=== PATIENT | male | born 1940 | race African-American/Black ===

== ENCOUNTER 2016-07-26 14:04 | Inpatient (IN) | payer MEDICARE, OTHER ==
[2016-07-26] MEDS ORDERED: SODIUM CHLORIDE 0.9% 1,000 ML IV STA ×3 (15:28→17:41)
--- NOTE | 2016-07-26 15:45 | ED ---
General Adult HPI - General Chief complaint: Extremity Problem,Nontraumatic Stated complaint: DIFFICULTY WALKING Time Seen by Provider: 07/26/16 15:06 Source: patient Mode of arrival: EMS Limitations: no limitations - History of Present Illness Initial comments: Patient is a 75-year-old male who presents to the ED with a chief complaint of difficulty with ambulation. Patient states that he was at home earlier today and noted that he was having a difficult time getting from a seated position to a standing position. Patient states that his legs were very painful when he finally got onto his feet. Patient states that he feels pain in the right flank and sciatic region that radiates down the right posterior leg. Patient notes that he has also felt weakness of both lower extremities. She states that this is a relatively new problem. Patient notes that he drank somewhere between a half pint and a full pint of hard liquor today. He states that he drinks on a regular basis. Patient denies any visual changes or weakness of his upper extremities. Patient denies any recent trauma to his back. Patient denies any fevers or chills. He denies any difficulty with urination or urinary incontinence. Patient denies any difficulty with bowel movements or fecal incontinence. 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 He states that his most recent CVA was in February 2016. His hospitalized at [facility] when this occurred. 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 Patient states that he might have also had a syncopal episode today. He is very vague regarding details of this incident. - Related Data Home Medications Medication Instructions Recorded Confirmed Albuterol Sulfate [Proair Hfa] 2 puff INHALATION RT-Q6H PRN 02/13/16 07/26/16 Aspirin EC [Ecotrin Low Dose] 81 mg PO DAILY 02/13/16 07/26/16 Gabapentin [Neurontin] 300 mg PO HS 02/13/16 07/26/16 Ibuprofen [Motrin] 800 mg PO TID PRN 07/26/16 07/26/16 Naproxen 500 mg PO Q12HR 07/26/16 07/26/16 Pravastatin Sodium [Pravachol] 20 mg PO HS 07/26/16 07/26/16 Ranitidine HCl 300 mg PO HS 07/26/16 07/26/16 Allergies Allergy/AdvReac Type Severity Reaction Status Date / Time iodine Allergy Unknown Verified 07/26/16 14:23 Review of Systems ROS Statement: Those systems with pertinent positive or pertinent negative responses have been documented in the HPI. ROS Other: All systems not noted in ROS Statement are negative. Constitutional: Reports: weakness. Denies: fever, chills, night sweats Eyes: Denies: eye pain, vision change ENT: Denies: ear pain, throat pain, dental pain, hearing loss, epistaxis Respiratory: Denies: cough, dyspnea, wheezes Cardiovascular: Denies: chest pain, palpitations, dyspnea on exertion Endocrine: Reports: fatigue Gastrointestinal: Denies: abdominal pain, nausea, vomiting, diarrhea, constipation Genitourinary: Denies: urgency, dysuria, frequency, hematuria Musculoskeletal: Reports: myalgia. Denies: back pain, joint swelling Skin: Denies: rash, lesions, change in color Neurological: Reports: weakness (weakness of the bilateral lower legs secondary to pain). Denies: headache, numbness, paresthesias Psychiatric: Denies: anxiety, depression Past Medical History Past Medical History: Atrial Fibrillation, CVA/TIA, Hypertension, Myocardial Infarction ([place]) Additional Past Medical History / Comment(s): Glaucoma; CVAx2; History of Any Multi-Drug Resistant Organisms: None Reported Past Surgical History: Unable to Obtain Past Psychological History: No Psychological Hx Reported Smoking Status: Never smoker Past Alcohol Use History: Occasional Past Drug Use History: None Reported General Exam Limitations: no limitations General appearance: alert, in no apparent distress Head exam: Present: atraumatic, normocephalic, normal inspection Eye exam: Present: normal appearance, PERRL, EOMI, other (pupils are 3mm, equal reactive to light). Absent: scleral icterus Pupils: Present: normal accommodation ENT exam: Present: normal exam, mucous membranes dry Neck exam: Present: normal inspection Respiratory exam: Present: normal lung sounds bilaterally. Absent: respiratory distress, wheezes, rales, rhonchi, stridor Cardiovascular Exam: Present: regular rate, irregular rhythm GI/Abdominal exam: Present: soft. Absent: distended, tenderness, guarding, rebound Extremities exam: Present: normal inspection, full ROM, tenderness (tenderness to palpation in the region of the right SI joint), other (5/5 strength of the bilateral upper and lower extremities) Back exam: Present: tenderness (tenderness in the region of the right SI joint) Neurological exam: Present: alert, oriented X3 Psychiatric exam: Present: normal affect, normal mood. Absent: depressed, agitated, anxious Skin exam: Present: warm, dry, intact Course Vital Signs 07/26/16 07/26/16 07/26/16 14:20 17:39 17:48 Temperature 96.7 F L 97.7 F Pulse Rate 87 85 85 Respiratory 18 18 18 Rate Blood Pressure 105/55 78/53 77/50 O2 Sat by Pulse 97 97 96 Oximetry 07/26/16 07/26/16 07/26/16 17:50 17:53 17:59 Temperature Pulse Rate 88 86 Respiratory 18 18 Rate Blood Pressure 81/53 84/52 98/56 O2 Sat by Pulse 97 98 Oximetry 07/26/16 07/26/16 18:20 19:47 Temperature Pulse Rate 87 91 Respiratory 18 16 Rate Blood Pressure 97/62 100/70 O2 Sat by Pulse 100 100 Oximetry EKG Findings - EKG Comments: EKG Findings:: EKG demonstrates atrial fibrillation with a rate of 86. There are no concerning ST or T-wave changes. There is a right bundle branch block present. Medical Decision Making - Medical Decision Making Patient is a 75-year-old male who presents to the ED with a chief complaint of pain with ambulation. Patient states that these symptoms have been present over the course the day today. Patient remarks that he may have also had a syncopal episode earlier today. States that he was sitting in his house when a friend woke him up, stating that he was drooling out of the side of his mouth unresponsive for a period of time. Patient does not remember this episode frequently. She does pain in the right SI region. There is no bony tenderness to palpation on examination. Patient does have atrial fibrillation but is not actively anticoagulated this point in time. Patient does have history of CVA 3. Most recent CVA in February 2016. Patient states that he has no deficits from prior CVAs. Patient denies any chest pain, shortness of breath. Denies any dysuria or hematuria. Check CT head given syncopal episode and complaints of lower extremity weakness. Check CPK given the patient is complaining of pain in the bilateral anterior thighs. Possible patient is suffering from sciatica given right lower extremity pain that is located particularly in the region of the right SI joint. Check x-ray lumbar spine as well given the patient is complaining of pain overall in this region. Check CBC, BMP,. Check PT/INR. EKG. Troponin and BNP as well. 5:27 PM Patient noted to have evidence of a chaotic. Baseline creatinine 1.30. Creatinine today noted to be 3.60. In addition, patient's CK noted at 5500. We 'll check urine electrolytes and ultrasound of kidneys and bladder. Suspect that TYRESE is prerenal in nature. Will continue with maintenance fluids at 150 mL /h. 5:48 PM Updated that patient's BP is 78/48. Suspect patient is quite dehydrated. Will bolus with IVF. 6:05 PM BP improved to 96/58. Will ensure that BP continues to improve before sending patient for Ultrasound Renal. 7:20 PM Patient awakens easily. States that he is feeling improved and that the pain in his legs is better. BP is 103/56. Will order additional 500cc IVF. 8:04 PM Patient's BP stable at 100-110 systolic. Spoke with Arina Maya, who accepts admission of patient. She has requested that Nephrology be placed on consult. - Lab Data Result diagrams: 07/26/16 13:26 07/26/16 13:26 Lab Results 07/26/16 07/26/16 07/26/16 Range/Units 13:26 13:26 13:26 WBC 5.3 (3.8-10.6) k/uL RBC 3.82 L (4.30-5.90) m/uL Hgb 12.7 L (13.0-17.5) gm/dL Hct 37.8 L (39.0-53.0) % MCV 98.8 (80.0-100.0) fL MCH 33.1 (25.0-35.0) pg MCHC 33.5 (31.0-37.0) g/dL RDW 12.8 (11.5-15.5) % Plt Count 102 L (150-450) k/uL Neutrophils % (Manual) 47.0 % Lymphocytes % (Manual) 33.0 % Monocytes % (Manual) 17.0 % Eosinophils % (Manual) 3.0 % Neutrophils # (Manual) 2.5 (1.3-7.7) k/uL Lymphocytes # (Manual) 1.7 (1.0-4.8) k/uL Monocytes # (Manual) 0.9 (0-1.0) k/uL Eosinophils # (Manual) 0.2 (0-0.7) k/uL Nucleated RBCs 0 (0-0) /100 WBC Manual Slide Review Performed Large Platelets Present Polychromasia Present PT (9.0-12.0) sec INR (<1.1) Sodium 139 (137-145) mmol/L Potassium 4.2 (3.5-5.1) mmol/L Chloride 105 (98-107) mmol/L Carbon Dioxide 18 L (22-30) mmol/L Anion Gap 16 mmol/L BUN 21 H (9-20) mg/dL Creatinine 3.60 H (0.66-1.25) mg/dL Est GFR (MDRD) Af Amer 20 (>60 ml/min/1.73 sqM) Est GFR (MDRD) Non-Af 17 (>60 ml/min/1.73 sqM) Glucose 94 (74-99) mg/dL Osmolality (280-301) mosm/kg Calcium 9.3 (8.4-10.2) mg/dL Magnesium 1.5 L (1.6-2.3) mg/dL Total Bilirubin 1.0 (0.2-1.3) mg/dL AST 114 H (17-59) U/L ALT 46 (21-72) U/L Alkaline Phosphatase 70 (38-126) U/L Creatine Kinase 5503 H (55-170) U/L Troponin I (0.000-0.034) ng/mL NT-Pro-B Natriuret Pep 532 pg/mL Total Protein 6.9 (6.3-8.2) g/dL Albumin 3.8 (3.5-5.0) g/dL Serum Alcohol 20 mg/dL 07/26/16 07/26/16 07/26/16 Range/Units 13:26 13:26 13:26 WBC (3.8-10.6) k/uL RBC (4.30-5.90) m/uL Hgb (13.0-17.5) gm/dL Hct (39.0-53.0) % MCV (80.0-100.0) fL MCH (25.0-35.0) pg MCHC (31.0-37.0) g/dL RDW (11.5-15.5) % Plt Count (150-450) k/uL Neutrophils % (Manual) % Lymphocytes % (Manual) % Monocytes % (Manual) % Eosinophils % (Manual) % Neutrophils # (Manual) (1.3-7.7) k/uL Lymphocytes # (Manual) (1.0-4.8) k/uL Monocytes # (Manual) (0-1.0) k/uL Eosinophils # (Manual) (0-0.7) k/uL Nucleated RBCs (0-0) /100 WBC Manual Slide Review Large Platelets Polychromasia PT 10.8 (9.0-12.0) sec INR 1.1 (<1.1) Sodium (137-145) mmol/L Potassium (3.5-5.1) mmol/L Chloride (98-107) mmol/L Carbon Dioxide (22-30) mmol/L Anion Gap mmol/L BUN (9-20) mg/dL Creatinine (0.66-1.25) mg/dL Est GFR (MDRD) Af Amer (>60 ml/min/1.73 sqM) Est GFR (MDRD) Non-Af (>60 ml/min/1.73 sqM) Glucose (74-99) mg/dL Osmolality 297 (280-301) mosm/kg Calcium (8.4-10.2) mg/dL Magnesium (1.6-2.3) mg/dL Total Bilirubin (0.2-1.3) mg/dL AST (17-59) U/L ALT (21-72) U/L Alkaline Phosphatase (38-126) U/L Creatine Kinase (55-170) U/L Troponin I 0.018 (0.000-0.034) ng/mL NT-Pro-B Natriuret Pep pg/mL Total Protein (6.3-8.2) g/dL Albumin (3.5-5.0) g/dL Serum Alcohol mg/dL Disposition Clinical Impression: TYRESE (acute kidney injury), Rhabdomyolysis Disposition: ADMITTED IP TO THIS [facility] Condition: Good Time of Disposition: 20:05 Decision to Admit Reason: Admit from EC Decision Date: 07/26/16 Decision Time: 20:05
[2016-07-26 16:39] LABS: INR 1.1 (<1.1); Prothrombin Time 10.8 sec (9.0-12.0)
[2016-07-26 16:45] LABS: Calcium 9.3 mg/dL (8.4-10.2); Magnesium 1.5 mg/dL (1.6-2.3); Potassium 4.2 mmol/L (3.5-5.1); Total Protein 6.9 g/dL (6.3-8.2)
[2016-07-26 16:51] LABS: Aty Lym Flag Slight; CH 33.2; CHCM 33.7; HCT 37.8 % (39.0-53.0); HDW 2.32; HGB 12.7 gm/dL (13.0-17.5); MCH 33.1 pg (25.0-35.0); MCHC 33.5 g/dL (31.0-37.0); MCV 98.8 fL (80.0-100.0); Mean Platelet Volume 7.8; RBC 3.82 m/uL (4.30-5.90); RDW 12.8 % (11.5-15.5); WBC 5.3 k/uL (3.8-10.6); WBC (Perox) 5.23
--- NOTE | 2016-07-26 16:59 | CT ---
EXAMINATION TYPE: CT brain wo con DATE OF EXAM: 07/26/2016 4:52 PM COMPARISON: 02/13/2016 HISTORY: 75-year-old male with neurologic deficits, lower extremity weakness. History of multiple CVA s. TECHNIQUE: Examination was done in axial plane without intravenous contrast. Coronal and sagittal r econstructions performed. CT DLP: 1121.00 mGycm Automated exposure control for dose reduction was used. FINDINGS: There is no evidence of acute intracranial hemorrhage, acute ischemic changes, mass, mass-effect, or extra-axial fluid collection. There is no effacement of cerebral sulci or basal subarachnoid cister ns. There is no hydrocephalus. There is no midline shift. Herrera-white matter distinction is preserv ed. Similar mild generalized supratentorial volume loss. Stable small remote cortical infarct right front al lobe. Paranasal sinuses are well pneumatized. Minimal partial opacification inferior most left mastoid air cells. Orbits and globes are intact. IMPRESSION: No acute intracranial abnormality seen. Stable findings with mild atrophy and remote small right fron katrina lobe cortical infarct.
[2016-07-26 17:12] LABS: Add Differential Manual Differential
--- NOTE | 2016-07-26 17:13 | XR ---
EXAMINATION TYPE: XR lumbar spine 2 or 3V DATE OF EXAM: 07/26/2016 5:04 PM COMPARISON: NONE HISTORY: Low back pain TECHNIQUE: 3 views FINDINGS: The lumbar vertebra have normal alignment. There is narrowing of the disc spaces in the low er lumbar spine from L3 to S1. Endplates are indistinct at L5-S1 level. There is inferior vena cava f ilter noted. Sacroiliac joints are normal. There is no compression fracture. IMPRESSION: Spondylotic changes. Indistinct L5-S1 disc could relate to discitis. Clinical correlation is recommended. MR scan would be helpful for further evaluation if clinically indicated. No compress ion fracture seen.
[2016-07-26 17:16] LABS: Nucleated Red Blood Cells 0 /100 WBC (0-0); Total Cells Counted 100
[2016-07-26 17:17] LABS: Large Platelets Present; Manual Review Performed
[2016-07-26 17:18] LABS: Polychromasia Present
[2016-07-26] MEDS: MAGNESIUM SULFATE-D5W PMX 1 GM in DEXTROSE/WATER 1 100ML.BAG IVPB SCH ×2 (17:55→19:07)
--- NOTE | 2016-07-26 19:12 | US ---
EXAMINATION TYPE: US renals and bladder DATE OF EXAM: 07/26/2016 6:53 PM COMPARISON: NONE CLINICAL HISTORY: TYRESE. Patient is a poor historian EXAM MEASUREMENTS: Right Kidney: 10.1 x 5.7 x 4.2 cm Left Kidney: 9.6 x 5.6 x 5.0 cm Right Kidney: No hydronephrosis or masses seen Left Kidney: No hydronephrosis or masses seen Bladder: wnl Bilateral Jets seen: Yes There is no evidence for hydronephrosis at this point in time. No masses are identified. The urinar y bladder is anechoic. Bilateral ureteral jets are seen. IMPRESSION: Normal retroperitoneal sonogram exam. No evidence of renal mass or obstruction.
[2016-07-26] MEDS ORDERED: SODIUM CHLORIDE 0.9% 500 ML IV ONE (19:15)
[2016-07-26] MEDS ORDERED: NALOXONE 0.4 MG/ML 1 ML VIAL IV PRN (20:05)
[2016-07-26 20:21] LABS: Appearance,Urine Clear (Clear); Bacteria,Urine Rare /hpf; Bilirubin,Urine Negative (Negative); Glucose,Urine (UA) Negative (Negative); Ketones,Urine Negative (Negative); Leukocyte Esterase,Urine Negative (Negative); Mucus,Urine Rare /hpf; Nitrite,Urine Negative (Negative); PH, Urine 5.5 (5.0-8.0); Particle Count 2338; Protein,Urine Trace (Negative); RBC,Urine 1 /hpf (0-5); Specific Gravity,Urine 1.016 (1.001-1.035); Squamous Epithelial Cell,Urine 1 /hpf (0-4); UA Billing (MACRO vs. MICRO) MICRO; WBC,Urine 1 /hpf (0-5)
[2016-07-26 20:42] LABS: Creatinine,Urine Random 296.4 mg/dL
[2016-07-26 22:29] VITALS: BMI 26.1
[2016-07-27 08:39] LABS: Basophils % (A) 0 %; CH 32.8; CHCM 32.7; Eosinophils # (A) 0.1 k/uL (0-0.7); Eosinophils % (A) 3 %; HCT 36.9 % (39.0-53.0); HDW 2.32; HGB 12.2 gm/dL (13.0-17.5); Luc # (Auto) 0.18; Luc % (Auto) 4; Lymphocytes # (A) 1.1 k/uL (1.0-4.8); Lymphocytes % (A) 26 %; MCH 33.2 pg (25.0-35.0); MCHC 32.9 g/dL (31.0-37.0); MCV 100.7 fL (80.0-100.0); Mean Platelet Volume 7.5; Monocytes # (A) 0.4 k/uL (0-1.0); Monocytes % (A) 9 %; Neutrophils # (A) 2.4 k/uL (1.3-7.7); Neutrophils % (A) 57 %; RBC 3.67 m/uL (4.30-5.90); RDW 12.8 % (11.5-15.5); WBC 4.1 k/uL (3.8-10.6); WBC (Perox) 4.31
[2016-07-27 09:10] LABS: Calcium 8.5 mg/dL (8.4-10.2); Magnesium 1.8 mg/dL (1.6-2.3)
--- NOTE | 2016-07-27 09:40 | P.NPCON ---
History of Present Illness - Reason for Consult acute renal failure - History of Present Illness Reason for consultation: Acute kidney injury History of present illness: Patient is a 75-year-old male seen in renal consultation for acute kidney injury. His creatinine in February 2016 was 1.3 and was elevated at 3.6 this admission. It is down to 1.72 this morning. Patient presented to the hospital with weakness in his lower extremities. States he was unable to stand and had difficulty maintaining his balance. CT of the brain revealed no acute changes. He was also hypotensive on admission with systolic blood pressure in the 70s. He did receive a 2-1/2 L bolus of 0.9 saline. Blood pressures now is 109/71. He also admits to taking Motrin and naproxen about 2-3 times daily for the last 1 month. He also has a history of heavy alcohol abuse and has been drinking about half a pint to a pint daily of liquor. His CK level was elevated at 5503 on admission and is improved to 2631 today. Denies any chest pain or shortness of breath. Admits to good urine output. No hematuria or dysuria. No vomiting or diarrhea. Vital signs are stable. General: The patient appeared well nourished and normally developed. HEENT: Head exam is unremarkable. Neck is without jugular venous distension. LUNGS: Lungs are clear to auscultation and percussion. Breath sounds decreased. HEART: Rate and Rhythm are regular. First and second heart sounds normal. No murmurs, rubs or gallops. ABDOMEN: Abdominal exam reveals normal bowel sounds. Non-tender and non- distended. No evidence of peritonitis. EXTREMITITES: No clubbing, cyanosis, or edema. Past Medical History Past Medical History: Atrial Fibrillation, Asthma, Chest Pain / Angina, CVA/TIA , GERD/Reflux, Hypertension, Osteoarthritis ([place]), Pneumonia, Prostate Disorder, Renal Disease Additional Past Medical History / Comment(s): Glaucoma; CVAx2;Chronic back pain History of Any Multi-Drug Resistant Organisms: None Reported Past Surgical History: Back Surgery, Joint Replacement Additional Past Surgical History / Comment(s): Left knee surgery, lower lumbar surgery Past Psychological History: No Psychological Hx Reported Smoking Status: Never smoker Past Alcohol Use History: Occasional Additional Past Alcohol Use History / Comment(s): Pt states he drinks 2-3 shots 3 days a week. Denies smoking or any other drugs. Past Drug Use History: None Reported Medications and Allergies Home Medications Medication Instructions Recorded Confirmed Type Albuterol Sulfate [Proair Hfa] 2 puff INHALATION RT-Q6H PRN 02/13/16 07/26/16 History Aspirin EC [Ecotrin Low Dose] 81 mg PO DAILY 02/13/16 07/26/16 History Gabapentin [Neurontin] 300 mg PO HS 02/13/16 07/26/16 History Ibuprofen [Motrin] 800 mg PO TID PRN 07/26/16 07/26/16 History Naproxen 500 mg PO Q12HR 07/26/16 07/26/16 History Pravastatin Sodium [Pravachol] 20 mg PO HS 07/26/16 07/26/16 History Ranitidine HCl 300 mg PO HS 07/26/16 07/26/16 History Brimonidine Tartrate [Alphagan P 1 drop OPHTHALMIC BID 07/27/16 07/27/16 History 0.2% Ophth Soln] Carvedilol [Coreg] 3.125 tab PO BID 07/27/16 07/27/16 History Dorzolamide HCl [Trusopt 2%] 1 drop OPHTHALMIC BID 07/27/16 07/27/16 History Tamsulosin HCl [Flomax] 0.4 cap PO DAILY 07/27/16 07/27/16 History Timolol [Betimol 0.5% Ophth Soln] 1 drop OPHTHALMIC BID 07/27/16 07/27/16 History Allergies Allergy/AdvReac Type Severity Reaction Status Date / Time iodine Allergy Unknown Verified 07/26/16 14:23 Physical Exam Vitals: Vital Signs Temp Pulse Pulse Resp BP BP Pulse Ox 07/27/16 07:00 97.0 F L 68 20 109/71 99 07/26/16 21:43 96.8 F L 82 18 115/69 100 07/26/16 20:56 83 16 119/71 100 Intake and Output 07/26/16 07/27/16 07/27/16 22:59 06:59 14:59 Output Total 500 Balance -500 Output: Urine 500 Other: # Voids 0 1 # Bowel Movements 0 Weight 85 kg 85 kg Results - Lab Results Most recent lab results Calcium 8.5 mg/dL (8.4-10.2) 07/27/16 08:29 Phosphorus 4.0 mg/dL (2.5-4.5) 07/27/16 08:29 Magnesium 1.8 mg/dL (1.6-2.3) 07/27/16 08:29 07/27/16 08:29 07/27/16 08:29 Assessment and Plan Plan: Assessment: #1. Nonoliguric acute kidney injury mostly prerenal in nature secondary to NSAIDs and mild component of rhabdomyolysis. Improving. Creatinine was 3.6 on admission and is down to 1.72 today. Urinalysis is noted to be quite benign. No hydronephrosis present on renal ultrasound. #2. Rhabdomyolysis. Improving. #3. Alcohol abuse. #4. Metabolic acidosis secondary to acute kidney injury. Improved. Plan: Start normal saline to be run at 250 mL an hour for the next 24 hours. May decrease rate tomorrow as oral intake improves and rhabdomyolysis resolves. Avoid nephrotoxic agents and hypotensive episodes. Repeat CK level in the morning. Repeat electrolytes in the morning. Thank you for the consultation. I will continue to follow the patient with you during his hospital stay.
[2016-07-27] MEDS: SODIUM CHLORIDE 0.9% 1,000 ML IV SCH ×2 (10:48→17:20)
[2016-07-27] MEDS ORDERED: ALBUTEROL NEBULIZED 2.5 MG/3 ML INHALATION PRN (23:02)
[2016-07-28] MEDS: HEPARIN SODIUM,PORCINE 5,000 UNIT/ML 1 ML VIAL SQ SCH ×3 (00:24→16:08)
[2016-07-28] MEDS: SODIUM CHLORIDE 0.9% 1,000 ML IV SCH ×3 (00:24→12:44)
[2016-07-28 08:54] LABS: Anion Gap 10 mmol/L; Blood Urea Nitrogen 10 mg/dL (9-20); Calcium 8.6 mg/dL (8.4-10.2); Carbon Dioxide 21 mmol/L (22-30); Chloride 111 mmol/L (98-107); Glucose 93 mg/dL (74-99); Non-African American GFR(MDRD) >60 (>60 ml/min/1.73 sqM); Potassium 3.6 mmol/L (3.5-5.1); Sodium 142 mmol/L (137-145)
[2016-07-28] MEDS ORDERED: TAMSULOSIN 0.4 MG CAP.ER.24H PO SCH (09:00)
[2016-07-28] MEDS ORDERED: ASPIRIN 81 MG CHEW PO SCH (09:00)
--- NOTE | 2016-07-28 11:45 | P.PN ---
Subjective This is a 75-year-old male seen in consultation because of acute kidney injury from nonsteroidals and hypotension and history of alcohol intake. He has significantly improved subjectively and has no complaints now. He is on IV fluids. He has good urine output. Denies any dizziness chest pain shortness of breath fever chills abdominal pain. No nausea vomiting diarrhea. Good appetite. His creatinine is improved back to normal Objective - Vital Signs Vital signs: Vital Signs Temp 97.6 F 07/28/16 07:00 Pulse 67 07/28/16 07:00 Resp 14 07/28/16 07:00 BP 135/87 07/28/16 07:00 Pulse Ox 99 07/28/16 07:00 Intake & Output 07/27/16 07/28/16 07/28/16 18:59 06:59 18:59 Intake Total 480 450 Output Total 950 1900 1025 Balance -470 -1450 -1025 Intake: IV 150 Sodium Chloride 0.9% 1, 150 000 ml @ 150 mls/hr IV . Q6H40M [facility] Rx#:[id number] Oral 480 300 Output: Urine 950 1900 1025 Other: Voiding Method Toilet # Bowel Movements 1 On examination is awake alert oriented HEENT exam no JVP neck is supple no facial asymmetry. Lungs clear to auscultate and percussion good air entry bilaterally Heart sounds are unremarkable for any murmur rub gallop Abdomen soft nontender no organomegaly ascites masses Extremity exam was no edema Neurologically awake alert oriented no asterixis. No focal motor deficit. - Labs CBC & Chem 7: 07/27/16 08:29 07/28/16 07:53 Labs: Abnormal Lab Results - Last 24 Hours (Table) 07/28/16 07/28/16 Range/Units 07:53 07:53 Chloride 111 H (98-107) mmol/L Carbon Dioxide 21 L (22-30) mmol/L CK-MB (CK-2) 9.1 H* (0.0-2.4) ng/mL Assessment and Plan Plan: Impression. 1. Acute kidney injury secondary to low blood pressure, perhaps reduced intake and improved with IV fluids. Creatinine is down to 1.02 from a high of 3.6. 2. Mild rhabdomyolysis without any myoglobinuria anuric acute kidney injury as creatinine has rapidly improved. His CK went down from 5503 to 2631. None is available today. Recommendation. Maintain IV fluids for another 24 hours he could be discharged tomorrow. Watch for withdrawal symptoms
--- NOTE | 2016-07-28 11:48 | HP ---
DATE OF ADMISSION: 07/26/2016 CHIEF COMPLAINT: Generalized weakness. HISTORY OF PRESENT ILLNESS: Mr. Lyons is a 75-year-old male with a known history of chest pain/angina, CVA, history of transient ischemic attack x2, GERD, and atrial fibrillation. He presented to the hospital after sustaining a fall due to lower extremity weakness and fell on the couch. The patient states that his legs gave way. The patient was found to have elevated creatinine of about 3.6 and elevated BUN level and acute kidney injury. The patient has been continued on IV fluids and renal function improved with creatinine level to 1.7 today. The patient otherwise denied any fevers or chills. No recent illness. The patient was found to have elevated CPK level, which is also trending down. Nephrology has seen the patient. In the EDC the patient had a CT of the head done, showed no acute changes. Patient was hypotensive on admission with blood pressure around 70 mmHg. Currently blood pressure has improved. The patient does have a history of alcohol abuse and has been drinking about a pint a day of liquor. Denied any chest pain or shortness of breath. No nausea, vomiting, abdominal pain. No recent illnesses. No sick contacts at home. No recent travel. Denies any hematuria or dysuria. No complaints of abdominal pain. REVIEW OF SYSTEMS: CONSTITUTIONAL: No fever. No chills. RESPIRATORY: No cough or sputum production. CARDIOVASCULAR: No chest pain or shortness of breath. ABDOMEN: No nausea, vomiting, abdominal pain. GENITOURINARY: Negative. ENDOCRINE: Negative. PSYCHIATRY: Negative. SKIN: Negative. All other 14-point review of systems negative except as above. PAST MEDICAL HISTORY: Atrial fibrillation, asthma, chest pain/angina, CVA/TIA, GERD, hypertension, osteoarthritis, pneumonia, prostate disorder, glaucoma, CVA x2, chronic back pain. PAST SURGICAL HISTORY: Back surgery, joint replacement, left knee surgery, lower lumbar surgery. No psychosocial history. SOCIAL HISTORY: Never a smoker. Drinks 2 to 3 shots a day, 3 days a week. Home medications: 1. Albuterol HFA. 2. Aspirin. 3. Gabapentin. 4. Ibuprofen. 5. Naprosyn. 6. Lovastatin. 7. Ranitidine. 8. Brimonidine. 9. Coreg. 10. Dolamide eyedrops. 11. Flomax, 12. Timolol eyedrops. ALLERGIES: IODINE. FAMILY HISTORY: Denied history of hypertension, diabetes mellitus, ( ) or premature heart disease in the family. PHYSICAL EXAMINATION: A 75-year-old male, lying in bed, awake, alert, oriented, x3. Appears to be in no apparent distress. Awake, alert, oriented x2 to 3. VITALS: Blood pressure is 127/78, pulse is 74, respirations 20, afebrile, pulse ox 98% on 2 L nasal cannula. HEENT: Atraumatic, normocephalic. NECK: Supple. No JVD. CVS: S1, S2 heard. No murmurs, no gallop. LUNGS: Bilateral air entry is present. No wheezing. Nonlabored breathing. ABDOMEN: Soft, nontender. LABOR UNION BUSINESS REPRESENTATIVE: Awake, alert, oriented x2 to 3. Able to move all extremities. EXTREMITIES: No edema. Pulses palpable bilaterally. No clubbing or cyanosis. PSYCHIATRIC: Cooperative, seems disoriented. LABORATORY DATA: WBC is 5.3, hemoglobin 12.7, platelet 102. INR 1.1. Sodium 139, potassium 4.2, chloride 105, bicarb 18, BUN 21, creatinine 3.6, magnesium 1.5. CPK 5503. Anti-ProBNP 532. X-ray of the lumbar spine, spondylitic changes, indistinct L to S1 disk, could be related to diskitis. CT head no acute abnormalities seen. EKG, sinus rhythm with occasional premature ventricular contractions. Renal ultrasound, normal retroperitoneal sonogram, no evidence of renal mass or obstruction. IMPRESSION AND PLAN: 1. Acute metabolic encephalopathy secondary to acute kidney injury and volume depletion and dehydration. 2. ( ) acute kidney injury, most likely prerenal. 3. Acute on chronic kidney disease stage III secondary to hypertensive nephrosclerosis. 4. Hypertension. 5. Alcohol abuse. 6. Metabolic encephalopathy secondary to acute kidney injury, improved now. PLAN: Heparin subcu. Hold NSAID medication. Will follow up on CPK level. Nephrology is on board. Further recommendations based on the clinical course.
[2016-07-28] MEDS ORDERED: THIAMINE 100 MG TAB PO SCH (12:00)
[2016-07-28] MEDS ORDERED: MULTIVITAMINS, THERA 1 EACH TAB PO SCH (12:00)
[2016-07-28 15:45] VITALS: BP 157/89; PULSE 72; RESP 16; TEMP 98.1
[2016-07-28] MEDS ORDERED: FAMOTIDINE 20 MG TAB PO SCH (21:00)
[2016-07-28] MEDS ORDERED: PRAVASTATIN SODIUM 20 MG TAB PO SCH (21:00)
--- NOTE | 2016-07-31 07:19 | DS ---
DATE OF ADMISSION: 07/26/2016 DATE OF DISCHARGE: 07/28/2016 DISCHARGE DIAGNOSES: 1. Acute metabolic encephalopathy secondary to acute kidney injury and volume depletion and dehydration, improved now. 2. Acute kidney injury, most likely prerenal. 3. Acute on chronic kidney disease, stage III secondary to hypertensive nephrosclerosis. 4. Rhabdomyolysis, elevated CPK level. 5. Hypertension 6. Alcohol abuse on a daily basis. HOSPITAL COURSE: Mr. Lyons is a 76-year-old male with known history of alcohol abuse and hypertension and admitted to the hospital without altered mental status and found to have dehydration with elevated creatinine level to 3.6 and BUN level. Patient was hydrated while in the hospital with 150 mL per hour normal saline. Creatinine level improved to baseline now. Otherwise, patient was also having rhabdomyolysis, elevated CPK level in ( ). Patient CPK level came around 1200 now. Patient did improve symptomatically. Otherwise, patient was advised to stay in the hospital one more day to continue the IV fluids and recheck the lab values, but patient wants to go home today and wants to be discharged. Currently, hemodynamically stable and will be discharged home and advised to follow with the primary care physician in the next 1 to 3 days. Patient was counseled extensively for alcohol abuse and cessation. DISCHARGE PHYSICAL EXAMINATION: A 76-year-old male lying in bed, comfortably. Awake, alert, oriented, x3. Appears to be in no apparent distress. VITALS: Blood pressure 157/89, pulse is 72, respirations 16, temperature afebrile, pulse ox 99% on room air. LABORATORY DATA: Reviewed. Creatinine came down to 1.02, CPK level 1246. UA negative. Other labs showed within normal limits. Platelet count has been stable, but low due to alcohol abuse. Discharge medications include: 1. Albuterol sulfate 2 puffs q.6 hourly p.r.n. for short of breath. 2. Aspirin 81 mg p.o. daily. 3. Gabapentin 300 mg p.o. at bedtime. 4. Naprosyn 500 mg p.o. q.12 hours p.r.n. for pain. 5. Pravastatin 20 mg p.o. at bedtime. 6. Ranitidine 300 mg p.o. at bedtime. 7. Alphagan ophthalmic drops one drop ophthalmic b.i.d. 8. Coreg 3.125 mg p.o. b.i.d. 9. Dorzolamide eyedrops one drop b.i.d. 10. Flomax 0.4 mg capsule p.o. daily. 11. Timolol eye drops one drop b.i.d. 12. Multivitamins one capsule p.o. daily. 13. Thiamine 100 mg p.o. daily. The patient is being discharged home in stable condition. Activity as tolerated. Heart healthy diet. Follow with Dr. King in the clinic. Home with self-care. Regular diet. Counseling for alcohol cessation.
== END 2016-07-28 17:45 | disposition home or self-care (01) | DRG 682 ==
LOC: EC 14:04 → 4MS4W 20:11
PROVIDERS: ADMIT Internal Medicine; ATTEND Internal Medicine
DX: N17.9 Acute kidney failure, unspecified (principal); G93.41 Metabolic encephalopathy; E87.2 Acidosis; M62.82 Rhabdomyolysis; I48.91 Unspecified atrial fibrillation; E86.0 Dehydration; F10.10 Alcohol abuse, uncomplicated; I12.9 Hypertensive chronic kidney disease with stage 1 through stage 4 chronic kidney disease, or unspecified chronic kidney disease; H40.9 Unspecified glaucoma; I25.2 Old myocardial infarction; J45.909 Unspecified asthma, uncomplicated; K21.9 Gastro-esophageal reflux disease without esophagitis; M54.30 Sciatica, unspecified side; N18.3 Chronic kidney disease, stage 3 (moderate); T39.395A Adverse effect of other nonsteroidal anti-inflammatory drugs [NSAID], initial encounter; Z79.899 Other long term (current) drug therapy; Z86.73 Personal history of transient ischemic attack (TIA), and cerebral infarction without residual deficits; Z79.82 Long term (current) use of aspirin; Z88.3 Allergy status to other anti-infective agents
CPT/HCPCS: 36415; 70450; 72100; 76770; 80048; 80053; 80320; 81001; 82550; 82553; 82570; 83735; 83880; 83930; 83935; 84100; 84133; 84300; 84484; 85025; 85610; 87086; 93005; 96361; 96365; 96366; 99285

== ENCOUNTER 2016-10-10 16:08 | Emergency (ER) | payer MEDICARE, OTHER ==
--- NOTE | 2016-10-10 16:32 | ED ---
General Adult HPI - General Stated complaint: general Time Seen by Provider: 10/10/16 16:14 Source: patient, EMS, RN notes reviewed, old records reviewed - History of Present Illness Initial comments: Chief complaint and history of present illness a 76-year-old male here for complaint of a significant other giving him 2 pills. Patient states that approximately 2 hours prior to coming emergency room. Made him feel funny. He had a friend called the ambulance. Patient reports feeling better now than he did half hour earlier. The patient eventually told us that his significant other gave him 2 pills to make him hard so they can have sex. The patient's also been drinking ROM. - Related Data Home Medications Medication Instructions Recorded Confirmed Albuterol Sulfate [Proair Hfa] 2 puff INHALATION RT-Q6H PRN 02/13/16 07/26/16 Aspirin EC [Ecotrin Low Dose] 81 mg PO DAILY 02/13/16 07/26/16 Gabapentin [Neurontin] 300 mg PO HS 02/13/16 07/26/16 Naproxen 500 mg PO Q12HR 07/26/16 07/26/16 Pravastatin Sodium [Pravachol] 20 mg PO HS 07/26/16 07/26/16 Ranitidine HCl 300 mg PO HS 07/26/16 07/26/16 Brimonidine Tartrate [Alphagan P 1 drop OPHTHALMIC BID 07/27/16 07/27/16 0.2% Ophth Soln] Carvedilol [Coreg] 3.125 tab PO BID 07/27/16 07/27/16 Dorzolamide HCl [Trusopt 2%] 1 drop OPHTHALMIC BID 07/27/16 07/27/16 Tamsulosin HCl [Flomax] 0.4 cap PO DAILY 07/27/16 07/27/16 Timolol [Betimol 0.5% Ophth Soln] 1 drop OPHTHALMIC BID 07/27/16 07/27/16 Previous Rx's Medication Instructions Recorded Multivitamins, Thera [Multivitamin 1 each PO DAILY@1200 #30 tab 07/28/16 (formulary)] Thiamine [Vitamin B-1] 100 mg PO DAILY@1200 #14 tab 07/28/16 Allergies Allergy/AdvReac Type Severity Reaction Status Date / Time iodine Allergy Unknown Verified 07/26/16 14:23 Review of Systems ROS Statement: Those systems with pertinent positive or pertinent negative responses have been documented in the HPI. review of systems patient denies any headache or visual acuity changes no chest pain shortness breath GI/ problems. States he was feeling dizzy earlier, less so now. all systems are reviewed. Past medical problems significant for Marcia alston on aspirin. Asthma, angina, 2 strokes which she reports she recovered from fully. GERD, hypertension, osteoarthritis, pneumonia, prostate disorder, renal disease caused by taking too much ibuprofen. and glaucoma. Patient reports surgeries include laser surgery on his eyes for glaucoma. Back surgery. Total left knee, and cataracts. Patient has ALLERGIES iodine. Drinks alcohol. Denies smoking ROS Other: All systems not noted in ROS Statement are negative. Past Medical History Past Medical History: Atrial Fibrillation, Asthma, Chest Pain / Angina, CVA/TIA , GERD/Reflux, Hypertension, Osteoarthritis (OA), Pneumonia, Prostate Disorder, Renal Disease Additional Past Medical History / Comment(s): Glaucoma; CVAx2;Chronic back pain History of Any Multi-Drug Resistant Organisms: None Reported Past Surgical History: Back Surgery, Joint Replacement Additional Past Surgical History / Comment(s): Left knee surgery, lower lumbar surgery Past Psychological History: No Psychological Hx Reported Smoking Status: Never smoker Past Alcohol Use History: Occasional Additional Past Alcohol Use History / Comment(s): Pt states he drinks 2-3 shots 3 days a week. Denies smoking or any other drugs. Past Drug Use History: None Reported General Exam - General Exam Comments Initial Comments: General: The patient is awake , states friend given 2 pills admitted to feel dizzy. He states there were pills that was supposed to make an have an erection. Eye: Pupils are equal, round and reactive to light, extra-ocular movements are intact ; there is normal conjunctiva bilaterally. No signs of icterus. evidence of cataract surgery. Ears, nose, mouth and throat: There are moist mucous membranes and no oral lesions. Neck: The neck is supple, there is no tenderness . Cardiovascular: a regular rate and rhythm. No murmur, rub or gallop is appreciated. Respiratory: Lungs are clear to auscultation, respirations are non-labored, breath sounds are equal. No wheezes, stridor, rales, or rhonchi. Gastrointestinal: Soft, non-distended, non-tender abdomen without masses or organomegaly noted. There is no rebound or guarding present. No CVA tenderness. Bowel sounds are unremarkable. Back: There is no tenderness to palpation in the midline. There is no obvious deformity. No rashes noted. Musculoskeletal: Normal ROM, no tenderness, There is no pedal edema. There is no calf tenderness or swelling. Sensation intact. Pulses equal bilaterally 2+. Neurological: patient states she was drinking rum earlier. Rickreall more confused and dizzy earlier. States she is feeling much better now. Alert and oriented 3. No focal or lateralizing findings. Skin: Skin is warm and dry and no rashes or lesions are noted. Psychiatric: denies being depressed. Course Vital Signs 10/10/16 16:28 Temperature 98.0 F Pulse Rate 77 Respiratory 15 Rate Blood Pressure 146/98 O2 Sat by Pulse 98 Oximetry Medical Decision Making - Medical Decision Making The patient's drug triage was negative. He states his significant other gave him 2 pills to help medical direction. Does not know the name.The patient is alert and requests appropriately is able to ambulate wants to go home. - Lab Data Lab Results 10/10/16 Range/Units 15:30 Urine Opiates Screen Not Detected (NotDetected) Ur Oxycodone Screen Not Detected (NotDetected) Urine Methadone Screen Not Detected (NotDetected) Ur Propoxyphene Screen Not Detected (NotDetected) Ur Barbiturates Screen Not Detected (NotDetected) U Tricyclic Antidepress Not Detected (NotDetected) Ur Phencyclidine Scrn Not Detected (NotDetected) Ur Amphetamines Screen Not Detected (NotDetected) U Methamphetamines Scrn Not Detected (NotDetected) U Benzodiazepines Scrn Not Detected (NotDetected) Urine Cocaine Screen Not Detected (NotDetected) U Marijuana (THC) Screen Not Detected (NotDetected) Disposition Clinical Impression: Medication reaction Disposition: HOME SELF-CARE Condition: Fair Additional Instructions: Do not take medications other people give you. Decrease alcohol consumption. Follow-up with family physician Referrals: Bebe King MD [Primary Care Provider] - 1-2 days Time of Disposition: 17:44
[2016-10-10 16:37] VITALS: PULSE 77
[2016-10-10 18:31] VITALS: BP 132/82; RESP 18; TEMP 98.2
== END 2016-10-10 18:30 | disposition home or self-care (01) ==
LOC: EC 16:08
DX: R42 Dizziness and giddiness (principal); T50.905A Adverse effect of unspecified drugs, medicaments and biological substances, initial encounter; I48.91 Unspecified atrial fibrillation; K21.9 Gastro-esophageal reflux disease without esophagitis; I10 Essential (primary) hypertension; M19.90 Unspecified osteoarthritis, unspecified site; N42.9 Disorder of prostate, unspecified; Z79.1 Long term (current) use of non-steroidal anti-inflammatories (NSAID); Z79.899 Other long term (current) drug therapy; Z79.82 Long term (current) use of aspirin; Z88.8 Allergy status to other drugs, medicaments and biological substances
CPT/HCPCS: 80306; 99284

== ENCOUNTER 2016-10-11 17:04 | Inpatient (IN) | payer MEDICARE, OTHER ==
[2016-10-11] MEDS ORDERED: SODIUM CHLORIDE 0.9% 1,000 ML IV STA (17:27)
--- NOTE | 2016-10-11 17:34 | ED ---
General Adult HPI - General Chief complaint: Fall Stated complaint: Fall Time Seen by Provider: 10/11/16 17:08 Source: EMS, RN notes reviewed, old records reviewed Mode of arrival: EMS Limitations: no limitations - History of Present Illness Initial comments: Patient is 76-year-old male who presents emergency room today with a chief complaint of possible syncopal episode. He does admit that he was in the bathroom having a bowel movement. He states he cannot be members flushing the toilet and He knows he was down on the ground. He states he does not believe he lost consciousness but is unsure. Does not believe he hit his head. He has some pain in his lower back. He states he had to lay down ground for a few minutes before he was able to get up. He called EMS and EMS brought him here to the emergency room. Patient does admit he's had some diarrhea over the last 2 days. He denies any signs of blood. He does admit that he was in a rehab for severely time due to cellulitis was on antibiotics about a month ago. patient does admit to feeling dizzy lightheaded. This feels unsteady on his feet even laying here in the stretcher states still feeling dizzy. Denies any other complaints or symptoms at this time. Patient denies any recent fever, chills, shortness of breath, chest pain, abdominal pain, nausea or vomiting, numbness or tingling, dysuria or hematuria, constipation, headaches or visual changes, or any other complaints. - Related Data Home Medications Medication Instructions Recorded Confirmed Aspirin EC [Ecotrin Low Dose] 81 mg PO DAILY 02/13/16 10/11/16 Gabapentin [Neurontin] 300 mg PO HS 02/13/16 10/11/16 Pravastatin Sodium [Pravachol] 20 mg PO HS 07/26/16 10/11/16 Ranitidine HCl 300 mg PO HS 07/26/16 10/11/16 Brimonidine Tartrate [Alphagan P 1 drop OPHTHALMIC BID 07/27/16 10/11/16 0.2% Ophth Soln] Carvedilol [Coreg] 3.125 tab PO BID 07/27/16 10/11/16 Dorzolamide HCl [Trusopt 2%] 1 drop OPHTHALMIC BID 07/27/16 10/11/16 Tamsulosin HCl [Flomax] 0.4 cap PO DAILY 07/27/16 10/11/16 Timolol [Betimol 0.5% Ophth Soln] 1 drop OPHTHALMIC BID 07/27/16 10/11/16 Albuterol Inhaler [Ventolin Hfa 2 puff INHALATION RT-Q6H PRN 10/11/16 10/11/16 Inhaler] Fluticasone Nasal [place] [Flonase 2 spr EA NOSTRIL DAILY 10/11/16 10/11/16 Nasal [place]] Lisinopril [Zestril] 10 mg PO DAILY 10/11/16 10/11/16 Multivitamins, Thera [Multivitamin 1 tab PO DAILY@1200 10/11/16 10/11/16 (formulary)] Allergies Allergy/AdvReac Type Severity Reaction Status Date / Time iodine Allergy Unknown Verified 10/11/16 18:54 Review of Systems ROS Statement: Those systems with pertinent positive or pertinent negative responses have been documented in the HPI. ROS Other: All systems not noted in ROS Statement are negative. Past Medical History Past Medical History: Atrial Fibrillation, Asthma, Chest Pain / Angina, CVA/TIA , GERD/Reflux, Hypertension, Osteoarthritis (OA), Pneumonia, Prostate Disorder, Renal Disease Additional Past Medical History / Comment(s): Glaucoma; CVAx2;Chronic back pain History of Any Multi-Drug Resistant Organisms: None Reported Past Surgical History: Back Surgery, Joint Replacement Additional Past Surgical History / Comment(s): Left knee surgery, lower lumbar surgery Past Psychological History: No Psychological Hx Reported Smoking Status: Never smoker Past Alcohol Use History: Occasional Additional Past Alcohol Use History / Comment(s): Pt states he drinks 2-3 shots 3 days a week. Denies smoking or any other drugs. Past Drug Use History: None Reported General Exam - General Exam Comments Initial Comments: General: The patient is awake and alert, in no distress, and does not appear acutely ill. Eye: Pupils are equal, round and reactive to light, extra-ocular movements are intact. No nystagmus. There is normal conjunctiva bilaterally. No signs of icterus. Ears, nose, mouth and throat: There are moist mucous membranes and no oral lesions. Neck: The neck is supple, there is no tenderness or JVD. Cardiovascular: There is a regular rate and rhythm. No murmur, rub or gallop is appreciated. Respiratory: Lungs are clear to auscultation, respirations are non-labored, breath sounds are equal. No wheezes, stridor, rales, or rhonchi. Gastrointestinal: Soft, non-distended, non-tender abdomen without masses or organomegaly noted. There is no rebound or guarding present. No CVA tenderness. Bowel sounds are unremarkable. Musculoskeletal: Normal ROM. normal appearance of the cervical, thoracic, lumbar spine. No step-offs forms appreciated. patient does have some old surgical incision in the lower lumbar. No bony tenderness over the midline of the thoracic or lumbar spine. Mild tenderness paravertebrally to the right side. No tenderness of cervical spine shows full range of motion. Strength 5/ 5. Sensation intact. Pulses equal bilaterally 2+. Neurological: A&O x 3. CN II-XII intact, There are no obvious motor or sensory deficits. Coordination appears grossly intact. Speech is normal. Skin: Skin is warm and dry and no rashes or lesions are noted. Psychiatric: Cooperative, appropriate mood & affect, normal judgment. Limitations: no limitations Course Vital Signs 10/11/16 10/11/16 10/11/16 17:10 17:54 19:00 Temperature 98.1 F Pulse Rate 100 82 Pulse Rate [ 88 Sitting Fabrication Engineer] Pulse Rate [ 75 Standing Fabrication Engineer ] Pulse Rate [ 87 Supine Fabrication Engineer] Respiratory 16 20 Rate Blood Pressure 90/54 107/63 Blood Pressure 82/55 [Sitting] Blood Pressure 82/55 [Standing] Blood Pressure 94/61 [Supine] O2 Sat by Pulse 100 96 Oximetry EKG Findings - EKG Comments: EKG Findings:: EKG performed at 1710: Shows a sinus rhythm with occasional PVC at 88 bpm. MD interval 176. QRS 126. QT/QTc 400/484. Shows evidence for right bundle branch block. Compared to previous EKG on 07/26/2016 and shows no acute changes. Medical Decision Making - Medical Decision Making Patient reexamined at this time shows no signs of distress resting comfortably. Blood pressure has improved after liter bolus here in the emergency room. Blood pressure currently 113/73. Patient's labs been reviewed does show mildly elevated BUN/creatinine. Does show elevated blood glucose. Patient is no history of diabetes. Patient does admit to symptoms of diarrhea the past 2 days. Unable to obtain stool sample here in the emergency room but he does admit that he was on antibiotics recently for sinusitis infection. Case discussed with attending physician Dr. Santos and we will admit the patient for further hydration. - Lab Data Result diagrams: 10/11/16 17:35 10/11/16 17:35 Lab Results 10/11/16 10/11/16 10/11/16 Range/Units 17:35 17:35 17:35 WBC 4.0 (3.8-10.6) k/uL RBC 4.02 L (4.30-5.90) m/uL Hgb 13.1 (13.0-17.5) gm/dL Hct 40.9 (39.0-53.0) % MCV 101.6 H (80.0-100.0) fL MCH 32.5 (25.0-35.0) pg MCHC 32.0 (31.0-37.0) g/dL RDW 13.7 (11.5-15.5) % Plt Count 164 (150-450) k/uL Neutrophils % 68 % Lymphocytes % 21 % Monocytes % 6 % Eosinophils % 1 % Basophils % 1 % Neutrophils # 2.7 (1.3-7.7) k/uL Lymphocytes # 0.8 L (1.0-4.8) k/uL Monocytes # 0.3 (0-1.0) k/uL Eosinophils # 0.1 (0-0.7) k/uL Basophils # 0.0 (0-0.2) k/uL Macrocytosis Slight PT (9.0-12.0) sec INR (<1.1) APTT (22.0-30.0) sec Sodium 142 (137-145) mmol/L Potassium 3.9 (3.5-5.1) mmol/L Chloride 107 (98-107) mmol/L Carbon Dioxide 15 L (22-30) mmol/L Anion Gap 20 mmol/L BUN 24 H (9-20) mg/dL Creatinine 2.02 H (0.66-1.25) mg/dL Est GFR (MDRD) Af Amer 39 (>60 ml/min/1.73 sqM) Est GFR (MDRD) Non-Af 32 (>60 ml/min/1.73 sqM) Glucose 212 H (74-99) mg/dL Calcium 9.1 (8.4-10.2) mg/dL Total Bilirubin 2.7 H (0.2-1.3) mg/dL AST 64 H (17-59) U/L ALT 39 (21-72) U/L Alkaline Phosphatase 84 (38-126) U/L Total Creatine Kinase 234 H (55-170) U/L CK-MB (CK-2) 3.3 H* (0.0-2.4) ng/mL CK-MB (CK-2) Rel Index 1.4 Troponin I 0.025 (0.000-0.034) ng/mL Total Protein 7.3 (6.3-8.2) g/dL Albumin 4.0 (3.5-5.0) g/dL 10/11/16 Range/Units 17:35 WBC (3.8-10.6) k/uL RBC (4.30-5.90) m/uL Hgb (13.0-17.5) gm/dL Hct (39.0-53.0) % MCV (80.0-100.0) fL MCH (25.0-35.0) pg MCHC (31.0-37.0) g/dL RDW (11.5-15.5) % Plt Count (150-450) k/uL Neutrophils % % Lymphocytes % % Monocytes % % Eosinophils % % Basophils % % Neutrophils # (1.3-7.7) k/uL Lymphocytes # (1.0-4.8) k/uL Monocytes # (0-1.0) k/uL Eosinophils # (0-0.7) k/uL Basophils # (0-0.2) k/uL Macrocytosis PT 11.8 (9.0-12.0) sec INR 1.2 (<1.1) APTT 30.4 H (22.0-30.0) sec Sodium (137-145) mmol/L Potassium (3.5-5.1) mmol/L Chloride (98-107) mmol/L Carbon Dioxide (22-30) mmol/L Anion Gap mmol/L BUN (9-20) mg/dL Creatinine (0.66-1.25) mg/dL Est GFR (MDRD) Af Amer (>60 ml/min/1.73 sqM) Est GFR (MDRD) Non-Af (>60 ml/min/1.73 sqM) Glucose (74-99) mg/dL Calcium (8.4-10.2) mg/dL Total Bilirubin (0.2-1.3) mg/dL AST (17-59) U/L ALT (21-72) U/L Alkaline Phosphatase (38-126) U/L Total Creatine Kinase (55-170) U/L CK-MB (CK-2) (0.0-2.4) ng/mL CK-MB (CK-2) Rel Index Troponin I (0.000-0.034) ng/mL Total Protein (6.3-8.2) g/dL Albumin (3.5-5.0) g/dL Disposition Clinical Impression: Syncope, Dehydration, Acute diarrhea, Acute renal injury Disposition: ADMITTED IP TO THIS HOSP Condition: Stable Referrals: Bebe King MD [Primary Care Provider] - 1-2 days Time of Disposition: 19:51
[2016-10-11 17:46] LABS: Basophils % (A) 1 %; CH 33.3; CHCM 32.9; Eosinophils # (A) 0.1 k/uL (0-0.7); Eosinophils % (A) 1 %; HCT 40.9 % (39.0-53.0); HDW 2.11; HGB 13.1 gm/dL (13.0-17.5); Luc # (Auto) 0.11; Luc % (Auto) 3; Lymphocytes # (A) 0.8 k/uL (1.0-4.8); Lymphocytes % (A) 21 %; MCH 32.5 pg (25.0-35.0); MCV 101.6 fL (80.0-100.0); Macrocytosis Slight; Mean Platelet Volume 7.1; Monocytes # (A) 0.3 k/uL (0-1.0); Monocytes % (A) 6 %; Neutrophils # (A) 2.7 k/uL (1.3-7.7); Neutrophils % (A) 68 %; RBC 4.02 m/uL (4.30-5.90); RDW 13.7 % (11.5-15.5); WBC (Perox) 4.05
[2016-10-11 17:56] LABS: INR 1.2 (<1.1); Partial Thromboplastin Time 30.4 sec (22.0-30.0); Prothrombin Time 11.8 sec (9.0-12.0)
[2016-10-11 17:58] LABS: Calcium 9.1 mg/dL (8.4-10.2); Potassium 3.9 mmol/L (3.5-5.1); Total Bilirubin 2.7 mg/dL (0.2-1.3); Total Protein 7.3 g/dL (6.3-8.2)
--- NOTE | 2016-10-11 18:25 | CT ---
EXAMINATION TYPE: CT brain kalen valdez DATE OF EXAM: 10/11/2016 COMPARISON: Head CT scan 07/26/2016 HISTORY: Fall injury today. CT DLP: 1329.1 mGycm Automated exposure control for dose reduction was used. TECHNIQUE: CT scan of the head and cervical spine are performed without contrast. FINDINGS: There is mild cerebral cortical atrophy. There is no mass effect nor midline shift. There is no sign of intracranial hemorrhage. The calvarium is intact. There is cervical kyphotic curvature with almost 5 mm anterior subluxation of C4 in relation to C5. T here is hypertrophic multilevel facet arthropathy. There is moderate degenerative disc space narrowin g from C4 to T1 with spurring. I see no compression fracture. The skull base is intact. IMPRESSION: Cerebral atrophy. No acute intracranial abnormality. No change compared to old exam. Moderate multilevel spondylosis with kyphotic curvature. 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 No fracture.
[2016-10-11 18:26] LABS: Troponin I 0.025 ng/mL (0.000-0.034)
--- NOTE | 2016-10-11 18:26 | XR ---
EXAMINATION TYPE: XR chest 2V DATE OF EXAM: 10/11/2016 COMPARISON: 02/13/2016 HISTORY: Fall. Chest pain TECHNIQUE: Frontal and lateral views of the chest are obtained. FINDINGS: Heart size is normal. Lungs are clear. There is no pleural effusion. Thoracic aorta is ath eromatous. Bony thorax is intact. There are chest leads. IMPRESSION: No active cardiopulmonary disease. No change. Normal heart.
--- NOTE | 2016-10-11 18:28 | XR ---
EXAMINATION TYPE: XR lumbar spine 2 or 3V DATE OF EXAM: 10/11/2016 COMPARISON: 07/26/2016 HISTORY: Back pain TECHNIQUE: 3 views FINDINGS: Inferior vena cava filter is noted. Vertebra have normal alignment. There is narrowing at L 3-4 disc with vacuum disc and sclerotic change on both sides of the disc space. There is narrowing at L5-S1 disc space. I see no compression fracture. Sacroiliac joints are intact. There is L5 laminect mariela. IMPRESSION: Spondylotic changes as above. No acute bony abnormality. No change.
[2016-10-11 18:32] LABS: Creatine Kinase MB 3.3 ng/mL (0.0-2.4)
[2016-10-11] MEDS ORDERED: SODIUM CHLORIDE 0.9% 1,000 ML IV ONE (19:53)
[2016-10-11] MEDS ORDERED: NALOXONE 0.4 MG/ML 1 ML VIAL IV PRN (19:53)
[2016-10-11] MEDS ORDERED: ACETAMINOPHEN TAB 325 MG TAB PO PRN (19:53)
[2016-10-11] MEDS ORDERED: ONDANSETRON 4 MG/2 ML VIAL IVP PRN (19:53)
[2016-10-11 22:38] VITALS: BMI 25.1
[2016-10-11] MEDS ORDERED: ALBUTEROL NEBULIZED 2.5 MG/3 ML INHALATION PRN (22:39)
[2016-10-11] MEDS ORDERED: TEMAZEPAM 15 MG CAP PO PRN (22:39)
[2016-10-11] MEDS ORDERED: GABAPENTIN 300 MG CAP PO STA (23:04)
[2016-10-11] MEDS: SODIUM CHLORIDE 0.9% 1,000 ML IV SCH (23:43)
[2016-10-12] MEDS ORDERED: LORazepam 2 MG/ML SYRINGE IV STA (03:11)
[2016-10-12] MEDS ORDERED: LORazepam 2 MG/ML SYRINGE IV PRN ×2 (03:13)
[2016-10-12 06:02] LABS: Appearance,Urine Clear (Clear); Bilirubin,Urine Negative (Negative); Glucose,Urine (UA) Negative (Negative); Ketones,Urine Trace (Negative); Leukocyte Esterase,Urine Negative (Negative); Nitrite,Urine Negative (Negative); PH, Urine 5.5 (5.0-8.0); Protein,Urine Trace (Negative); Specific Gravity,Urine 1.017 (1.001-1.035); UA Billing (MACRO vs. MICRO) CHEM
[2016-10-12] MEDS: ALPRAZolam 0.25 MG TAB PO PRN ×2 (06:15→17:00)
[2016-10-12 08:11] LABS: Basophils % (A) 1 %; CH 33.4; CHCM 32.9; Eosinophils # (A) 0.1 k/uL (0-0.7); Eosinophils % (A) 1 %; HCT 37.3 % (39.0-53.0); HDW 2.06; HGB 11.8 gm/dL (13.0-17.5); Luc % (Auto) 2; Lymphocytes # (A) 0.9 k/uL (1.0-4.8); Lymphocytes % (A) 18 %; MCH 32.2 pg (25.0-35.0); MCHC 31.7 g/dL (31.0-37.0); MCV 101.8 fL (80.0-100.0); Macrocytosis Slight; Mean Platelet Volume 7.2; Monocytes # (A) 0.4 k/uL (0-1.0); Monocytes % (A) 7 %; Neutrophils # (A) 3.5 k/uL (1.3-7.7); Neutrophils % (A) 71 %; RBC 3.66 m/uL (4.30-5.90); RDW 13.9 % (11.5-15.5); WBC (Perox) 4.91
[2016-10-12 08:31] LABS: ALT 40 U/L (21-72); AST 56 U/L (17-59); Alkaline Phosphatase 83 U/L (38-126); Anion Gap 11 mmol/L; Blood Urea Nitrogen 22 mg/dL (9-20); Calcium 8.7 mg/dL (8.4-10.2); Carbon Dioxide 22 mmol/L (22-30); Chloride 110 mmol/L (98-107); Glucose 92 mg/dL (74-99); Non-African American GFR(MDRD) 59 (>60 ml/min/1.73 sqM); Potassium 4.1 mmol/L (3.5-5.1); Sodium 143 mmol/L (137-145); Total Bilirubin 3.4 mg/dL (0.2-1.3); Total Protein 6.5 g/dL (6.3-8.2)
[2016-10-12] MEDS: CARVEDILOL 3.125 MG TAB PO SCH ×2 (09:45→20:34)
[2016-10-12] MEDS: MULTIVITAMINS, THERA 1 EACH TAB PO SCH (09:45)
[2016-10-12] MEDS: ASPIRIN 81 MG CHEW PO SCH (09:45)
[2016-10-12] MEDS: TIMOLOL 0.5% OPHTH DROPS 5 ML BTL BOTH EYES SCH ×2 (09:46→20:35)
[2016-10-12] MEDS: PANTOPRAZOLE 40 MG TABLET PO SCH (09:46)
[2016-10-12] MEDS: FLUTICASONE 50MCG/SPRAY NASAL 16GM EA NOSTRIL SCH (09:46)
[2016-10-12] MEDS: TAMSULOSIN 0.4 MG CAP.ER.24H PO SCH (09:46)
--- NOTE | 2016-10-12 10:56 | ECHOF ---
Referral Reason:Stroke MEASUREMENTS -------- HEIGHT: 157.5 cm WEIGHT: 81.6 kg BP: 124/84 RVIDd: 2.6 cm (< 3.3) IVSd: 1.3 cm (0.6 - 1.1) LVIDd: 4.7 cm (3.9 - 5.3) LVPWd: 1.2 cm (0.6 - 1.1) IVSs: 1.7 cm LVIDs: 2.9 cm LVPWs: 1.5 cm LA Diam: 2.9 cm (2.7 - 3.8) Ao Diam: 3.4 cm (2.0 - 3.7) AV Cusp: 2.1 cm (1.5 - 2.6) LA Diam: 4.2 cm (2.7 - 3.8) MV EXCURSION: 16.659 mm (> 18.000) MV EF SLOPE: 56 mm/s (70 - 150) EPSS: 1.0 cm MV E [place]: 0.45 m/s MV DecT: 189 ms MV A [place]: 0.54 m/s MV E/A Ratio: 0.84 RAP: 5.00 mmHg RVSP: 22.60 mmHg FINDINGS -------- Sinus rhythm. This was a technically adequate study. There is mild concentric left ventricular hypertrophy. Overall left ventricular systolic function is low-normal with, an EF between 50 - 55 %. The right ventricle is normal in size. The left atrial size is normal. The right atrial size is normal. There is mild aortic valve sclerosis. There is no evidence of aortic regurgitation. Mild mitral annular calcification present. Mild mitral regurgitation is present. Mild tricuspid regurgitation present. There is no evidence of pulmonary hypertension. The right ventricular systolic pressure, as measured by Doppler, is 22.60mmHg. There is no pulmonic regurgitation present. The aortic root size is normal. There is no pericardial effusion. CONCLUSIONS -------- 1. There is mild concentric left ventricular hypertrophy. 2. The aortic root size is normal. 3. There is no pericardial effusion. 4. Overall left ventricular systolic function is low-normal with, an EF between 50 - 55 %. 5. There is mild aortic valve sclerosis. 6. Mild mitral annular calcification present. 7. Mild mitral regurgitation is present. 8. Mild tricuspid regurgitation present. 9. There is no evidence of pulmonary hypertension. 10. The right ventricular systolic pressure, as measured by Doppler, is 22.60mmHg. 11. There is no pulmonic regurgitation present. JIG BORER: Lynda Samuels RDCS
--- NOTE | 2016-10-12 11:06 | US ---
EXAMINATION TYPE: US carotid duplex BILAT DATE OF EXAM: 10/12/2016 COMPARISON: NONE CLINICAL HISTORY: stroke. EXAM MEASUREMENTS: RIGHT: Peak Systolic Velocity (PSV) cm/sec ----- Right CCA: 65.3 ----- Right ICA: 77.6 ----- Right ECA: 91.8 ICA/CCA ratio: 1.2 RIGHT: End Diastole cm/sec ----- Right CCA: 13.9 ----- Right ICA: 20.0 ----- Right ECA: 10.2 LEFT: Peak Systolic Velocity (PSV) cm/sec ----- Left CCA: 71.3 ----- Left ICA: 44.1 ----- Left ECA: 52.6 ICA/CCA ratio: 0.6 LEFT: End Diastole cm/sec ----- Left CCA: 13.1 ----- Left ICA: 14.9 ----- Left ECA: 5.6 VERTEBRALS (direction of flow): Right Vertebral: Antegrade Left Vertebral: Antegrade No significant stenosis seen IMPRESSION: I DO NOT SEE EVIDENCE OF A HEMODYNAMICALLY SIGNIFICANT STENOSIS IN EITHER CAROTID SYSTEM. Criteria for Assigning % of Stenosis / Diameter reduction (Estimation based on the indirect measurements of the internal carotid artery velocities (ICA PSV). 1. Normal (no stenosis)=ICA PSV < 125 cm/s: ratio < 2.0: ICA EDV<40 cm/s. 2. Less than 50% stenosis=ICA PSV < 125 cm/s: ratio < 2.0: ICA EDV<40 cm/s. 3. 50 to 69% stenosis=ICA PSV of 125 to 230 cm/s: ration 2.0 ? 4.0: ICA EDV 40-100 cm/s. 4. Greater than 70% stenosis to near occlusion= ICA PSV > 230 cm/s: ratio > 4.0: ICA EDV > 100 cm/s. 5. Near occlusion= ICA PSV velocities may be low or undetectable: variable ratio and ICA EDV. 6. Total occlusion=unable to detect flow.
[2016-10-12] MEDS: SODIUM CHLORIDE 0.9% 1,000 ML IV SCH ×2 (13:56→17:01)
--- NOTE | 2016-10-12 14:21 | HP ---
DATE OF ADMISSION: The chief complaints are fall and renal failure and diarrhea. HISTORY OF PRESENT ILLNESS: This is a 76-year-old gentleman with a past medical history of multiple medical problems, including history of atrial ablation, asthma, CVA, TIA, GERD, hypertension, DJD, history of pneumonia, history of glaucoma, history of back surgery, being followed by Dr. King in the outpatient setting was having some diarrhea. The patient was taking some antibiotics for cellulitis of the left hand recently. The diarrhea was multiple occasions and patient was in the bathroom today on the toilet and the patient apparently had a syncopal episode and the patient came to [facility] and admitted for further evaluation. Patient is complaining of some back pain at this time. There is no history of any fever, rigors or chills. No history of hematochezia or melena. No history of chest pain or palpation at this time. The patient also had renal failure with a creatinine of 2.02. The previous creatinine values are 1.3 which went up to 3.63 previously and subsequently normalized. PAST MEDICAL HISTORY: History of atrial fibrillation, asthma, history of CVA x2, TIA, GERD, hypertension, DJD,, history of pneumonia, prostate disorder, history of glaucoma, back surgery, hyperlipidemia. Medications prior to admission, home medications are: 1. Ranitidine 300 mg q.h.s. 2. Pravachol 20 mg q.h.s. 3. Neurontin 300 mg q.h.s. 4. Multivitamin 1 p.o. daily. 5. Zestril 10 mg daily. 6. Flonase 2 sprays daily. 7. Ventolin HFA 2 puffs q.6 p.r.n. 8. Betimol 0.5% ophthalmic solution 1 drop b.i.d. 9. Flomax 0.4 daily. 10. Trusopt 2% 1 drop b.i.d. 11. Coreg 3.125 mg p.o. b.i.d. 12. Alphagan 0.2% 1 drop b.i.d. 13. Ecotrin 81 mg daily. Allergies are IODINE. FAMILY HISTORY: No history of heart disease or strokes in the family. SOCIAL HISTORY: No history of smoking. Occasional alcohol intake. No history of substance abuse. REVIEW OF SYSTEMS: ENT: Diminishing hearing. Diminished vision. CARDIOVASCULAR SYSTEM: No angina or palpitations. RESPIRATORY: No cough. GI: As mentioned earlier. : As mentioned earlier. ALLERGY/IMMUNOLOGY: As measured earlier. HEMATOLOGY/ONCOLOGY: No history of anemia. ENDOCRINE: No history of diabetes, hypothyroidism. CONSTITUTIONAL: As mentioned earlier. DERMATOLOGY: Negative. RHEUMATOLOGY: Negative. PSYCHIATRY: As mentioned earlier. PHYSICAL EXAM: The patient is alert and oriented x3. Pulse 80, blood pressure 130/76, respirations 20, temperature 98.1, pulse 96% on 2 L. HEENT: Conjunctivae normal, oral mucosa dry. NECK: No jugular venous distension, no carotid bruit. CARDIOVASCULAR SYSTEM: S1, S1, muffled, no S3, no S4. RESPIRATORY: Breath sounds diminished at the bases. A few rhonchi, no crackles. ABDOMEN: Soft, nontender, minimal distention. No mass palpable. No guarding. No rigidity. Bowel sounds present. No ascites. No hepatosplenomegaly. LEGS: No edema. No swelling. NERVOUS SYSTEM: Higher function as mentioned earlier, moves all 4 limbs, no focal motor deficits. SKIN: No ulcer, rash or bleeding. LABS: WBC is 4, hemoglobin 13, MCV 101.6, APTT 30.4, creatinine is 2.02, glucose 212, total bilirubin is 2.7. AST 64 and creatinine kinase 234. ASSESSMENT: 1. Acute renal failure, possibly prerenal, acute tubular necrosis secondary to dehydration. 2. Syncope, possibly vasovagal syncope secondary to dehydration. 3. Diarrhea, rule out acute Clostridium difficile colitis. 4. History of recent cellulitis, on antibiotic. 5. Increased MCV. 6. Decreased CO2. 7. Increased random blood sugar, possible diabetes mellitus type 2. 8. Increased bilirubin and increased AST; possible hepatitis of undetermined etiology. 9. Increased creatinine kinase. 10. History of atrial fibrillation, chronic, intermittent. 11. History of asthma, chronic, intermittent. 12. History of chest pain and angina. 13. History of cerebrovascular accident, transient ischemic. 14. History of gastroesophageal reflux disease. 15. History of hypertension. 16. History of degenerative joint disease. 17. History of pneumonia. 18. History of glaucoma. 19. History of cerebrovascular accident x2. 20. History of chronic back pain, degenerative joint disease. 21. FULL CODE. RECOMMENDATION: In this 76-year-old gentleman who presented with the multiple complex medical issues, will monitor the patient closely, continue with the medications and symptomatic treatment. Recommend IV fluids and I would also recommend orthostatic vitals, otherwise, guarded prognosis because of the complex medical issues. Further recommendations to follow. A copy of this will be forwarded to Dr. King who is the primary physician.
[2016-10-12] MEDS: HYDROcodone/APAP 5-325MG 1 EACH TAB PO PRN (18:30)
[2016-10-12] MEDS: PRAVASTATIN SODIUM 20 MG TAB PO SCH (20:34)
[2016-10-12] MEDS: GABAPENTIN 300 MG CAP PO SCH (20:34)
[2016-10-12] MEDS: HYDROmorphone 1 MG/ML 1 ML SYRINGE IVP PRN (20:35)
--- NOTE | 2016-10-12 21:38 | PN ---
DATE OF SERVICE: 10/12/2016 This 76-year-old gentleman who was admitted with acute renal failure is being closely monitored at this time. The patient has syncope and diarrhea and). No fever. No cough. On exam, alert and oriented times three. Pulse is 78, blood pressure 130/84, respiratory rate 16, temperature 98.4. Pulse ox 97% on room air. HEENT: Conjunctivae normal. NECK: No jugular venous distention. CARDIOVASCULAR: S1, S2 muffled. RESPIRATORY: Breath sounds diminished at the bases. No rhonchi, no crackles. ABDOMEN: Soft. Nontender. LEGS: No edema. No swelling. CENTRAL NERVOUS SYSTEM: No focal deficits. LABS: WBCntd, hemoglobin 11.8. MCV . Creatinine is 1.20. ASSESSMENT: 1. Acute renal failure, possible prerenal, acute tubular necrosis secondary to dehydration. 2. Syncope, possible vasovagal syncope secondary to dehydration. 3. Diarrhea rule out acute Clostridium difficile colitis. 4. History of recent cellulitis and antibiotic. 5. Increased MCV. 6. Decreased CO2. 7. Increased random blood sugar, possibly diabetes mellitus type 2. 8. Increased bilirubin. 9. Increased AST. 10. Possibly hepatitis of undetermined etiology. 11. Increased creatinine kinase. 12. Atrial fibrillation, chronic, intermittent. 13. History of asthma, chronic intermittent. 14. History of chest pain, angina. 15. History of cerebrovascular accident, transient ischemic attack. 16. History of gastroesophageal reflux disease. 17. History of hypertension. 18. History of degenerative joint disease. 19. History of pneumonia. 20. History of glaucoma. 21. History of cerebrovascular accident x2. 22. History of chronic back pain and degenerative joint disease. 23. FULL CODE. RECOMMENDATIONS AND DISCUSSION: Recommend to continue current medications. Continue with monitoring, symptomatic treatment. Otherwise, at this time, I recommend to continue with the current medications, monitor creatinine closely. Increase ambulation. Otherwise, continue to monitor. Further recommendations to follow. MTDD
[2016-10-13] MEDS: HYDROcodone/APAP 5-325MG 1 EACH TAB PO PRN ×3 (01:00→11:50)
[2016-10-13] MEDS: HYDROmorphone 1 MG/ML 1 ML SYRINGE IVP PRN (04:15)
[2016-10-13] MEDS: LORazepam 2 MG/ML SYRINGE IV PRN ×2 (05:28→09:11)
[2016-10-13] MEDS: PANTOPRAZOLE 40 MG TABLET PO SCH (07:18)
[2016-10-13 07:23] LABS: Basophils % (A) 0 %; CH 32.8; CHCM 31.9; Eosinophils # (A) 0.1 k/uL (0-0.7); Eosinophils % (A) 2 %; HCT 39.4 % (39.0-53.0); HDW 2.05; HGB 12.7 gm/dL (13.0-17.5); Luc % (Auto) 2; Lymphocytes # (A) 0.8 k/uL (1.0-4.8); Lymphocytes % (A) 13 %; MCH 33.3 pg (25.0-35.0); MCHC 32.2 g/dL (31.0-37.0); MCV 103.2 fL (80.0-100.0); Macrocytosis Slight; Mean Platelet Volume 6.7; Monocytes # (A) 0.4 k/uL (0-1.0); Monocytes % (A) 6 %; Neutrophils # (A) 4.8 k/uL (1.3-7.7); Neutrophils % (A) 76 %; RBC 3.82 m/uL (4.30-5.90); RDW 13.6 % (11.5-15.5); WBC 6.3 k/uL (3.8-10.6); WBC (Perox) 6.27
[2016-10-13 07:40] LABS: ALT 33 U/L (21-72); AST 46 U/L (17-59); Alkaline Phosphatase 89 U/L (38-126); Anion Gap 11 mmol/L; Blood Urea Nitrogen 12 mg/dL (9-20); Calcium 8.9 mg/dL (8.4-10.2); Carbon Dioxide 22 mmol/L (22-30); Chloride 105 mmol/L (98-107); Glucose 133 mg/dL (74-99); Non-African American GFR(MDRD) >60 (>60 ml/min/1.73 sqM); Potassium 3.4 mmol/L (3.5-5.1); Sodium 138 mmol/L (137-145); Total Bilirubin 3.2 mg/dL (0.2-1.3); Total Protein 7.1 g/dL (6.3-8.2)
[2016-10-13] MEDS: TAMSULOSIN 0.4 MG CAP.ER.24H PO SCH (08:29)
[2016-10-13] MEDS: TIMOLOL 0.5% OPHTH DROPS 5 ML BTL BOTH EYES SCH ×2 (08:29→20:50)
[2016-10-13] MEDS: FLUTICASONE 50MCG/SPRAY NASAL 16GM EA NOSTRIL SCH (08:29)
[2016-10-13] MEDS: CARVEDILOL 3.125 MG TAB PO SCH ×2 (08:29→20:50)
[2016-10-13] MEDS: ASPIRIN 81 MG CHEW PO SCH (08:29)
[2016-10-13] MEDS: MULTIVITAMINS, THERA 1 EACH TAB PO SCH (11:51)
[2016-10-13] MEDS: GABAPENTIN 300 MG CAP PO SCH (20:50)
[2016-10-13] MEDS: PRAVASTATIN SODIUM 20 MG TAB PO SCH (20:50)
[2016-10-14] MEDS: SODIUM CHLORIDE 0.9% 1,000 ML IV SCH ×2 (03:09→05:53)
[2016-10-14 07:24] LABS: Basophils % (A) 0 %; CH 33.5; CHCM 33.7; Eosinophils # (A) 0.1 k/uL (0-0.7); Eosinophils % (A) 1 %; HCT 39.9 % (39.0-53.0); HGB 13.3 gm/dL (13.0-17.5); Luc # (Auto) 0.14; Luc % (Auto) 2; Lymphocytes # (A) 1.1 k/uL (1.0-4.8); Lymphocytes % (A) 14 %; MCH 33.1 pg (25.0-35.0); MCHC 33.2 g/dL (31.0-37.0); MCV 99.7 fL (80.0-100.0); Mean Platelet Volume 7.4; Monocytes # (A) 0.6 k/uL (0-1.0); Monocytes % (A) 8 %; Neutrophils # (A) 5.7 k/uL (1.3-7.7); Neutrophils % (A) 74 %; RDW 13.7 % (11.5-15.5); WBC 7.7 k/uL (3.8-10.6); WBC (Perox) 7.56
[2016-10-14 07:36] LABS: ALT 43 U/L (21-72); AST 33 U/L (17-59); Alkaline Phosphatase 85 U/L (38-126); Anion Gap 10 mmol/L; Blood Urea Nitrogen 7 mg/dL (9-20); Calcium 9.2 mg/dL (8.4-10.2); Carbon Dioxide 26 mmol/L (22-30); Chloride 104 mmol/L (98-107); Glucose 109 mg/dL (74-99); Non-African American GFR(MDRD) >60 (>60 ml/min/1.73 sqM); Sodium 140 mmol/L (137-145); Total Bilirubin 2.4 mg/dL (0.2-1.3)
--- NOTE | 2016-10-14 08:46 | PN ---
DATE OF SERVICE: 10/13/2016 This 76-year-old gentleman admitted with acute renal failure also had some confusion. The patient had syncope. The patient also had diarrhea, which is improving at this time. The patient had a CT scan of the brain earlier, which showed cerebral atrophy, multiple was also noted. The patient also had gait dysfunction also. PAST MEDICAL HISTORY: Reviewed. Review of systems could not be taken. The patient is confused. CURRENT MEDICATIONS: 1. Tylenol 650 q.6 p.r.n. 2. Russell 5 mg. 3. Xanax 0.25 t.i.d. 4. Aspirin. 5. Coreg 3.125 mg. 7. Neurontin. 8. Dilaudid. 9. Ativan. 10. Multivitamin. 11. Narcan. 12. Zofran. 13. Protonix. 14. Flomax. 15. Zestril. 16. Timoptic. PHYSICAL EXAMINATION: Patient is alert and oriented x1. Pulse 74, blood pressure 150/91, respirations 18, temperature 98.2, pulse ox 94% on room air. HEENT: Conjunctivae normal. NECK: No jugular venous distention. CARDIOVASCULAR: S1 and S2, muffled. RESPIRATORY: Breath sounds diminished at the bases. A few scattered rhonchi. No crackles. ABDOMEN: Soft, nontender. Minimal diffuse distention. No guarding, no rigidity. No mass palpable. LEGS: No edema, no swelling. NERVOUS SYSTEM: Higher function as mentioned. Moves all four limbs. No focal motor deficits. LYMPHATIC: No lymphadenopathy in the neck, axillae or groin. SKIN: No ulcer, rash or bleeding. Labs at this time show WBC 6.3, hemoglobin 12.7, sodium 130, potassium 3.4. ASSESSMENT: 1. Acute renal failure, possible prerenal from acute tubular necrosis secondary to dehydration, present on admission. 2. Change in mental status, metabolic encephalopathy, multifactorial. 3. Syncope, possibly vasovagal secondary to dehydration, present on admission. 4. Diarrhea, possibly nonspecific gastroenteritis. Clostridium difficile negative. 5. History of recent cellulitis and on antibiotics. 6. Increased MCV. 7. Decreased CO2. 8. Increased random blood sugar, possibly diabetes type 2. 9. Increased bilirubin. 10. Increased AST. 11. Possibly hepatitis of undetermined etiology. 12. Increased creatine kinase. 13. History of atrial fibrillation, chronic, intermittent. 14. History of asthma, chronic, intermittent. 15. History chest pain, angina. 16. History of cerebrovascular accident, transient ischemic attack. 17. History of gastroesophageal reflux disease. 18. History of hypertension, essential. 19. History of degenerative joint disease. 20. History of pneumonia. 21. History of glaucoma. 22. History of cerebrovascular accident x2. 23. Gait dysfunction. 24. History of chronic back pain, degenerative joint disease. 25. FULL CODE. RECOMMENDATIONS AND DISCUSSION: I recommend to continue current medications, continue symptomatic treatment, repeat labs. Otherwise I recommend PT, OT evaluation, possibly ECF rehab. Continue the rest of the medications. Prognosis is extremely guarded because of multiple complex medical issues as detailed above. See orders for further details. MTDD
[2016-10-14] MEDS: PANTOPRAZOLE 40 MG TABLET PO SCH (08:52)
[2016-10-14] MEDS: ASPIRIN 81 MG CHEW PO SCH (08:52)
[2016-10-14] MEDS: TAMSULOSIN 0.4 MG CAP.ER.24H PO SCH (08:52)
[2016-10-14] MEDS: CARVEDILOL 3.125 MG TAB PO SCH ×2 (08:52→21:08)
[2016-10-14] MEDS: FLUTICASONE 50MCG/SPRAY NASAL 16GM EA NOSTRIL SCH (08:53)
[2016-10-14] MEDS: TIMOLOL 0.5% OPHTH DROPS 5 ML BTL BOTH EYES SCH ×2 (08:53→21:08)
[2016-10-14] MEDS: HYDROcodone/APAP 5-325MG 1 EACH TAB PO PRN ×2 (09:12→16:55)
[2016-10-14] MEDS: HYDROmorphone 1 MG/ML 1 ML SYRINGE IVP PRN (13:02)
[2016-10-14] MEDS: 0.9% NACL WITH KCL 40 MEQ/L 1,000 ML IV SCH (13:04)
[2016-10-14] MEDS: POTASSIUM CHLORIDE 20 MEQ, LIDOCAINE 2% INJ 20 MG in SODIUM CHLORIDE 0.9% 100 ML IVPB SCH ×2 (13:04→15:48)
[2016-10-14] MEDS: POTASSIUM CHLORIDE ER 20 MEQ TAB.ER PO SCH ×2 (13:05→14:22)
[2016-10-14] MEDS: MULTIVITAMINS, THERA 1 EACH TAB PO SCH (13:05)
[2016-10-14] MEDS: PRAVASTATIN SODIUM 20 MG TAB PO SCH (21:08)
[2016-10-14] MEDS: GABAPENTIN 300 MG CAP PO SCH (21:08)
[2016-10-15] MEDS: HYDROcodone/APAP 5-325MG 1 EACH TAB PO PRN ×3 (02:50→20:36)
[2016-10-15 08:12] LABS: ALT 35 U/L (21-72); AST 26 U/L (17-59); Alkaline Phosphatase 74 U/L (38-126); Anion Gap 9 mmol/L; Blood Urea Nitrogen 9 mg/dL (9-20); Calcium 8.9 mg/dL (8.4-10.2); Carbon Dioxide 24 mmol/L (22-30); Chloride 108 mmol/L (98-107); Glucose 110 mg/dL (74-99); Non-African American GFR(MDRD) >60 (>60 ml/min/1.73 sqM); Potassium 4.1 mmol/L (3.5-5.1); Sodium 141 mmol/L (137-145); Total Bilirubin 1.9 mg/dL (0.2-1.3); Total Protein 6.9 g/dL (6.3-8.2)
[2016-10-15 08:15] LABS: Basophils % (A) 0 %; CH 33.4; Eosinophils # (A) 0.1 k/uL (0-0.7); Eosinophils % (A) 2 %; HCT 36.7 % (39.0-53.0); HDW 2.17; HGB 12.6 gm/dL (13.0-17.5); Luc # (Auto) 0.29; Luc % (Auto) 4; Lymphocytes # (A) 1.2 k/uL (1.0-4.8); Lymphocytes % (A) 16 %; MCH 33.7 pg (25.0-35.0); MCHC 34.2 g/dL (31.0-37.0); MCV 98.6 fL (80.0-100.0); Mean Platelet Volume 7.2; Monocytes # (A) 0.6 k/uL (0-1.0); Monocytes % (A) 8 %; Neutrophils # (A) 5.2 k/uL (1.3-7.7); Neutrophils % (A) 70 %; RBC 3.72 m/uL (4.30-5.90); RDW 13.4 % (11.5-15.5); WBC 7.4 k/uL (3.8-10.6)
[2016-10-15] MEDS: TAMSULOSIN 0.4 MG CAP.ER.24H PO SCH (09:09)
[2016-10-15] MEDS: ASPIRIN 81 MG CHEW PO SCH (09:11)
[2016-10-15] MEDS: 0.9% NACL WITH KCL 40 MEQ/L 1,000 ML IV SCH ×2 (09:12→17:40)
[2016-10-15] MEDS: FLUTICASONE 50MCG/SPRAY NASAL 16GM EA NOSTRIL SCH (09:12)
[2016-10-15] MEDS: TIMOLOL 0.5% OPHTH DROPS 5 ML BTL BOTH EYES SCH ×2 (09:12→20:32)
[2016-10-15] MEDS: PANTOPRAZOLE 40 MG TABLET PO SCH (09:12)
--- NOTE | 2016-10-15 09:30 | PN ---
DATE OF SERVICE: 10/14/2016 This 76-year-old gentleman who was admitted with acute renal failure and mental status changes is being closely monitored. The patient has syncope as well as diffuse dysfunctional also. No chest pain or palpitations. No fever. On exam, alert and oriented x2. Pulse is 91, blood pressure 113/51, respirations 17, pulse ox 98% on room air. HEENT: Conjunctivae normal. NECK: Supple. CARDIOVASCULAR: S1 and S2 muffled. LUNGS: Breath sounds diminished at the bases. Scattered rhonchi. No crackles. ABDOMEN: Soft, nontender. EXTREMITIES: No edema. LABS: Hemoglobin WBC 7.3, hemoglobin 13, sodium 142, potassium 3. ASSESSMENT: 1. Acute renal failure with possible renal failure from acute tubular necrosis secondary to dehydration, present on admission. 2. Change in mental status, metabolic encephalopathy, multifactorial. 3. Syncope, possibly vasovagal, secondary to dehydration, present on admission. 4. Diarrhea, possibly nonspecific gastroenteritis, C-difficile negative. 5. History of recent cellulitis, on antibiotics. 6. Increased MCV. 7. Decreased CO2. 8. Increased random blood sugar, possible diabetes mellitus type 2. 9. Increased bilirubin. 10. Increased AST. 11. Possible hepatitis of undetermined etiology. 12. Increased creatinine kinase. 13. History of chronic and intermittent. 14. History of asthma, chronic and intermittent. 15. History of chest pain/angina. 16. History of cerebrovascular accident, transient ischemic attack. 17. History of gastroesophageal reflux disease. 18. Hypertension, essential. 19. History of degenerative joint disease. 20. History of pneumonia. 21. History of glaucoma. 22. History of cerebrovascular accident x2. 23. History of gait dysfunction. 24. Chronic back pain, degenerative joint disease. 25. FULL CODE. RECOMMENDATIONS AND DISCUSSION: I recommended to continue with monitoring, continue with symptomatic treatment. Otherwise, supplement potassium. See orders for further details. Guarded prognosis. Repeat potassium. Guarded prognosis because of multiple complex medical issues. Further recommendations to follow. MTDD
[2016-10-15] MEDS: CARVEDILOL 3.125 MG TAB PO SCH ×2 (10:12→20:32)
[2016-10-15] MEDS: MULTIVITAMINS, THERA 1 EACH TAB PO SCH (13:19)
--- NOTE | 2016-10-15 20:16 | PN ---
DATE OF SERVICE: 10/15/2016 This 76 -year-old gentleman was admitted with acute renal failure also had change in mental status. The patient also had gait dysfunction. PT/OT evaluated the patient. Possible ECF rehab. No chest pain. No palpitations. No fever. On exam, alert and oriented times two. Pulse 70. Blood pressure 149/91. Respiratory rate 16. Temperature 98.2. Pulse ox 97% on room air. HEENT: Conjunctivae normal. NECK: No jugular venous distention. CARDIOVASCULAR: S1, S2 muffled. RESPIRATORY: Breath sounds diminished at the bases. A few scattered rhonchi. No crackles. ABDOMEN: Soft, nontender. LEGS: No edema. No swelling. CENTRAL NERVOUS SYSTEM: No focal deficits. LABS: WBC 7.2, hemoglobin is 12.6, platelets 102, potassium is 4.1. Other labs are noted. Total bili 1.9. ASSESSMENT: 1. Acute renal failure from acute tubular necrosis secondary to dehydration, present on admission. 2. Change in mental status, metabolic encephalopathy acute multifactorial. 3. Syncope, possible vasovagal secondary to dehydration, present on admission. 4. Diarrhea, possibly nonspecific gastroenteritis, Clostridium difficile negative, improved. 5. History of recent cellulitis, was on antibiotic. 6. Increased MCV. 7. Decreased CO2. 8. Increased random blood sugar, possibly diabetes mellitus type 2. 9. Increased bilirubin. 10. Increased AST. 11. Possible hepatitis of undetermined etiology. 12. Increased creatinine kinase. 13. History of chronic intermittent asthma. 14. History of chest pain and angina. 15. History of cerebrovascular accident, transient ischemic attack. 16. History of gastroesophageal reflux disease. 17. Hypertension, essential. 18. History of degenerative joint disease. 19. History of pneumonia. 20. History of glaucoma. 21. Cerebrovascular incident times two. 22. History of gait dysfunction. 23. Chronic back pain. Degenerative joint disease . 24. FULL CODE. RECOMMENDATIONS AND DISCUSSION: Recommend to continue current medications. Continue with monitoring. Symptomatic treatment. Otherwise, at this time I would recommend current medications. I will also check a hemoglobin A1c. Otherwise, PT, OT evaluation. Possible ECF rehab. See orders for further recommendations. MTDD
[2016-10-15] MEDS: GABAPENTIN 300 MG CAP PO SCH (20:32)
[2016-10-15] MEDS: PRAVASTATIN SODIUM 20 MG TAB PO SCH (20:32)
[2016-10-15 22:07] LABS: Hemoglobin A1C 5.6 % (4.2-6.1)
[2016-10-16] MEDS: 0.9% NACL WITH KCL 40 MEQ/L 1,000 ML IV SCH ×2 (05:11→17:53)
[2016-10-16] MEDS: TIMOLOL 0.5% OPHTH DROPS 5 ML BTL BOTH EYES SCH ×2 (08:28→21:11)
[2016-10-16] MEDS: CARVEDILOL 3.125 MG TAB PO SCH ×2 (08:28→21:11)
[2016-10-16] MEDS: FLUTICASONE 50MCG/SPRAY NASAL 16GM EA NOSTRIL SCH (08:28)
[2016-10-16] MEDS: ASPIRIN 81 MG CHEW PO SCH (08:28)
[2016-10-16] MEDS: PANTOPRAZOLE 40 MG TABLET PO SCH (08:28)
[2016-10-16] MEDS: TAMSULOSIN 0.4 MG CAP.ER.24H PO SCH (08:28)
[2016-10-16 09:12] LABS: ALT 24 U/L (21-72); AST 37 U/L (17-59); Alkaline Phosphatase 66 U/L (38-126); Anion Gap 10 mmol/L; Blood Urea Nitrogen 11 mg/dL (9-20); Calcium 9.1 mg/dL (8.4-10.2); Carbon Dioxide 19 mmol/L (22-30); Chloride 110 mmol/L (98-107); Glucose 102 mg/dL (74-99); Non-African American GFR(MDRD) >60 (>60 ml/min/1.73 sqM); Sodium 139 mmol/L (137-145); Total Bilirubin 1.4 mg/dL (0.2-1.3); Total Protein 7.1 g/dL (6.3-8.2)
[2016-10-16 09:21] LABS: Potassium 4.7 mmol/L (3.5-5.1)
[2016-10-16] MEDS: MULTIVITAMINS, THERA 1 EACH TAB PO SCH (13:33)
[2016-10-16] MEDS ORDERED: traMADol 50 MG TAB PO PRN (14:01)
--- NOTE | 2016-10-16 14:35 | XR ---
EXAMINATION TYPE: XR wrist complete LT DATE OF EXAM: 10/16/2016 COMPARISON: NONE HISTORY: Pain TECHNIQUE: Four views submitted. FINDINGS: Slight irregularity of the scaphoid bone would recommend either CT scan or bone scan for further eval uation. Corticated bony density or calcification posterior and dorsal to the wrist is chronic. IMPRESSION: 1. No definite acute fracture. There is slight irregularity of the waist of the scaphoid. Cannot excl ude a subtle fracture recommend correlation with CT scan.
--- NOTE | 2016-10-16 14:38 | XR ---
EXAMINATION TYPE: XR hand complete LT DATE OF EXAM: 10/16/2016 COMPARISON: NONE HISTORY: Pain TECHNIQUE: Three views are submitted. FINDINGS: Soft tissue ossification dorsum of the wrist appears chronic. Narrowing the first carpal metacarpal j oint noted. Slight irregularity involving the waist of the scaphoid. IMPRESSION: 1. Question slight irregularity involving the waist of the scaphoid. Recommend follow-up CT scan.
--- NOTE | 2016-10-16 15:37 | P.DS ---
Providers Date of admission: 10/13/16 11:10 Expected date of discharge: 10/16/16 Attending physician: Joyce Mix Primary care physician: Fernando Segal at [facility] Hospital Course: 1. Acute renal failure secondary to dehydration, prerenal azotemia, improved. 2. [ Change in mental status, acute metabolic encephalopathy, multifactorial including dehydration, renal failure]. 3. [ Dehydration secondary to diarrhea, possibly nonspecific gastroenteritis. Negative for C. difficile colitis. Improved]. 4. [ Dehydration with Syncope, possibly vasovagal, sustaining fall from toilet seat]. 5. [ Elevated T bili and elevated LFTs secondary to gastroparesis, dehydration, renal failure improved with IV fluid hydration]. possible hepatitis of unclear etiology 6. [ chronic intermittent asthma 7. [ CVA, TIA, history of]. 8. Gastroesophageal reflux disease 9. Essential hypertension 10. Degenerative joint disease with gait dysfunction, chronic back pain 11. Glaucoma Hospital course: This is a 76-year-old gentleman admitted with acute renal failure, dehydration, diarrhea, change in mental status, gait dysfunction, syncope and multiple other medical issues. Apparently patient fell from his toilet in his bathroom, brought into the ER per EMS. Neuro workup completed. CT of head cervical and spine reported no acute intracranial abnormality, cerebral atrophy, unchanged from prior exam with moderate multilevel spondylolithiasis with kyphotic curvature, degenerative first-degree C4-5 spondylolithiasis, no fracture. Lumbar CT reported no acute bony abnormality, no change, no compression fracture. Carotid echo reported no evidence of hemodynamically significant stenosis in either carotid system. 2-D echo reported EF 50-55%. Elevated T bili and LFTs on admission. Received IV fluid hydration, nephrotoxic medications discontinued. Significant clinical improvement. On the morning of discharge patient complaining of new left hand pain that extends into his wrist, supine side.CT of hand and wrist suggestive of irregularity involving the waist of the scaphoid, possible subtle fracture, computed tomography scan pending. If CT positive for fracture, ortho will be consulted for casting and then be discharged to [facility] rehab in a stable condition with guarded prognosis. The impression and plan of care has been dictated as directed as a scribe. : I performed a H&P examination of this patient and discussed the same with the dictator. I agree with the dictator's note. Any additional findings/opinions/ etc. will be noted. Patient Condition at Discharge: Stable Plan - Discharge Summary New Discharge Prescriptions: New Albuterol Nebulized [Ventolin Nebulized] 2.5 mg INHALATION RT-Q6H neb ALPRAZolam [Xanax] 0.25 mg PO TID PRN #20 tab PRN Reason: Anxiety HYDROcodone/APAP 5-325MG [[place] 5-325] 1 each PO Q6HR PRN #20 tab PRN Reason: Pain traMADol HCl [Ultram] 50 mg PO QID PRN #20 tab PRN Reason: Pain Continue Gabapentin [Neurontin] 300 mg PO HS Aspirin EC [Ecotrin Low Dose] 81 mg PO DAILY Ranitidine HCl 300 mg PO HS Pravastatin Sodium [Pravachol] 20 mg PO HS Timolol [Betimol 0.5% Ophth Soln] 1 drop OPHTHALMIC BID Tamsulosin HCl [Flomax] 0.4 cap PO DAILY Dorzolamide HCl [Trusopt 2%] 1 drop OPHTHALMIC BID Carvedilol [Coreg] 3.125 tab PO BID Brimonidine Tartrate [Alphagan P 0.2% Ophth Soln] 1 drop OPHTHALMIC BID Multivitamins, Thera [Multivitamin (formulary)] 1 tab PO DAILY@1200 Fluticasone Nasal [place] [Flonase Nasal [place]] 2 spr EA NOSTRIL DAILY Discontinued Lisinopril [Zestril] 10 mg PO DAILY Albuterol Inhaler [Ventolin Hfa Inhaler] 2 puff INHALATION RT-Q6H PRN PRN Reason: Shortness Of Breath Discharge Medication List Aspirin EC [Ecotrin Low Dose] 81 mg PO DAILY 02/13/16 [History] Gabapentin [Neurontin] 300 mg PO HS 02/13/16 [History] Pravastatin Sodium [Pravachol] 20 mg PO HS 07/26/16 [History] Ranitidine HCl 300 mg PO HS 07/26/16 [History] Brimonidine Tartrate [[place]phagan P 0.2% Ophth Soln] 1 drop OPHTHALMIC BID [History] Carvedilol [Coreg] 3.125 tab PO BID 07/27/16 [History] Dorzolamide HCl [Trusopt 2%] 1 drop OPHTHALMIC BID 07/27/16 [History] Tamsulosin HCl [Flomax] 0.4 cap PO DAILY 07/27/16 [History] Timolol [Betimol 0.5% Ophth Soln] 1 drop OPHTHALMIC BID 07/27/16 [History] Fluticasone Nasal [place] [Flonase Nasal [place]] 2 spr EA NOSTRIL DAILY 10/11/16 [ History] Multivitamins, Thera [Multivitamin (formulary)] 1 tab PO DAILY@1200 10/11/16 [ History] ALPRAZolam [Xanax] 0.25 mg PO TID PRN #20 tab 10/15/16 [Rx] Albuterol Nebulized [Ventolin Nebulized] 2.5 mg INHALATION RT-Q6H neb 10/15/16 [Rx] HYDROcodone/APAP 5-325MG [[place] 5-325] 1 each PO Q6HR PRN #20 tab 10/15/16 [Rx] traMADol HCl [Ultram] 50 mg PO QID PRN #20 tab 10/16/16 [Rx] Follow up Appointment(s)/Referral(s): Bebe King MD [Primary Care Provider] - 1 Week (after dc from [facility]) Jaret Segal DO [STAFF PHYSICIAN] - 3 Days (While at [facility]) Ambulatory/Diagnostic Orders: Complete Blood Count w/diff [LAB.AMB] Location: Determined By Patient Activity/Diet/Wound Care/Special Instructions: [facility] diet cardiac act limited till f/u CBC,BMP in 3 days Discharge Disposition: TRANSFER TO [facility]
[2016-10-16 16:17] LABS: Basophils % (A) 0 %; CH 33.2; CHCM 31.6; Eosinophils # (A) 0.1 k/uL (0-0.7); Eosinophils % (A) 2 %; HCT 40.7 % (39.0-53.0); HDW 2.01; HGB 13.1 gm/dL (13.0-17.5); Luc # (Auto) 0.25; Luc % (Auto) 4; Lymphocytes % (A) 16 %; MCHC 32.2 g/dL (31.0-37.0); Macrocytosis Moderate; Mean Platelet Volume 7.3; Monocytes # (A) 0.8 k/uL (0-1.0); Monocytes % (A) 13 %; Neutrophils # (A) 4.1 k/uL (1.3-7.7); Neutrophils % (A) 65 %; RBC 3.85 m/uL (4.30-5.90); RDW 13.6 % (11.5-15.5); WBC 6.3 k/uL (3.8-10.6); WBC (Perox) 6.36
[2016-10-16 16:18] LABS: MCV 105.5 fL (80.0-100.0)
[2016-10-16 16:31] LABS: Anion Gap 8 mmol/L; Blood Urea Nitrogen 12 mg/dL (9-20); Calcium 9.2 mg/dL (8.4-10.2); Carbon Dioxide 26 mmol/L (22-30); Chloride 104 mmol/L (98-107); Creatine Kinase 103 U/L (55-170); Glucose 108 mg/dL (74-99); Non-African American GFR(MDRD) >60 (>60 ml/min/1.73 sqM); Sodium 138 mmol/L (137-145)
--- NOTE | 2016-10-16 17:40 | US ---
EXAMINATION TYPE: US venous doppler duplex UE LT DATE OF EXAM: 10/16/2016 COMPARISON: NONE CLINICAL HISTORY: PAIN. Left wrist pain. SIDE PERFORMED: LEFT Left Arm: Negative for DVT and SVT. There is patency of the subclavian brachial jugular axillary vein. IMPRESSION: Negative exam. No evidence of deep venous thrombosis in the left arm.
--- NOTE | 2016-10-16 18:10 | P.PN ---
Subjective Date of service 10/16/2016. Progress note being dictated for . Interval history:This is a 76-year-old gentleman admitted with acute renal failure, dehydration, diarrhea, change in mental status, gait dysfunction, syncope and multiple other medical issues. Apparently patient fell from his toilet in his bathroom, brought into the ER per EMS. Neuro workup completed. CT of head cervical and spine reported no acute intracranial abnormality, cerebral atrophy, unchanged from prior exam with moderate multilevel spondylolithiasis with kyphotic curvature, degenerative first-degree C4-5 spondylolithiasis, no fracture. Lumbar CT reported no acute bony abnormality, no change, no compression fracture. Carotid echo reported no evidence of hemodynamically significant stenosis in either carotid system. 2-D echo reported EF 50-55%. Elevated T bili and LFTs on admission. Received IV fluid hydration, nephrotoxic medications discontinued. Significant clinical improvement. Patient complaining of new left hand pain that extends into his wrist, supine side.CT of hand and wrist suggestive of irregularity involving the waist of the scaphoid, possible subtle fracture, computed tomography scan pending. Ultrasound pending. Objective - Vital Signs Vital signs: Vital Signs Temp 98.5 F 10/16/16 14:34 Pulse 73 10/16/16 16:00 Resp 16 10/16/16 16:00 BP 116/82 10/16/16 14:34 Pulse Ox 99 10/16/16 14:34 Intake & Output 10/15/16 10/16/16 10/16/16 18:59 06:59 18:59 Intake Total 740 2869 Output Total 2 400 878 Balance 738 2469 -878 Intake: Intake, IV Titration 200 2389 Amount 0.9% NaCl with KCl 40 Meq 200 2389 /l 1,000 ml @ 75 mls/hr IV .[id number] DONATO Rx#: [id number] Oral 540 480 Output: Urine 400 875 Stool 2 3 Other: Voiding Method Toilet Toilet Toilet Urinal Urinal Urinal # Voids 2 2 1 # Bowel Movements 1 1 - Exam PHYSICAL EXAM: VITAL SIGNS: As above GENERAL: [Sitting up in bed, no acute] HEENT: [Pupils equal conjunctiva normal.] NECK: [Supple, no JVD] RESPIRATORY EFFORT:[ Normal] LUNGS: [Diminished, no wheezes rhonchi or crackles] CARDIOVASCULAR[ regular S1 and S2, no murmurs rubs or gallops, no edema] GI: [Abdomen soft, nontender, positive bowel sounds.] PSYCH: [Alert and oriented -2-3, mood and affect normal.] NEURO: [No focal deficits] - Labs CBC & Chem 7: 10/16/16 15:50 10/16/16 15:50 Labs: Abnormal Lab Results - Last 24 Hours (Table) 10/16/16 10/16/16 10/16/16 Range/Units 08:10 15:50 15:50 RBC 3.85 L (4.30-5.90) m/uL MCV 105.5 H D (80.0-100.0) fL Plt Count 126 L (150-450) k/uL Chloride 110 H (98-107) mmol/L Carbon Dioxide 19 L (22-30) mmol/L Glucose 102 H 108 H (74-99) mg/dL Total Bilirubin 1.4 H (0.2-1.3) mg/dL Assessment and Plan Plan: 1. Acute renal failure secondary to dehydration, prerenal azotemia, improved. 2. [ Change in mental status, acute metabolic encephalopathy, multifactorial including dehydration, renal failure]. 3. [ Dehydration secondary to diarrhea, possibly nonspecific gastroenteritis. Negative for C. difficile colitis. Improved]. 4. [ Dehydration with Syncope, possibly vasovagal, sustaining fall from toilet seat]. 5. [ Elevated T bili and elevated LFTs secondary to gastroparesis, dehydration, renal failure improved with IV fluid hydration]. possible hepatitis of unclear etiology 6. [ chronic intermittent asthma 7. [ CVA, TIA, history of]. 8. Gastroesophageal reflux disease 9. Essential hypertension 10. Degenerative joint disease with gait dysfunction, chronic back pain 11. Glaucoma 12. Ongoing alcohol abuse, sister states patient has been in rehab 3 separate times. New significant other and patient resumed drinking daily. Plan: Continue on current medication regime ,monitoring and symptomatic treatment. Awaiting final ultrasound and CT results, If CT positive for fracture, ortho will be consulted for casting and then be discharged to [facility] rehab in a stable condition with guarded prognosis. Alcohol cessation readdressed. Low potassium diet, potassium 5.0. The impression and plan of care has been dictated as directed. : Edward performed a H&P examination of this patient and discussed the same with the dictator. I agree with the dictator's note. Any additional findings/opinions/ etc. will be noted.
--- NOTE | 2016-10-16 18:29 | CT ---
EXAMINATION TYPE: CT upper extremity LT wo con with 3-D reconstructions DATE OF EXAM: 10/16/2016 COMPARISON: NONE HISTORY: Left hand and wrist pain x 5-6 days, no known injury. TECHNIQUE: Departmental protocol. Automated exposure control for dose reduction was used. Multiple 3- D reconstruction volume renderings were obtained in an independent workstation. CT DLP: 322.00 mGycm. FINDINGS: Axial, sagittal, and coronal sequences were reviewed with both bone reconstruction algorit hm and soft tissue reconstruction algorithm. The bones and joints and soft tissues are unremarkable, except for scattered degenerative joint carvalho es. There are no bony erosions. The mineralization is normal. There is no fracture or malalignment. T here is no soft tissue swelling. IMPRESSION: NO ACUTE PROCESS.
[2016-10-16] MEDS: HYDROcodone/APAP 5-325MG 1 EACH TAB PO PRN (19:31)
[2016-10-16] MEDS: PRAVASTATIN SODIUM 20 MG TAB PO SCH (21:11)
[2016-10-16] MEDS: GABAPENTIN 300 MG CAP PO SCH (21:11)
[2016-10-17] MEDS: 0.9% NACL WITH KCL 40 MEQ/L 1,000 ML IV SCH (07:19)
[2016-10-17] MEDS: HYDROcodone/APAP 5-325MG 1 EACH TAB PO PRN (07:27)
[2016-10-17] MEDS: TAMSULOSIN 0.4 MG CAP.ER.24H PO SCH (07:28)
[2016-10-17] MEDS: FLUTICASONE 50MCG/SPRAY NASAL 16GM EA NOSTRIL SCH (07:28)
[2016-10-17] MEDS: CARVEDILOL 3.125 MG TAB PO SCH (07:29)
[2016-10-17] MEDS: PANTOPRAZOLE 40 MG TABLET PO SCH (07:29)
[2016-10-17] MEDS: TIMOLOL 0.5% OPHTH DROPS 5 ML BTL BOTH EYES SCH (07:29)
[2016-10-17] MEDS: ASPIRIN 81 MG CHEW PO SCH (07:29)
[2016-10-17 08:02] VITALS: BP 139/85; RESP 16; TEMP 98.2
[2016-10-17 08:30] VITALS: PULSE 87
== END 2016-10-17 11:50 | disposition home health service (06) | DRG 682 ==
LOC: EC 17:04 → 5MS5E 20:40 → OBSVTOIN 10-13 11:10
PROVIDERS: ADMIT Hospitalist; ATTEND Hospitalist
DX: N17.0 Acute kidney failure with tubular necrosis (principal); G93.41 Metabolic encephalopathy; E86.0 Dehydration; I48.2 Chronic atrial fibrillation; K31.84 Gastroparesis; K75.9 Inflammatory liver disease, unspecified; E78.5 Hyperlipidemia, unspecified; G89.29 Other chronic pain; I10 Essential (primary) hypertension; H40.9 Unspecified glaucoma; J45.20 Mild intermittent asthma, uncomplicated; K21.9 Gastro-esophageal reflux disease without esophagitis; M19.90 Unspecified osteoarthritis, unspecified site; W18.11XA Fall from or off toilet without subsequent striking against object, initial encounter; Z79.899 Other long term (current) drug therapy; Z86.73 Personal history of transient ischemic attack (TIA), and cerebral infarction without residual deficits; Z87.01 Personal history of pneumonia (recurrent); Z79.82 Long term (current) use of aspirin; Z88.3 Allergy status to other anti-infective agents; K52.9 Noninfective gastroenteritis and colitis, unspecified
CPT/HCPCS: 36415; 70450; 71020; 72100; 72125; 80048; 80053; 80306; 81003; 82550; 82553; 83036; 84484; 84550; 85025; 85610; 85730; 87324; 93005; 93306; 93880; 96360; 96361; 96376; 99285

== ENCOUNTER 2016-12-10 18:54 | Inpatient (IN) | payer MEDICARE, OTHER ==
[2016-12-10] MEDS ORDERED: SODIUM CHLORIDE 0.9% 1,000 ML IV STA (19:17)
--- NOTE | 2016-12-10 20:09 | ED ---
Alcohol HPI - General Chief Complaint: Alcohol Stated Complaint: ETOH Time Seen by Provider: 12/10/16 19:10 Source: EMS, RN notes reviewed, old records reviewed Mode of arrival: EMS Limitations: no limitations - History of Present Illness Initial Comments: This is a 76-year-old male presenting to the emergency department after being found in the [place] behind the person's house. Patient was brought via EMS. He reports that he has some abdominal pain, and that has been hurting for the past hour.. Patient is disoriented will not say significant medical history. He is not alert and oriented to time and place. He was found with a woman's pills that he was with. It is unknown of what he may also taken.Per medical record patient has a history of CVA, dehydration, glaucoma. - Related Data Home Medications Medication Instructions Recorded Confirmed Aspirin EC [Ecotrin Low Dose] 81 mg PO DAILY 02/13/16 10/11/16 Gabapentin [Neurontin] 300 mg PO HS 02/13/16 10/11/16 Pravastatin Sodium [Pravachol] 20 mg PO HS 07/26/16 10/11/16 Ranitidine HCl 300 mg PO HS 07/26/16 10/11/16 Brimonidine Tartrate [Alphagan P 1 drop OPHTHALMIC BID 07/27/16 10/11/16 0.2% Ophth Soln] Carvedilol [Coreg] 3.125 tab PO BID 07/27/16 10/11/16 Dorzolamide HCl [Trusopt 2%] 1 drop OPHTHALMIC BID 07/27/16 10/11/16 Tamsulosin HCl [Flomax] 0.4 cap PO DAILY 07/27/16 10/11/16 Timolol [Betimol 0.5% Ophth Soln] 1 drop OPHTHALMIC BID 07/27/16 10/11/16 Fluticasone Nasal [place] [Flonase 2 spr EA NOSTRIL DAILY 10/11/16 10/11/16 Nasal [place]] Multivitamins, Thera [Multivitamin 1 tab PO DAILY@1200 10/11/16 10/11/16 (formulary)] Previous Rx's Medication Instructions Recorded ALPRAZolam [Xanax] 0.25 mg PO TID PRN #20 tab 10/15/16 Albuterol Nebulized [Ventolin 2.5 mg INHALATION RT-Q6H neb 10/15/16 Nebulized] HYDROcodone/APAP 5-325MG [[place] 1 each PO Q6HR PRN #20 tab 10/15/16 5-325] traMADol HCl [Ultram] 50 mg PO QID PRN #20 tab 10/16/16 methylPREDNISolone Dose Pack 4 mg PO DIRECTED #21 package 10/17/16 [Medrol Dose Pack] Allergies Allergy/AdvReac Type Severity Reaction Status Date / Time iodine Allergy Unknown Verified 12/10/16 19:01 Review of Systems ROS Statement: Those systems with pertinent positive or pertinent negative responses have been documented in the HPI. ROS Other: All systems not noted in ROS Statement are negative. Past Medical History Past Medical History: Atrial Fibrillation, Asthma, Chest Pain / Angina, CVA/TIA , GERD/Reflux, Hypertension, Osteoarthritis (OA), Pneumonia, Prostate Disorder, Renal Disease Additional Past Medical History / Comment(s): Glaucoma; CVAx2;Chronic back pain History of Any Multi-Drug Resistant Organisms: None Reported Past Surgical History: Back Surgery, Joint Replacement, Prostate Surgery Additional Past Surgical History / Comment(s): Left knee surgery, lower lumbar surgery Past Anesthesia/Blood Transfusion Reactions: No Reported Reaction Past Psychological History: No Psychological Hx Reported Smoking Status: Never smoker Past Alcohol Use History: Occasional Past Drug Use History: None Reported - Past Family History Father Family Medical History: Cancer Additional Family Medical History / Comment(s): colon cancer Mother Family Medical History: Myocardial Infarction ([place]) Brother(s) Family Medical History: Myocardial Infarction ([place]) General Exam - General Exam Comments Initial Comments: Physical is a 76-year-old male. Patient is disoriented and appears intoxicated. There are leaves and dirt all around the patient's clothes Limitations: no limitations General appearance: lethargic, obtunded Head exam: Present: atraumatic, normocephalic, normal inspection Eye exam: Present: normal appearance, PERRL, EOMI. Absent: scleral icterus, conjunctival injection, periorbital swelling ENT exam: Present: normal exam, mucous membranes moist Neck exam: Present: normal inspection. Absent: tenderness, meningismus, lymphadenopathy Respiratory exam: Present: normal lung sounds bilaterally. Absent: respiratory distress, wheezes, rales, rhonchi, stridor Cardiovascular Exam: Present: regular rate, normal rhythm, normal heart sounds. Absent: systolic murmur, diastolic murmur, rubs, gallop, clicks GI/Abdominal exam: Present: soft, tenderness (Patient has tenderness over the left upper quadrant. Patient has multiple scars over the abdomen. He will not discuss his surgical history.), normal bowel sounds. Absent: distended, guarding, rebound, rigid Extremities exam: Present: normal inspection, full ROM, normal capillary refill. Absent: tenderness, pedal edema, joint swelling, calf tenderness Back exam: Present: normal inspection Neurological exam: Present: alert, oriented X3, CN II-XII intact Psychiatric exam: Present: normal affect, normal mood Skin exam: Present: warm, dry, intact, normal color. Absent: rash Course Vital Signs 12/10/16 12/10/16 12/10/16 18:55 21:35 22:55 Temperature 97.4 F L 97.8 F Pulse Rate 72 62 69 Respiratory 12 18 18 Rate Blood Pressure 133/75 128/77 124/71 O2 Sat by Pulse 99 97 98 Oximetry Medical Decision Making - Medical Decision Making This is a 76-year-old male presenting to the emergency department after being found in the [place] behind the person's house. Patient was brought via EMS. He reports that he has some abdominal pain, and that has been hurting for the past hour.. Patient is disoriented will not say significant medical history. Patient's lab work was reviewed. There was a significant increase of BUN and creatinine is consistent with acute renal injury. Patient had to receive 0.4 mg of Narcan IV. He was sent still unarousable. Patient then received 1 g of Narcan and is now alert and oriented and responsive. Patient alcohol level was undetected. Patient urine drug screen did test positive for cocaine and opiates. Patient will be admitted for altered mental status and acute renal failure. Discussed case with Dr. Graham. CT brain was negative for any acute process. Chest x-ray and KUB x-ray were also reviewed to be normal. - Lab Data Result diagrams: 12/10/16 20:00 12/10/16 20:00 Lab Results 12/10/16 12/10/16 12/10/16 Range/Units 20:00 20:00 20:00 WBC 7.2 (3.8-10.6) k/uL RBC 4.40 (4.30-5.90) m/uL Hgb 14.5 (13.0-17.5) gm/dL Hct 44.5 (39.0-53.0) % MCV 101.0 H (80.0-100.0) fL MCH 33.1 (25.0-35.0) pg MCHC 32.7 (31.0-37.0) g/dL RDW 15.7 H (11.5-15.5) % Plt Count 137 L (150-450) k/uL Neutrophils % 86 % Lymphocytes % 7 % Monocytes % 5 % Eosinophils % 1 % Basophils % 0 % Neutrophils # 6.2 (1.3-7.7) k/uL Lymphocytes # 0.5 L (1.0-4.8) k/uL Monocytes # 0.3 (0-1.0) k/uL Eosinophils # 0.1 (0-0.7) k/uL Basophils # 0.0 (0-0.2) k/uL Macrocytosis Slight PT 10.3 (9.0-12.0) sec INR 1.0 (<1.2) Sodium 144 (137-145) mmol/L Potassium 4.0 (3.5-5.1) mmol/L Chloride 108 H (98-107) mmol/L Carbon Dioxide 19 L (22-30) mmol/L Anion Gap 17 mmol/L BUN 50 H (9-20) mg/dL Creatinine 3.65 H (0.66-1.25) mg/dL Est GFR (MDRD) Af Amer 20 (>60 ml/min/1.73 sqM) Est GFR (MDRD) Non-Af 16 (>60 ml/min/1.73 sqM) Glucose 102 H (74-99) mg/dL Plasma Lactic Acid Mario (0.7-2.0) mmol/L Calcium 10.0 (8.4-10.2) mg/dL Phosphorus 3.7 (2.5-4.5) mg/dL Magnesium 1.9 (1.6-2.3) mg/dL Total Bilirubin 2.4 H (0.2-1.3) mg/dL AST 381 H (17-59) U/L ALT 129 H (21-72) U/L Alkaline Phosphatase 131 H (38-126) U/L Total Protein 8.7 H (6.3-8.2) g/dL Albumin 4.6 (3.5-5.0) g/dL Amylase 99 (30-110) U/L Lipase 104 (23-300) U/L Urine Color Urine Appearance (Clear) Urine pH (5.0-8.0) Ur Specific [place] (1.001-1.035) Urine Protein (Negative) Urine Glucose (UA) (Negative) Urine Ketones (Negative) Urine Blood (Negative) Urine Nitrite (Negative) Urine Bilirubin (Negative) Urine Urobilinogen (<2.0) mg/dL Ur Leukocyte Esterase (Negative) Urine RBC (0-5) /hpf Urine WBC (0-5) /hpf Hyaline Casts (0-2) /lpf Urine Mucus (None) /hpf Salicylates mg/dL Urine Opiates Screen (NotDetected) Ur Oxycodone Screen (NotDetected) Urine Methadone Screen (NotDetected) Ur Propoxyphene Screen (NotDetected) Acetaminophen ug/mL Ur Barbiturates Screen (NotDetected) U Tricyclic Antidepress (NotDetected) Ur Phencyclidine Scrn (NotDetected) Ur Amphetamines Screen (NotDetected) U Methamphetamines Scrn (NotDetected) U Benzodiazepines Scrn (NotDetected) Urine Cocaine Screen (NotDetected) U Marijuana (THC) Screen (NotDetected) Serum Alcohol <10 mg/dL 12/10/16 12/10/16 12/10/16 Range/Units 20:00 21:21 21:49 WBC (3.8-10.6) k/uL RBC (4.30-5.90) m/uL Hgb (13.0-17.5) gm/dL Hct (39.0-53.0) % MCV (80.0-100.0) fL MCH (25.0-35.0) pg MCHC (31.0-37.0) g/dL RDW (11.5-15.5) % Plt Count (150-450) k/uL Neutrophils % % Lymphocytes % % Monocytes % % Eosinophils % % Basophils % % Neutrophils # (1.3-7.7) k/uL Lymphocytes # (1.0-4.8) k/uL Monocytes # (0-1.0) k/uL Eosinophils # (0-0.7) k/uL Basophils # (0-0.2) k/uL Macrocytosis PT (9.0-12.0) sec INR (<1.2) Sodium (137-145) mmol/L Potassium (3.5-5.1) mmol/L Chloride (98-107) mmol/L Carbon Dioxide (22-30) mmol/L Anion Gap mmol/L BUN (9-20) mg/dL Creatinine (0.66-1.25) mg/dL Est GFR (MDRD) Af Amer (>60 ml/min/1.73 sqM) Est GFR (MDRD) Non-Af (>60 ml/min/1.73 sqM) Glucose (74-99) mg/dL Plasma Lactic Acid Mario 1.8 (0.7-2.0) mmol/L Calcium (8.4-10.2) mg/dL Phosphorus (2.5-4.5) mg/dL Magnesium (1.6-2.3) mg/dL Total Bilirubin (0.2-1.3) mg/dL AST (17-59) U/L ALT (21-72) U/L Alkaline Phosphatase (38-126) U/L Total Protein (6.3-8.2) g/dL Albumin (3.5-5.0) g/dL Amylase (30-110) U/L Lipase (23-300) U/L Urine Color Yellow Urine Appearance Clear (Clear) Urine pH 5.5 (5.0-8.0) Ur Specific [place] 1.014 (1.001-1.035) Urine Protein 1+ H (Negative) Urine Glucose (UA) Negative (Negative) Urine Ketones 1+ H (Negative) Urine Blood Moderate H (Negative) Urine Nitrite Negative (Negative) Urine Bilirubin Negative (Negative) Urine Urobilinogen 4.0 (<2.0) mg/dL Ur Leukocyte Esterase Negative (Negative) Urine RBC <1 (0-5) /hpf Urine WBC 1 (0-5) /hpf Hyaline Casts 24 H (0-2) /lpf Urine Mucus Rare H (None) /hpf Salicylates <1.0 mg/dL Urine Opiates Screen Detected H (NotDetected) Ur Oxycodone Screen Not Detected (NotDetected) Urine Methadone Screen Not Detected (NotDetected) Ur Propoxyphene Screen Not Detected (NotDetected) Acetaminophen <10.0 ug/mL Ur Barbiturates Screen Not Detected (NotDetected) U Tricyclic Antidepress Not Detected (NotDetected) Ur Phencyclidine Scrn Not Detected (NotDetected) Ur Amphetamines Screen Not Detected (NotDetected) U Methamphetamines Scrn Not Detected (NotDetected) U Benzodiazepines Scrn Not Detected (NotDetected) Urine Cocaine Screen Detected H (NotDetected) U Marijuana (THC) Screen Not Detected (NotDetected) Serum Alcohol mg/dL - Radiology Data Radiology results: report reviewed CT brain was negative for any acute process. Chest x-ray shows no acute cardiopulmonary process. Hilar prominence may be related to problem urinary arterial hypertension. Nonobstructive bowel gas pattern. Disposition Clinical Impression: Altered mental status, Opiate abuse, continuous, Acute renal injury Disposition: ADMITTED IP TO THIS HOSP Condition: Stable Time of Disposition: 22:20
[2016-12-10 20:16] LABS: Basophils % (A) 0 %; CH 33.2; Eosinophils # (A) 0.1 k/uL (0-0.7); Eosinophils % (A) 1 %; HCT 44.5 % (39.0-53.0); HDW 2.07; HGB 14.5 gm/dL (13.0-17.5); Luc # (Auto) 0.11; Luc % (Auto) 2; Lymphocytes # (A) 0.5 k/uL (1.0-4.8); Lymphocytes % (A) 7 %; MCH 33.1 pg (25.0-35.0); MCHC 32.7 g/dL (31.0-37.0); Macrocytosis Slight; Mean Platelet Volume 8.4; Monocytes # (A) 0.3 k/uL (0-1.0); Monocytes % (A) 5 %; Neutrophils # (A) 6.2 k/uL (1.3-7.7); Neutrophils % (A) 86 %; RDW 15.7 % (11.5-15.5); WBC 7.2 k/uL (3.8-10.6); WBC (Perox) 6.83
[2016-12-10 20:26] LABS: Prothrombin Time 10.3 sec (9.0-12.0)
[2016-12-10 20:27] LABS: ALT 129 U/L (21-72); AST 381 U/L (17-59); Alcohol <10 mg/dL; Alkaline Phosphatase 131 U/L (38-126); Amylase 99 U/L (30-110); Anion Gap 17 mmol/L; Blood Urea Nitrogen 50 mg/dL (9-20); Carbon Dioxide 19 mmol/L (22-30); Chloride 108 mmol/L (98-107); Glucose 102 mg/dL (74-99); Magnesium 1.9 mg/dL (1.6-2.3); Non-African American GFR(MDRD) 16 (>60 ml/min/1.73 sqM); Phosphorous 3.7 mg/dL (2.5-4.5); Sodium 144 mmol/L (137-145); Total Bilirubin 2.4 mg/dL (0.2-1.3); Total Protein 8.7 g/dL (6.3-8.2)
--- NOTE | 2016-12-10 20:29 | CT ---
EXAMINATION TYPE: CT brain wo con DATE OF EXAM: 12/10/2016 HISTORY: Altered mental status. CT DLP: 849.2 mGycm. Automated Exposure Control for Dose Reduction was Utilized. TECHNIQUE: CT scan of the head is performed without contrast. COMPARISON: None. FINDINGS: There is no acute intracranial hemorrhage or midline shift identified. There is diffuse v entricular and sulcal prominence consistent with diffuse age-related cerebral atrophy. There is low- attenuation in the periventricular white matter consistent with chronic small vessel ischemic change. 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 The globes are in tact and the visualized sinuses are clear. IMPRESSION: No acute intracranial hemorrhage or midline shift. There is diffuse age-related cerebra l atrophy and chronic small vessel ischemic change noted.
--- NOTE | 2016-12-10 20:51 | XR ---
EXAMINATION TYPE: XR KUB DATE OF EXAM: 12/10/2016 8:27 PM CLINICAL HISTORY: Abdominal pain. TECHNIQUE: Single supine KUB image of the abdomen is obtained. COMPARISON: None. FINDINGS: Scattered gas is seen in non-distended small bowel loops. Surgical clips are seen within th e midline abdomen and left lower quadrant. Inferior vena cava filter spans the L2-L3 vertebral levels , appropriately placed. Mild degenerative changes of the femoral acetabular joints are noted. Degener ative changes of the lumbosacral spine are also seen. Gas and fecal material is seen in non-distended colon. The lung bases are clear and the osseous structures are intact. IMPRESSION: Nonobstructive bowel gas pattern.
--- NOTE | 2016-12-10 20:52 | XR ---
EXAMINATION TYPE: XR chest 1V DATE OF EXAM: 12/10/2016 COMPARISON: 10/11/2016 HISTORY: Atrial fibrillation shortness of breath TECHNIQUE: Single frontal view of the chest is obtained. FINDINGS: There is no focal air space opacity, pleural effusion, or pneumothorax seen. The cardiac silhouette size is within normal limits. The osseous structures are intact. Hilar prominence may re late to pulmonary arterial hypertension. IMPRESSION: No acute cardiopulmonary process. Hilar prominence may relate to pulmonary arterial hype rtension.
[2016-12-10] MEDS ORDERED: NALOXONE 0.4 MG/ML 1 ML VIAL IV STA (21:16)
[2016-12-10 22:01] LABS: Appearance,Urine Clear (Clear); Bilirubin,Urine Negative (Negative); Glucose,Urine (UA) Negative (Negative); Ketones,Urine 1+ (Negative); Leukocyte Esterase,Urine Negative (Negative); Mucus,Urine Rare /hpf; Nitrite,Urine Negative (Negative); PH, Urine 5.5 (5.0-8.0); Particle Count 5938; Protein,Urine 1+ (Negative); RBC,Urine <1 /hpf (0-5); Specific Gravity,Urine 1.014 (1.001-1.035); UA Billing (MACRO vs. MICRO) MICRO; WBC,Urine 1 /hpf (0-5)
[2016-12-10 22:04] LABS: Acetaminophen <10.0 ug/mL; Salicylate <1.0 mg/dL
[2016-12-10] MEDS ORDERED: NALOXONE 0.4 MG/ML 1 ML VIAL IV PRN (22:21)
[2016-12-10] MEDS ORDERED: NALOXONE 0.4 MG/ML 10 ML VIAL IVP STA (22:22)
[2016-12-11] MEDS: SODIUM CHLORIDE 0.9% 1,000 ML IV SCH ×4 (07:26→17:05)
[2016-12-11] MEDS: TAMSULOSIN 0.4 MG CAP.ER.24H PO SCH (07:29)
[2016-12-11] MEDS: CARVEDILOL 3.125 MG TAB PO SCH ×2 (07:29→17:05)
[2016-12-11] MEDS ORDERED: PANTOPRAZOLE 40 MG/10 ML VIAL IV SCH (09:00)
[2016-12-11] MEDS: ALBUTEROL NEBULIZED 2.5 MG/3 ML INHALATION SCH ×3 (09:22→19:04)
[2016-12-11] MEDS: MULTIVITAMINS, THERA 1 EACH TAB PO SCH (11:42)
--- NOTE | 2016-12-11 11:51 | P.HPIM ---
History of Present Illness 76-year-old very pleasant gentleman came in the emergency department after being after he was brought in by EMS after he was found in the gallegos behind the house found to have altered mental status. Since last night to today morning his altered mental status improved significantly. And patient is alert oriented 2 now able to provide me some history. He is still confused. When questioned patient admits to using alcohol and IV heroine. Although not a reliable historian as he is still confused.. Patient's urine drug screen is positive for cocaine and opiates. He is not sure whether he uses cocaine are not. Patient denied any cough, runny nose, dysuria, fever. Denied any chest pain. Review of Systems All the review of systems are negative except for for those mentioned above although patient is not a reliable historian because of the above-mentioned reasons. Past Medical History Past Medical History: Atrial Fibrillation, Asthma, Chest Pain / Angina, CVA/TIA , Eye Disorder, GERD/Reflux, Hyperlipidemia, Hypertension, Osteoarthritis (OA), Pneumonia, Prostate Disorder, Renal Disease Additional Past Medical History / Comment(s): Pt recently admitted 10/13/16 with acute renal failure d/t dehydration, syncope, possible hepatitis with unknown etiology, gastroparesis. Other HX: CVA x 2, CKD stage III, chronic low back pain, BPH, bilateral glaucoma, DJD, gait dysfunction, alcohol abuse. History of Any Multi-Drug Resistant Organisms: None Reported Past Surgical History: Back Surgery, Joint Replacement, Prostate Surgery Additional Past Surgical History / Comment(s): Left total knee surgery, lower lumbar surgery, lumbar pain injections, TURP, colonoscopy, cataracts removed bilaterally. Past Anesthesia/Blood Transfusion Reactions: No Reported Reaction Smoking Status: Never smoker - Past Family History Father Family Medical History: Cancer Additional Family Medical History / Comment(s): colon cancer Mother Family Medical History: Myocardial Infarction ([place]) Brother(s) Family Medical History: Myocardial Infarction ([place]) Medications and Allergies Home Medications Medication Instructions Recorded Confirmed Type Aspirin EC [Ecotrin Low Dose] 81 mg PO DAILY 02/13/16 10/11/16 History Gabapentin [Neurontin] 300 mg PO HS 02/13/16 10/11/16 History Pravastatin Sodium [Pravachol] 20 mg PO HS 07/26/16 10/11/16 History Ranitidine HCl 300 mg PO HS 07/26/16 10/11/16 History Brimonidine Tartrate [Alphagan P 1 drop OPHTHALMIC BID 07/27/16 10/11/16 History 0.2% Ophth Soln] Carvedilol [Coreg] 3.125 tab PO BID 07/27/16 10/11/16 History Dorzolamide HCl [Trusopt 2%] 1 drop OPHTHALMIC BID 07/27/16 10/11/16 History Tamsulosin HCl [Flomax] 0.4 cap PO DAILY 07/27/16 10/11/16 History Timolol [Betimol 0.5% Ophth Soln] 1 drop OPHTHALMIC BID 07/27/16 10/11/16 History Fluticasone Nasal [place] [Flonase 2 spr EA NOSTRIL DAILY 10/11/16 10/11/16 History Nasal [place]] Multivitamins, Thera [Multivitamin 1 tab PO DAILY@1200 10/11/16 10/11/16 History (formulary)] Allergies Allergy/AdvReac Type Severity Reaction Status Date / Time iodine Allergy Unknown Verified 12/10/16 19:01 Physical Exam Vitals: Vital Signs Temp Pulse Pulse Resp BP BP BP 12/11/16 09:32 84 12/11/16 09:22 80 12/11/16 08:00 98.1 F 89 18 142/66 12/11/16 04:04 98.3 F 65 17 167/95 12/11/16 00:04 99 F 85 16 174/80 12/11/16 00:00 98.4 F 62 17 163/83 12/10/16 23:40 97.8 F 69 18 124/71 12/10/16 22:55 97.8 F 69 18 124/71 12/10/16 21:35 62 18 128/77 12/10/16 18:55 97.4 F L 72 12 133/75 Pulse Ox 12/11/16 09:32 12/11/16 09:22 12/11/16 08:00 99 12/11/16 04:04 99 12/11/16 00:04 96 12/11/16 00:00 98 12/10/16 23:40 98 12/10/16 22:55 98 12/10/16 21:35 97 12/10/16 18:55 99 Intake and Output 12/10/16 12/11/16 12/11/16 22:59 06:59 14:59 Intake Total 700 Balance 700 Intake: Intake, IV Titration 700 Amount Sodium Chloride 0.9% 1, 700 000 ml @ 120 mls/hr IV . Q8H20M [facility] Rx#:[id number] Other: Voiding Method Diaper Diaper Incontinent Incontinent # Voids 1 Weight 77.111 kg 77.111 kg Patient Weight 12/12/16 06:59 Weight 77.111 kg PHYSICAL EXAMINATION: GENERAL: The patient is alert confused and oriented 2, not in any acute distress. Well developed, well nourished. HEENT: Pupils are round and equally reacting to light. EOMI. No scleral icterus. No conjunctival pallor. Normocephalic, atraumatic. No pharyngeal erythema. No thyromegaly. CARDIOVASCULAR: S1 and S2 present. No murmurs, rubs, or gallops. PULMONARY: Chest is clear to auscultation, no wheezing or crackles. ABDOMEN: Soft, nontender, nondistended, normoactive bowel sounds. No palpable organomegaly. MUSCULOSKELETAL: No joint swelling or deformity. EXTREMITIES: No cyanosis, clubbing, or pedal edema. NEUROLOGICAL: Gross neurological examination did not reveal any focal deficits. SKIN: No rashes. Results CBC & Chem 7: 12/10/16 20:00 12/10/16 20:00 Labs: Abnormal Lab Results - Last 24 Hours (Table) 12/10/16 12/10/16 12/10/16 Range/Units 20:00 20:00 20:03 MCV 101.0 H (80.0-100.0) fL RDW 15.7 H (11.5-15.5) % Plt Count 137 L (150-450) k/uL Lymphocytes # 0.5 L (1.0-4.8) k/uL Chloride 108 H (98-107) mmol/L Carbon Dioxide 19 L (22-30) mmol/L BUN 50 H (9-20) mg/dL Creatinine 3.65 H (0.66-1.25) mg/dL Glucose 102 H (74-99) mg/dL Total Bilirubin 2.4 H (0.2-1.3) mg/dL AST 381 H (17-59) U/L ALT 129 H (21-72) U/L Alkaline Phosphatase 131 H (38-126) U/L Ammonia 31 H (<30) umol/L Troponin I (0.000-0.034) ng/mL Total Protein 8.7 H (6.3-8.2) g/dL Urine Protein (Negative) Urine Ketones (Negative) Urine Blood (Negative) Hyaline Casts (0-2) /lpf Urine Mucus (None) /hpf Urine Opiates Screen (NotDetected) Urine Cocaine Screen (NotDetected) 12/10/16 12/11/16 Range/Units 21:49 06:28 MCV (80.0-100.0) fL RDW (11.5-15.5) % Plt Count (150-450) k/uL Lymphocytes # (1.0-4.8) k/uL Chloride (98-107) mmol/L Carbon Dioxide (22-30) mmol/L BUN (9-20) mg/dL Creatinine (0.66-1.25) mg/dL Glucose (74-99) mg/dL Total Bilirubin (0.2-1.3) mg/dL AST (17-59) U/L ALT (21-72) U/L Alkaline Phosphatase (38-126) U/L Ammonia (<30) umol/L Troponin I 0.037 H* (0.000-0.034) ng/mL Total Protein (6.3-8.2) g/dL Urine Protein 1+ H (Negative) Urine Ketones 1+ H (Negative) Urine Blood Moderate H (Negative) Hyaline Casts 24 H (0-2) /lpf Urine Mucus Rare H (None) /hpf Urine Opiates Screen Detected H (NotDetected) Urine Cocaine Screen Detected H (NotDetected) Thrombosis Risk Factor Assmnt - Choose All That Apply Any of the Below Risk Factors Present?: Yes Other Risk Factors: Yes Each Risk Factor Represents 3 Points: Age 75 years or older Other congenital or acquired thrombophilia - If yes, enter type in comment: No Thrombosis Risk Factor Assessment Total Risk Factor Score: 3 Thrombosis Risk Factor Assessment Level: Moderate Risk Assessment and Plan Plan: #1 altered mental status: Secondary to metabolic and toxic encephalopathy: Toxic encephalopathy is due to IV drug use as mentioned above. Since there is a questionable history of thyroid use a lot or hepatitis panel. #2 acute renal failure: Probably prerenal azotemia although nonoliguric acute tubular necrosis cannot be ruled out. Patient was on 1 25 mL of normal saline which will be continued. Patient's baseline creatinine is around 0.9 from his previous hospitalizations. #3 alcohol abuse, heroine use and possible cocaine use: Counseling was provided regarding these. #4 elevated liver enzymes: Probably due to medications and drug abuse as mentioned above are alcohol abuse as mentioned above. Will monitor. #5 CVA or TIA in the past. #6 essential hypertension #7 glaucoma For above-mentioned chronic medical problems patient will be continued on home medications monitor and titrate as needed.
[2016-12-11 14:21] LABS: Hepatitis B Surface Ag Index 0.11
[2016-12-11 14:27] LABS: Hepatitis B Core IgM Index 0.02
[2016-12-11 14:38] LABS: Hepatitis C Virus IgG Ab Reactive (Negative)
[2016-12-11] MEDS: BENZOCAINE 20% HEMORRHOIDAL OINT 28GM RECTAL SCH ×2 (16:18→22:11)
[2016-12-11] MEDS: FAMOTIDINE 20 MG TAB PO SCH ×2 (22:09→22:23)
[2016-12-11] MEDS: HYDROCORTISONE SUPPOSITORY 25 MG SUPP RECTAL SCH (22:10)
[2016-12-12] MEDS ORDERED: QUEtiapine 25 MG TAB PO STA (00:13)
[2016-12-12] MEDS: ALBUTEROL NEBULIZED 2.5 MG/3 ML INHALATION SCH ×4 (00:39→19:14)
[2016-12-12] MEDS: ACETAMINOPHEN TAB 325 MG TAB PO PRN ×2 (05:29→13:45)
[2016-12-12] MEDS: ONDANSETRON 4 MG/2 ML VIAL IVP PRN (05:29)
--- NOTE | 2016-12-12 08:30 | P.PN ---
Subjective 76-year-old admitted secondary to drug use and altered mental status secondary to that. Patient mental status improved yesterday morning but patient was more confused last night and was agitated. Patient has hemorrhoids, also had coffee- ground emesis last night. Patient is comparing of abdominal pain and does have tenderness in the left lower quadrant. Unfortunately I'm unable to obtain any CAT scan at this time because of his kidney function. Gastroenterology will be consulted. Patient was started on Protonix I still do not have any labs available at this point of time. Patient will be continued on IV normal saline. Patient denied any cough, new focal weakness, fever, dysuria. Patient is more oriented now. Objective - Vital Signs Vital signs: Vital Signs Temp 99.0 F 12/12/16 03:30 Pulse 106 H 12/12/16 03:30 Resp 17 12/12/16 03:30 BP 163/94 12/12/16 03:30 Pulse Ox 98 12/12/16 03:30 Intake & Output 12/11/16 12/12/16 12/12/16 18:59 06:59 18:59 Intake Total 900 2000 Balance 900 2000 Weight 77.111 kg Intake: Intake, IV Titration 900 1300 Amount Sodium Chloride 0.9% 1, 900 1300 000 ml @ 120 mls/hr IV . Q8H20M [facility] Rx#:[id number] Oral 700 Other: Voiding Method Diaper Diaper Incontinent Incontinent # Voids 1 2 - Exam PHYSICAL EXAMINATION: GENERAL: The patient is alert confused and oriented 2-3, not in any acute distress. Well developed, well nourished. HEENT: Pupils are round and equally reacting to light. EOMI. No scleral icterus. No conjunctival pallor. Normocephalic, atraumatic. No pharyngeal erythema. No thyromegaly. CARDIOVASCULAR: S1 and S2 present. No murmurs, rubs, or gallops. PULMONARY: Chest is clear to auscultation, no wheezing or crackles. ABDOMEN: Soft, tenderness in the left lower quadrant, nondistended, normoactive bowel sounds. No palpable organomegaly. MUSCULOSKELETAL: No joint swelling or deformity. EXTREMITIES: No cyanosis, clubbing, or pedal edema. NEUROLOGICAL: Gross neurological examination did not reveal any focal deficits. SKIN: No rashes. - Labs CBC & Chem 7: 12/10/16 20:00 12/10/16 20:00 Assessment and Plan Plan: #1 altered mental status: Secondary to metabolic and toxic encephalopathy: Toxic encephalopathy is due to IV drug use. Patient is positive for hepatitis C. #2 acute renal failure: Probably prerenal azotemia although nonoliguric acute tubular necrosis cannot be ruled out. Patient was on 1 25 mL of normal saline which will be continued. Patient's baseline creatinine is around 0.9 from his previous hospitalizations. I do not have any labs from today morning. #3 alcohol abuse, heroine use and possible cocaine use: Counseling was provided regarding these. #4 elevated liver enzymes: Probably due to medications and drug abuse as mentioned above are alcohol abuse as mentioned above. Will monitor. #5 CVA or TIA in the past. #6 essential hypertension #7 glaucoma #8 coffee-ground emesis and hemorrhoids: Patient was started on Protonix gastroneurology will be consulted #9 abdominal pain and tenderness in the left lower quadrant: Probably related to constipation and hemorrhoids, other differential being diverticulitis. Will monitor for now if kidney function improves will obtain a CAT scan of the abdomen with contrast. Awaiting today morning labs. For above-mentioned chronic medical problems patient will be continued on home medications monitor and titrate as needed.
[2016-12-12] MEDS: SODIUM CHLORIDE 0.9% 1,000 ML IV SCH ×3 (08:53→18:09)
[2016-12-12 08:54] LABS: ALT 73 U/L (21-72); AST 104 U/L (17-59); Alkaline Phosphatase 94 U/L (38-126); Anion Gap 10 mmol/L; Blood Urea Nitrogen 23 mg/dL (9-20); Calcium 8.7 mg/dL (8.4-10.2); Carbon Dioxide 19 mmol/L (22-30); Chloride 114 mmol/L (98-107); Glucose 166 mg/dL (74-99); Non-African American GFR(MDRD) >60 (>60 ml/min/1.73 sqM); Potassium 3.7 mmol/L (3.5-5.1); Sodium 143 mmol/L (137-145); Total Bilirubin 1.7 mg/dL (0.2-1.3); Total Protein 5.9 g/dL (6.3-8.2)
[2016-12-12] MEDS: CARVEDILOL 3.125 MG TAB PO SCH ×2 (08:55→18:05)
[2016-12-12] MEDS: TAMSULOSIN 0.4 MG CAP.ER.24H PO SCH (08:55)
[2016-12-12] MEDS: HYDROCORTISONE SUPPOSITORY 25 MG SUPP RECTAL SCH ×2 (08:56→21:04)
[2016-12-12] MEDS: BENZOCAINE 20% HEMORRHOIDAL OINT 28GM RECTAL SCH ×2 (08:56→22:08)
[2016-12-12 11:11] LABS: CH 33.2; CHCM 32.9; HCT 40.2 % (39.0-53.0); HDW 2.03; HGB 13.1 gm/dL (13.0-17.5); Immature Gran Flag Slight; MCH 33.1 pg (25.0-35.0); MCHC 32.7 g/dL (31.0-37.0); MCV 101.4 fL (80.0-100.0); Macrocytosis Slight; Mean Platelet Volume 9.9; RBC 3.96 m/uL (4.30-5.90); RDW 15.4 % (11.5-15.5); WBC 9.1 k/uL (3.8-10.6); WBC (Perox) 10.33
[2016-12-12] MEDS: PANTOPRAZOLE 40 MG/10 ML VIAL IVP SCH ×2 (11:22→22:08)
[2016-12-12 12:48] LABS: Glucose,Whole Blood 240 mg/dL (75-99)
[2016-12-12 13:15] LABS: CH 32.6; CHCM 33.6; HCT 35.6 % (39.0-53.0); HDW 2.17; HGB 12.3 gm/dL (13.0-17.5); Immature Gran Flag Marked; MCH 33.5 pg (25.0-35.0); MCHC 34.4 g/dL (31.0-37.0); MCV 97.4 fL (80.0-100.0); Mean Platelet Volume 9.8; RBC 3.65 m/uL (4.30-5.90); RDW 14.8 % (11.5-15.5); WBC 11.8 k/uL (3.8-10.6); WBC (Perox) 11.42
[2016-12-12 13:27] LABS: Add Differential Manual Differential
[2016-12-12 13:28] LABS: Nucleated Red Blood Cells 0 /100 WBC (0-0); Total Cells Counted 100
[2016-12-12 13:29] LABS: Toxic Granulation Present
[2016-12-12] MEDS: metroNIDAZOLE-NS PMX 500 MG in SALINE 1 100ML.BAG IVPB SCH ×2 (13:36→17:00)
[2016-12-12] MEDS: LEVOFLOXACIN 500MG-D5W PMX 500 MG in DEXTROSE/WATER 1 100ML.BAG IVPB SCH (13:36)
[2016-12-12] MEDS: MULTIVITAMINS, THERA 1 EACH TAB PO SCH (13:37)
[2016-12-12 13:54] LABS: Add Differential Manual Differential
[2016-12-12 13:56] LABS: Nucleated Red Blood Cells 0 /100 WBC (0-0); Total Cells Counted 100
[2016-12-12 14:00] LABS: Toxic Granulation Present
[2016-12-12] MEDS ORDERED: ALPRAZolam 0.25 MG TAB PO PRN (17:40)
--- NOTE | 2016-12-12 17:40 | P.CNPUL ---
History of Present Illness Consult date: 12/12/16 Chief complaint: GIB History of present illness: A 76-year-old -[place]ian male patient who used to live in [place] and currently is residing in [facility] [place]. The patient was brought into the MRSA problem yesterday. EMS as the patient was found in the gallegos in the back of his house unresponsive. He was reported to have altered mental status. Upon further inquiry it seems that the patient was doing drugs. He admits for doing heroin in the past and his urine drug screen is also positive for cocaine. He is also an alcoholic and he drinks approximately a pint of hard liquor on a daily basis. He has bronchial asthma and chronic atrial fibrillation.. He has had previous CVA 2 and he is also known to have hypertension and hyperlipidemia and chronic back pain for which she has received lumbar spine injections. The patient also reported some abdominal pain. It was hard to elicit the details of his abdominal pain based on his altered mentation. He was brought into the emergency department with a CAT scan of the brain was done and showed diffuse brain atrophy. No acute intracranial bleed or CVA. Urine drug screen was positive for opiates and cocaine. His alcohol level was less than 10. Is Tylenol level was negative. Salicylates were negative. The rest of the urine drug screen was also negative. Chest x-ray was free of any pulmonary infiltrates. The patient was admitted to the medical floor and this afternoon the patient had a large maroon colored bowel movements. He was also noted to be tachycardic and his atrial fibrillation went into rapid ventricular response. It was noted that his heart rate was as high as 146 and subsequently dropped down to 170 with fluid resuscitation. The patient is currently on normal saline infusion at the rate of 1 20 mL an hour. He is diabetic rhythm is still atrial fibrillation yet less tachycardic as mentioned. His last bowel movement was at 2 PM and this was again maroon color. His initial hemoglobin was at 14.5 and subsequently dropped down to 12.3. Coags including PT/INR are within normal limits. Abdomen is nondistended. No nausea. No vomiting. No hematemesis. No ascites. No stigmata of chronic liver failure despite his chronic alcoholism. In fact his mental status is improved and he was able to answer all my questions appropriately without any major difficulties. He denied having any chest pain. No shortness of breath. No dizziness at this point. GI has been consulted. The patient also tested positive for anti-hepatitis C IgG. Review of Systems Constitutional: Reports fatigue, Reports lethargy, Reports malaise, Reports weight loss Eyes: denies as per HPI, denies blurred vision, denies bulging eye Ears: deny: decreased hearing, ear discharge, earache Ears, nose, mouth and throat: Denies headache, Denies sore throat Cardiovascular: Reports irregular heart beat, Reports rapid heart beat Gastrointestinal: Reports BRBPR Genitourinary: Reports as per HPI Musculoskeletal: Reports as per HPI, Reports low back pain Musculoskeletal: absent: ankle pain, ankle stiffness, ankle swelling Integumentary: Denies pruritus, Denies rash Neurological: Reports change in mentation, Reports numbness, Reports weakness Psychiatric: Denies anxiety, Denies depression Endocrine: Denies fatigue, Denies weight change Past Medical History Past Medical History: Atrial Fibrillation, Asthma, CVA/TIA, Eye Disorder, GERD/ Reflux, Hyperlipidemia, Hypertension, Osteoarthritis (OA), Prostate Disorder Additional Past Medical History / Comment(s): Bronchial asthma, chronic atrial fibrillation, glaucoma, alcoholism, polysubstance abuse including heroin and cocaine, hepatitis C positive, CVA/TIA 2, acid reflux, hyperlipidemia, osteoarthritis, BPH, hypertension History of Any Multi-Drug Resistant Organisms: None Reported Past Surgical History: Back Surgery, Joint Replacement, Prostate Surgery Additional Past Surgical History / Comment(s): Left total knee surgery, lower lumbar surgery, lumbar pain injections, TURP, colonoscopy, cataracts removed bilaterally. Surgery for a hernia and intra-abdominal surgery for bowel resection felt to be related to a previous bowel obstruction. Past Anesthesia/Blood Transfusion Reactions: No Reported Reaction Smoking Status: Never smoker Past Drug Use History: Cocaine, Heroin - Past Family History Father Family Medical History: Cancer Additional Family Medical History / Comment(s): colon cancer Mother Family Medical History: Myocardial Infarction ([place]) Brother(s) Family Medical History: Myocardial Infarction ([place]) Medications and Allergies Home Medications Medication Instructions Recorded Confirmed Type Aspirin EC [Ecotrin Low Dose] 81 mg PO DAILY 02/13/16 12/11/16 History Gabapentin [Neurontin] 300 mg PO HS 02/13/16 12/11/16 History Pravastatin Sodium [Pravachol] 20 mg PO HS 07/26/16 12/11/16 History Ranitidine HCl 300 mg PO HS 07/26/16 12/11/16 History Brimonidine Tartrate [Alphagan P 1 drop BOTH EYES BID 07/27/16 12/11/16 History 0.2% Ophth Soln] Carvedilol [Coreg] 3.125 mg PO BID 07/27/16 12/11/16 History Dorzolamide HCl [Trusopt 2%] 1 drop BOTH EYES BID 07/27/16 12/11/16 History Tamsulosin HCl [Flomax] 0.4 cap PO DAILY 07/27/16 12/11/16 History Timolol [Betimol 0.5% Ophth Soln] 1 drop BOTH EYES BID 07/27/16 12/11/16 History Fluticasone Nasal [place] [Flonase 2 spr EA NOSTRIL DAILY 10/11/16 12/11/16 History Nasal [place]] Multivitamins, Thera [Multivitamin 1 tab PO DAILY@1200 10/11/16 12/11/16 History (formulary)] Albuterol Inhaler [Ventolin Hfa 1 - 2 puff INHALATION RT-Q6H PRN 12/11/16 History Inhaler] Albuterol Nebulized [Ventolin 2.5 mg INHALATION RT-QID PRN 12/11/16 12/11/16 History Nebulized] HYDROcodone/APAP 5-325MG [[place] 1 tab PO Q6HR PRN 12/11/16 12/11/16 History 5-325] Lisinopril [Zestril] 10 mg PO DAILY 12/11/16 12/11/16 History PARoxetine [Paxil] 20 mg PO DAILY 12/11/16 12/11/16 History Allergies Allergy/AdvReac Type Severity Reaction Status Date / Time iodine Allergy Unknown Verified 12/10/16 19:01 Physical Exam Vitals: Vital Signs Temp Pulse Pulse Resp BP BP BP 12/12/16 17:10 117 H 109/74 12/12/16 17:00 118 H 109/74 12/12/16 16:50 113 H 109/74 12/12/16 16:40 114 H 109/74 12/12/16 16:30 110 H 109/74 12/12/16 16:20 111 H 109/74 12/12/16 16:10 113 H 109/74 12/12/16 16:00 109 H 121 H 22 109/74 12/12/16 15:50 130 H 135/80 12/12/16 15:40 128 H 135/80 12/12/16 15:30 122 H 135/80 12/12/16 15:20 115 H 135/80 12/12/16 15:10 131 H 135/80 12/12/16 15:00 131 H 135/80 12/12/16 14:50 134 H 12/12/16 14:40 123 H 103/62 12/12/16 14:30 118 H 103/62 12/12/16 14:20 124 H 103/62 12/12/16 14:10 132 H 103/62 12/12/16 14:00 133 H 103/62 12/12/16 13:50 146 H 103/62 12/12/16 13:40 126 H 103/62 12/12/16 13:30 119 H 22 103/62 12/12/16 13:29 121 H 103/62 12/12/16 11:00 98 F 121 H 22 117/81 12/12/16 08:00 98.6 F 87 16 153/89 12/12/16 03:30 99.0 F 106 H 17 163/94 12/11/16 23:00 98.8 F 99 16 157/94 12/11/16 19:17 109 H 12/11/16 19:07 110 H 12/11/16 19:00 99.1 F 105 H 16 144/86 Pulse Ox 12/12/16 17:10 12/12/16 17:00 12/12/16 16:50 12/12/16 16:40 12/12/16 16:30 12/12/16 16:20 12/12/16 16:10 12/12/16 16:00 12/12/16 15:50 12/12/16 15:40 12/12/16 15:30 12/12/16 15:20 12/12/16 15:10 12/12/16 15:00 12/12/16 14:50 12/12/16 14:40 12/12/16 14:30 12/12/16 14:20 12/12/16 14:10 12/12/16 14:00 12/12/16 13:50 12/12/16 13:40 12/12/16 13:30 99 12/12/16 13:29 12/12/16 11:00 95 12/12/16 08:00 96 12/12/16 03:30 98 12/11/16 23:00 100 12/11/16 19:17 12/11/16 19:07 12/11/16 19:00 98 Intake and Output 12/12/16 12/12/16 12/12/16 06:59 14:59 22:59 Intake Total 700 560 460 Output Total 370 40 Balance 700 190 420 Intake: Intake, IV Titration 500 560 460 Amount Levofloxacin 500Mg-D5w 100 Pmx 500 mg In Dextrose/ Water 1 100ml.bag @ 100 mls/hr IVPB Q24H [facility] Rx#: [id number] Sodium Chloride 0.9% 1, 500 360 360 000 ml @ 120 mls/hr IV . Q8H20M [facility] Rx#:[id number] metroNIDAZOLE-NS PMX 500 100 100 mg In Saline 1 100ml.bag @ 100 mls/hr IVPB Q8HR [facility] Rx#:[id number] Oral 200 Output: Urine 220 40 Stool 150 Other: Voiding Method Diaper Diaper Urinal Incontinent Incontinent # Voids 2 1 # Bowel Movements 1 Weight 77.111 kg Patient Weight 12/13/16 06:59 Weight 77.111 kg Thin, frail, elderly, malnourished, nonacute distress.Head exam was generally normal. There was no scleral icterus or corneal arcus. Mucous membranes were moist. Neck is supple and there is no JVDs no goiter or neck masses. Lungs sounds are diminished bilaterally otherwise clear. Heart sounds are irregular, possible sinus and there is no significant murmurs appreciated. Abdomen is soft and nontender. There is no ascites. There is a irregular scar in the right upper quadrant area and there is a mid abdominal scar below the umbilicus related to a previous bowel resection. No direct tenderness no rebound tenderness. No guarding. No hernias felt.Examination of the extremities revealed easily palpable radial, femoral and pedal pulses. There was no cyanosis , clubbing or edema. Neurologically the patient is awake and alert and following commands and he has no focal neurological deficit at this point. Results - Laboratory Findings CBC and BMP: 12/12/16 11:26 12/12/16 07:46 PT/INR, D-dimer PT 10.3 sec (9.0-12.0) 12/10/16 20:00 INR 1.0 (<1.2) 12/10/16 20:00 Abnormal lab findings: Abnormal Labs 12/10/16 12/10/16 12/10/16 20:00 20:00 20:03 WBC RBC Hgb Hct MCV 101.0 H RDW 15.7 H Plt Count 137 L Neutrophils # (Manual) Lymphocytes # 0.5 L Lymphocytes # (Manual) Monocytes # (Manual) Chloride 108 H Carbon Dioxide 19 L BUN 50 H Creatinine 3.65 H Glucose 102 H POC Glucose (mg/dL) Total Bilirubin 2.4 H AST 381 H ALT 129 H Alkaline Phosphatase 131 H Ammonia 31 H Troponin I Total Protein 8.7 H Albumin Urine Protein Urine Ketones Urine Blood Hyaline Casts Urine Mucus Urine Opiates Screen Urine Cocaine Screen 12/10/16 12/11/16 12/12/16 21:49 06:28 07:46 WBC RBC Hgb Hct MCV RDW Plt Count Neutrophils # (Manual) Lymphocytes # Lymphocytes # (Manual) Monocytes # (Manual) Chloride 114 H Carbon Dioxide 19 L BUN 23 H Creatinine Glucose 166 H POC Glucose (mg/dL) Total Bilirubin 1.7 H AST 104 H ALT 73 H Alkaline Phosphatase Ammonia Troponin I 0.037 H* Total Protein 5.9 L Albumin 2.8 L Urine Protein 1+ H Urine Ketones 1+ H Urine Blood Moderate H Hyaline Casts 24 H Urine Mucus Rare H Urine Opiates Screen Detected H Urine Cocaine Screen Detected H 12/12/16 12/12/16 12/12/16 07:46 11:26 12:46 WBC 11.8 H RBC 3.96 L 3.65 L Hgb 12.3 L Hct 35.6 L MCV 101.4 H RDW Plt Count 86 L 78 L Neutrophils # (Manual) 10.14 H Lymphocytes # Lymphocytes # (Manual) 0.27 L 0.71 L Monocytes # (Manual) 1.18 H Chloride Carbon Dioxide BUN Creatinine Glucose POC Glucose (mg/dL) 240 H Total Bilirubin AST ALT Alkaline Phosphatase Ammonia Troponin I Total Protein Albumin Urine Protein Urine Ketones Urine Blood Hyaline Casts Urine Mucus Urine Opiates Screen Urine Cocaine Screen - Diagnostic Findings Chest x-ray: image reviewed Assessment and Plan Plan: Assessment 1 bilateral red blood per rectum, rule out lower GI bleeding. Upper GI bleeding cannot be completely excluded knowing that the patient has history of alcoholism. Nevertheless, no 70 peptic ulcer disease or any stigmata of chronic liver failure at this point. 2 chronic atrial fibrillation. The patient developed rapid ventricular response at a time of his GI bleeding. His heart rate is gradually improving with fluid resuscitation. He is also on Coreg for rate control. 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 Rule out underlying drug encephalopathy. 10 thrombocytopenia, likely related to chronic alcohol ingestion 11 recent authorization for an acute kidney injury/dehydration from which the patient has recovered Plan Will monitor this patient in the intensive care unit. Continue normal saline today to 1 25 mL an hour. Hemoglobin monitoring every 4 hours over the next 24 hours. GI consultation. IV Protonix. Correlation profile is within normal limits. No need for any octreotide as there is no indication of any portal hypertension or portal gastropathy. Watch for any signs of delirium tremens. Continue monitoring the heart rate and may need to use a Cardizem drip if continues to be tachycardic. For now the patient's rate is being controlled with fluid resuscitation and oral Coreg. We will reconsult his medications. We 'll continue to follow make further recommendations based on his progress. If stable, he can go back to his medical floor.
[2016-12-12 18:30] LABS: CH 32.2; CHCM 32.9; HCT 32.5 % (39.0-53.0); HDW 2.13; HGB 11.2 gm/dL (13.0-17.5); Immature Gran Flag Moderate; MCH 33.8 pg (25.0-35.0); MCHC 34.4 g/dL (31.0-37.0); MCV 98.1 fL (80.0-100.0); Mean Platelet Volume 8.4; RBC 3.32 m/uL (4.30-5.90); RDW 14.8 % (11.5-15.5); WBC 11.2 k/uL (3.8-10.6); WBC (Perox) 10.51
[2016-12-12 18:48] LABS: Add Differential Manual Differential
[2016-12-12 18:50] LABS: Nucleated Red Blood Cells 0 /100 WBC (0-0); Polychromasia Present; Total Cells Counted 100
[2016-12-12] MEDS: PARoxetine 20 MG TAB PO SCH (19:21)
[2016-12-12] MEDS: GABAPENTIN 300 MG CAP PO SCH (21:02)
[2016-12-12] MEDS: TIMOLOL 0.5% OPHTH DROPS 5 ML BTL BOTH EYES SCH (21:03)
[2016-12-12] MEDS: DORZOLAMIDE HCL 2% DROPS 10 ML BTL BOTH EYES SCH (21:03)
[2016-12-12] MEDS: BRIMONIDINE TARTRATE 0.2% DROPS 5 ML BTL BOTH EYES SCH (21:03)
[2016-12-12] MEDS: traMADol 50 MG TAB PO PRN (21:12)
[2016-12-12] MEDS ORDERED: ALBUTEROL NEBULIZED 2.5 MG/3 ML INHALATION PRN (23:29)
[2016-12-13] MEDS: SODIUM CHLORIDE 0.9% 1,000 ML IV SCH ×4 (00:54→15:24)
[2016-12-13] MEDS: metroNIDAZOLE-NS PMX 500 MG in SALINE 1 100ML.BAG IVPB SCH ×3 (00:54→15:49)
[2016-12-13] MEDS: ACETAMINOPHEN TAB 325 MG TAB PO PRN (00:56)
[2016-12-13 06:56] LABS: CH 32.5; CHCM 32.8; HCT 29.8 % (39.0-53.0); HDW 2.19; MCH 32.4 pg (25.0-35.0); MCHC 32.6 g/dL (31.0-37.0); MCV 99.3 fL (80.0-100.0); Macrocytosis Slight; Mean Platelet Volume 8.4; RDW 14.9 % (11.5-15.5)
[2016-12-13 07:09] LABS: ALT 56 U/L (21-72); AST 46 U/L (17-59); Alkaline Phosphatase 72 U/L (38-126); Anion Gap 8 mmol/L; Blood Urea Nitrogen 24 mg/dL (9-20); Calcium 7.9 mg/dL (8.4-10.2); Carbon Dioxide 21 mmol/L (22-30); Chloride 114 mmol/L (98-107); Glucose 125 mg/dL (74-99); Magnesium 1.2 mg/dL (1.6-2.3); Non-African American GFR(MDRD) >60 (>60 ml/min/1.73 sqM); Phosphorous 1.5 mg/dL (2.5-4.5); Potassium 3.4 mmol/L (3.5-5.1); Sodium 143 mmol/L (137-145); Total Protein 4.8 g/dL (6.3-8.2)
[2016-12-13 07:12] LABS: HGB 9.7 gm/dL (13.0-17.5)
[2016-12-13] MEDS: ALBUTEROL NEBULIZED 2.5 MG/3 ML INHALATION SCH ×3 (07:14→20:21)
[2016-12-13] MEDS ORDERED: Potassium Replacement Protocol 1 EACH MISC MISCELLANE PRN ×2 (07:51→15:54)
[2016-12-13] MEDS ORDERED: Phosphorus Replacement Protoco 1 EACH MISC MISCELLANE PRN (07:51)
[2016-12-13] MEDS ORDERED: Magnesium Replacement Protocol 1 EACH MISC MISCELLANE PRN (07:51)
[2016-12-13] MEDS: MAGNESIUM SULFATE-D5W PMX 1 GM in DEXTROSE/WATER 1 100ML.BAG IVPB SCH ×3 (08:55→12:40)
[2016-12-13] MEDS: CARVEDILOL 3.125 MG TAB PO SCH ×2 (08:55→18:04)
[2016-12-13] MEDS: BENZOCAINE 20% HEMORRHOIDAL OINT 28GM RECTAL SCH ×2 (08:56→21:22)
[2016-12-13] MEDS: DORZOLAMIDE HCL 2% DROPS 10 ML BTL BOTH EYES SCH ×2 (08:59→21:20)
[2016-12-13] MEDS: HYDROCORTISONE SUPPOSITORY 25 MG SUPP RECTAL SCH ×2 (08:59→21:22)
[2016-12-13] MEDS: PANTOPRAZOLE 40 MG/10 ML VIAL IVP SCH ×2 (08:59→21:22)
[2016-12-13] MEDS: BRIMONIDINE TARTRATE 0.2% DROPS 5 ML BTL BOTH EYES SCH ×2 (08:59→21:21)
[2016-12-13] MEDS: PARoxetine 20 MG TAB PO SCH (09:00)
[2016-12-13] MEDS: POTASSIUM CHLORIDE ER 20 MEQ TAB.ER PO SCH ×4 (09:00→18:04)
[2016-12-13] MEDS: TAMSULOSIN 0.4 MG CAP.ER.24H PO SCH (09:00)
[2016-12-13] MEDS: TIMOLOL 0.5% OPHTH DROPS 5 ML BTL BOTH EYES SCH ×2 (09:01→21:20)
[2016-12-13] MEDS: SODIUM PHOSPHATE 10 MMOL in SODIUM CHLORIDE 0.9% 250 ML IVPB SCH ×2 (12:41→13:00)
[2016-12-13] MEDS: LEVOFLOXACIN 500MG-D5W PMX 500 MG in DEXTROSE/WATER 1 100ML.BAG IVPB SCH (12:42)
[2016-12-13] MEDS: MULTIVITAMINS, THERA 1 EACH TAB PO SCH (12:42)
--- NOTE | 2016-12-13 15:26 | P.PN ---
Subjective A 76-year-old -[place] male patient who used to live in [place] and currently is residing in [facility]. The patient was brought into the MRSA problem yesterday. EMS as the patient was found in the gallegos in the back of his house unresponsive. He was reported to have altered mental status. Upon further inquiry it seems that the patient was doing drugs. He admits for doing heroin in the past and his urine drug screen is also positive for cocaine. He is also an alcoholic and he drinks approximately a pint of hard liquor on a daily basis. He has bronchial asthma and chronic atrial fibrillation.. He has had previous CVA 2 and he is also known to have hypertension and hyperlipidemia and chronic back pain for which she has received lumbar spine injections. The patient also reported some abdominal pain. It was hard to elicit the details of his abdominal pain based on his altered mentation. He was brought into the emergency department with a CAT scan of the brain was done and showed diffuse brain atrophy. No acute intracranial bleed or CVA. Urine drug screen was positive for opiates and cocaine. His alcohol level was less than 10. Is Tylenol level was negative. Salicylates were negative. The rest of the urine drug screen was also negative. Chest x-ray was free of any pulmonary infiltrates. The patient was admitted to the medical floor and this afternoon the patient had a large maroon colored bowel movements. He was also noted to be tachycardic and his atrial fibrillation went into rapid ventricular response. It was noted that his heart rate was as high as 146 and subsequently dropped down to 170 with fluid resuscitation. The patient is currently on normal saline infusion at the rate of 1 20 mL an hour. He is diabetic rhythm is still atrial fibrillation yet less tachycardic as mentioned. His last bowel movement was at 2 PM and this was again maroon color. His initial hemoglobin was at 14.5 and subsequently dropped down to 12.3. Coags including PT/INR are within normal limits. Abdomen is nondistended. No nausea. No vomiting. No hematemesis. No ascites. No stigmata of chronic liver failure despite his chronic alcoholism. In fact his mental status is improved and he was able to answer all my questions appropriately without any major difficulties. He denied having any chest pain. No shortness of breath. No dizziness at this point. GI has been consulted. The patient also tested positive for anti-hepatitis C IgG. On 12/13/2016 the patient is being seen in follow-up. Awake and alert. No change in mental status. No respiratory distress. No active bleeding. Gastro pathology saw the patient there are no plans for scoping this patient today. No signs of any delirium tremens. The patient is hemodynamic is stable. No respiratory distress. No aspiration. No fever. No chills no signs of septicemia. No other significant events overnight. Hemoglobin dropped down to 9.7. Objective - Vital Signs Vital signs: Vital Signs Temp 98.7 F 12/13/16 12:00 Pulse 101 H 12/13/16 15:00 Resp 21 12/13/16 15:00 BP 125/79 12/13/16 15:00 Pulse Ox 98 12/13/16 15:00 Intake & Output 12/12/16 12/13/16 12/13/16 18:59 06:59 18:59 Intake Total 1140 1420 2160 Output Total 410 390 400 Balance 730 1030 1760 Weight 77.111 kg 78 kg Intake: IV 1200 1080 Sodium Chloride 0.9% 1, 1200 1080 000 ml @ 120 mls/hr IV . Q8H20M [facility] Rx#:[id number] Intake, IV Titration 5292 343 2589 Amount Levofloxacin 500Mg-D5w 100 100 Pmx 500 mg In Dextrose/ Water 1 100ml.bag @ 100 mls/hr IVPB Q24H [facility] Rx#: [id number] Magnesium Sulfate-D5w Pmx 300 1 gm In Dextrose/Water 1 100ml.bag @ 100 mls/hr IVPB Q1H [facility] Rx#: [id number] Sodium Chloride 0.9% 1, 840 120 000 ml @ 120 mls/hr IV . Q8H20M [facility] Rx#:[id number] Sodium Phosphate 10 mmol 500 In Sodium Chloride 0.9% 250 ml @ 125 mls/hr IVPB Q2H [facility] Rx#:[id number] metroNIDAZOLE-NS PMX 500 200 100 100 mg In Saline 1 100ml.bag @ 100 mls/hr IVPB Q8HR [facility] Rx#:[id number] Oral 80 Output: Urine 260 240 400 Stool 150 150 Other: Voiding Method Urinal Urinal Urinal # Voids 1 1 # Bowel Movements 1 1 - Exam Thin, frail, elderly, malnourished, nonacute distress.Head exam was generally normal. There was no scleral icterus or corneal arcus. Mucous membranes were moist. Neck is supple and there is no JVDs no goiter or neck masses. Lungs sounds are diminished bilaterally otherwise clear. Heart sounds are irregular, possible sinus and there is no significant murmurs appreciated. Abdomen is soft and nontender. There is no ascites. There is a irregular scar in the right upper quadrant area and there is a mid abdominal scar below the umbilicus related to a previous bowel resection. No direct tenderness no rebound tenderness. No guarding. No hernias felt.Examination of the extremities revealed easily palpable radial, femoral and pedal pulses. There was no cyanosis , clubbing or edema. Neurologically the patient is awake and alert and following commands and he has no focal neurological deficit at this point. - Labs CBC & Chem 7: 12/13/16 06:38 12/13/16 06:38 Labs: Abnormal Lab Results - Last 24 Hours (Table) 12/12/16 12/13/16 12/13/16 Range/Units 17:47 06:38 06:38 WBC 11.2 H (3.8-10.6) k/uL RBC 3.32 L 3.00 L (4.30-5.90) m/uL Hgb 11.2 L 9.7 L D (13.0-17.5) gm/dL Hct 32.5 L 29.8 L (39.0-53.0) % Plt Count 86 L 89 L (150-450) k/uL Neutrophils # (Manual) 8.40 H (1.3-7.7) k/uL Lymphocytes # (Manual) 0.78 L (1.0-4.8) k/uL Monocytes # (Manual) 2.02 H (0-1.0) k/uL Potassium 3.4 L (3.5-5.1) mmol/L Chloride 114 H (98-107) mmol/L Carbon Dioxide 21 L (22-30) mmol/L BUN 24 H (9-20) mg/dL Glucose 125 H (74-99) mg/dL Calcium 7.9 L (8.4-10.2) mg/dL Phosphorus 1.5 L (2.5-4.5) mg/dL Magnesium 1.2 L (1.6-2.3) mg/dL Total Protein 4.8 L (6.3-8.2) g/dL Albumin 2.2 L (3.5-5.0) g/dL Assessment and Plan Plan: Assessment 1 bright red blood per rectum, rule out lower GI bleeding. Upper GI bleeding cannot be completely excluded knowing that the patient has history of alcoholism. Nevertheless, no peptic ulcer disease or any stigmata of chronic liver failure at this point. Patient has spent 24 hours in the intensive care unit. No evidence of any acute bleeding. Hemoglobin is down to 9.7. Gastroenterology evaluated the patient and a plan to endoscope this patient later stage. No immediate endoscopy to be done today. No further episodes of bleeding was noted. The patient is hemodynamically stable. 2 chronic atrial fibrillation. He is also on Coreg for rate control. 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 Rule out underlying drug encephalopathy. 10 thrombocytopenia, likely related to chronic alcohol ingestion 11 recent authorization for an acute kidney injury/dehydration from which the patient has recovered Plan Patient is stable. Continue same treatment. Move to the medical floor. We'll continue to follow along with aggressive the consultants. No signs of delirium tremens. Hemodynamically stable. No aspiration. Cardiac rhythm is A. fib yet stable. No anticoagulants for now. No signs of any acute GI bleed.
[2016-12-13 15:40] LABS: Anion Gap 7 mmol/L; Blood Urea Nitrogen 21 mg/dL (9-20); Carbon Dioxide 22 mmol/L (22-30); Chloride 115 mmol/L (98-107); Glucose 98 mg/dL (74-99); Non-African American GFR(MDRD) >60 (>60 ml/min/1.73 sqM); Potassium 3.5 mmol/L (3.5-5.1); Sodium 144 mmol/L (137-145)
[2016-12-13 18:21] LABS: Phosphorous 2.9 mg/dL (2.5-4.5)
--- NOTE | 2016-12-13 20:02 | P.PN ---
Subjective Progress note being dictated for Dr. Mix 76-year-old admitted secondary to drug use and altered mental status secondary to that. Patient mental status improved yesterday morning but patient was more confused last night and was agitated. Patient has hemorrhoids, also had coffee- ground emesis last night. Patient is comparing of abdominal pain and does have tenderness in the left lower quadrant. Unfortunately I'm unable to obtain any CAT scan at this time because of his kidney function. Gastroenterology will be consulted. Patient was started on Protonix I still do not have any labs available at this point of time. Patient will be continued on IV normal saline. Patient denied any cough, new focal weakness, fever, dysuria. Patient is more oriented now. 12/13/16 hemoglobin decreased to 9.7, electrolytes being replaced. no further bloody stools; last night had tarry appearing stool. Denies abdominal discomfort or pain. No DTs. Telemetry A. fib with controlled ventricular rate , currently off of anticoagulants. Evaluated by GI, recommendations noted including diet advancement to clears, potential scope pending. Afebrile. Objective - Vital Signs Vital signs: Vital Signs Temp 99.3 F 12/13/16 16:00 Pulse 93 12/13/16 16:00 Resp 20 12/13/16 16:00 BP 140/89 12/13/16 16:00 Pulse Ox 97 12/13/16 16:00 Intake & Output 12/12/16 12/13/16 12/13/16 18:59 06:59 18:59 Intake Total 1140 1420 2380 Output Total 410 390 620 Balance 730 1030 1760 Weight 77.111 kg 78 kg Intake: IV 1200 1200 Sodium Chloride 0.9% 1, 1200 1200 000 ml @ 120 mls/hr IV . Q8H20M [facility] Rx#:[id number] Intake, IV Titration 3680 555 4932 Amount Levofloxacin 500Mg-D5w 100 100 Pmx 500 mg In Dextrose/ Water 1 100ml.bag @ 100 mls/hr IVPB Q24H [facility] Rx#: [id number] Magnesium Sulfate-D5w Pmx 300 1 gm In Dextrose/Water 1 100ml.bag @ 100 mls/hr IVPB Q1H [facility] Rx#: [id number] Sodium Chloride 0.9% 1, 840 120 000 ml @ 120 mls/hr IV . Q8H20M [facility] Rx#:[id number] Sodium Phosphate 10 mmol 500 In Sodium Chloride 0.9% 250 ml @ 125 mls/hr IVPB Q2H [facility] Rx#:[id number] metroNIDAZOLE-NS PMX 500 200 100 200 mg In Saline 1 100ml.bag @ 100 mls/hr IVPB Q8HR [facility] Rx#:[id number] Oral 80 Output: Urine 260 240 620 Stool 150 150 Other: Voiding Method Urinal Urinal Urinal # Voids 1 1 # Bowel Movements 1 1 - Exam GENERAL: The patient is alert confused and oriented 3, no acute distress. Well developed, well nourished. HEENT: Pupils are round and equally reacting to light. EOMI. No scleral icterus. No conjunctival pallor. Normocephalic, atraumatic. CARDIOVASCULAR: S1 and S2 present. No murmurs, rubs, or gallops. PULMONARY: Chest is clear to auscultation, no wheezing or crackles. ABDOMEN: Soft, nontender, nondistended, normoactive bowel sounds. No palpable organomegaly. MUSCULOSKELETAL: No joint swelling or deformity. EXTREMITIES: No cyanosis, clubbing, or pedal edema. NEUROLOGICAL: Gross neurological examination did not reveal any focal deficits. SKIN: No rashes. - Labs CBC & Chem 7: 12/13/16 06:38 12/13/16 15:26 Labs: Abnormal Lab Results - Last 24 Hours (Table) 12/12/16 12/13/16 12/13/16 Range/Units 17:47 06:38 06:38 WBC 11.2 H (3.8-10.6) k/uL RBC 3.32 L 3.00 L (4.30-5.90) m/uL Hgb 11.2 L 9.7 L D (13.0-17.5) gm/dL Hct 32.5 L 29.8 L (39.0-53.0) % Plt Count 86 L 89 L (150-450) k/uL Neutrophils # (Manual) 8.40 H (1.3-7.7) k/uL Lymphocytes # (Manual) 0.78 L (1.0-4.8) k/uL Monocytes # (Manual) 2.02 H (0-1.0) k/uL Potassium 3.4 L (3.5-5.1) mmol/L Chloride 114 H (98-107) mmol/L Carbon Dioxide 21 L (22-30) mmol/L BUN 24 H (9-20) mg/dL Glucose 125 H (74-99) mg/dL Calcium 7.9 L (8.4-10.2) mg/dL Phosphorus 1.5 L (2.5-4.5) mg/dL Magnesium 1.2 L (1.6-2.3) mg/dL Total Protein 4.8 L (6.3-8.2) g/dL Albumin 2.2 L (3.5-5.0) g/dL 12/13/16 Range/Units 15:26 WBC (3.8-10.6) k/uL RBC (4.30-5.90) m/uL Hgb (13.0-17.5) gm/dL Hct (39.0-53.0) % Plt Count (150-450) k/uL Neutrophils # (Manual) (1.3-7.7) k/uL Lymphocytes # (Manual) (1.0-4.8) k/uL Monocytes # (Manual) (0-1.0) k/uL Potassium (3.5-5.1) mmol/L Chloride 115 H (98-107) mmol/L Carbon Dioxide (22-30) mmol/L BUN 21 H (9-20) mg/dL Glucose (74-99) mg/dL Calcium 8.0 L (8.4-10.2) mg/dL Phosphorus (2.5-4.5) mg/dL Magnesium (1.6-2.3) mg/dL Total Protein (6.3-8.2) g/dL Albumin (3.5-5.0) g/dL Assessment and Plan Plan: #1 altered mental status: Secondary to metabolic and toxic encephalopathy: Toxic encephalopathy is due to IV drug use. Patient is positive for hepatitis C. #2 acute renal failure: Probably prerenal azotemia although nonoliguric acute tubular necrosis cannot be ruled out. Patient was on 1 25 mL of normal saline which will be continued. Patient's baseline creatinine is around 0.9 from his previous hospitalizations. I do not have any labs from today morning. #3 alcohol abuse, heroine use and possible cocaine use: Counseling was provided regarding these. #4 elevated liver enzymes: Probably due to medications and drug abuse as mentioned above are alcohol abuse as mentioned above. Will monitor. #5 CVA or TIA in the past. #6 essential hypertension #7 glaucoma #8 coffee-ground emesis and hemorrhoids: Patient was started on Protonix gastroneurology will be consulted #9 abdominal pain and tenderness in the left lower quadrant: Probably related to constipation and hemorrhoids, other differential being diverticulitis. Will monitor for now if kidney function improves will obtain a CAT scan of the abdomen with contrast. Awaiting today morning labs. Plan: Continue on current medication regime, PPI, monitoring and symptomatic treatment. Close monitoring of CBC as patient's hemoglobin dropped by nearly 2 g. No endoscopy planned for tomorrow as per GI. Transfer out of the ICU. Further recommendations to follow. The impression and plan of care has been dictated as directed. : I performed a H&P examination of this patient and discussed the same with the dictator. I agree with the dictator's note. Any additional findings/opinions/ etc. will be noted.
--- NOTE | 2016-12-13 21:06 | P.CONS ---
History of Present Illness - Reason for Consult Consult date: 12/13/16 GI bleeding - History of Present Illness 76-year-old male who was brought to the ER by EMS after he was found in the gallegos behind the house found to have altered mental status. Since admission his altered mental status improved significantly. Apparently he has been using alcohol and IV heroine. Patient's urine drug screen is positive for cocaine and opiates. The patient was passing maroon colored stools and his Hb dropped. We were asked to see him for GI bleeding. Denied dyshagia, odynophagia, chest pain or abdominal pain. No prior diagnosis of liver disease. No heartburn or hematemesis. Review of Systems 12 point ROS is, otherwise, negative Past Medical History Past Medical History: Atrial Fibrillation, Asthma, CVA/TIA, Eye Disorder, GERD/ Reflux, Hyperlipidemia, Hypertension, Osteoarthritis (OA), Prostate Disorder Additional Past Medical History / Comment(s): Bronchial asthma, chronic atrial fibrillation, glaucoma, alcoholism, polysubstance abuse including heroin and cocaine, hepatitis C positive, CVA/TIA 2, acid reflux, hyperlipidemia, osteoarthritis, BPH, hypertension History of Any Multi-Drug Resistant Organisms: None Reported Past Surgical History: Back Surgery, Joint Replacement, Prostate Surgery Additional Past Surgical History / Comment(s): Left total knee surgery, lower lumbar surgery, lumbar pain injections, TURP, colonoscopy, cataracts removed bilaterally. Surgery for a hernia and intra-abdominal surgery for bowel resection felt to be related to a previous bowel obstruction. Past Anesthesia/Blood Transfusion Reactions: No Reported Reaction Smoking Status: Never smoker Past Drug Use History: Cocaine, Heroin - Past Family History Father Family Medical History: Cancer Additional Family Medical History / Comment(s): colon cancer Mother Family Medical History: Myocardial Infarction (VT) Brother(s) Family Medical History: Myocardial Infarction (VT) Medications and Allergies Home Medications Medication Instructions Recorded Confirmed Type Aspirin EC [Ecotrin Low Dose] 81 mg PO DAILY 02/13/16 12/11/16 History Gabapentin [Neurontin] 300 mg PO HS 02/13/16 12/11/16 History Pravastatin Sodium [Pravachol] 20 mg PO HS 07/26/16 12/11/16 History Ranitidine HCl 300 mg PO HS 07/26/16 12/11/16 History Brimonidine Tartrate [Alphagan P 1 drop BOTH EYES BID 07/27/16 12/11/16 History 0.2% Ophth Soln] Carvedilol [Coreg] 3.125 mg PO BID 07/27/16 12/11/16 History Dorzolamide HCl [Trusopt 2%] 1 drop BOTH EYES BID 07/27/16 12/11/16 History Tamsulosin HCl [Flomax] 0.4 cap PO DAILY 07/27/16 12/11/16 History Timolol [Betimol 0.5% Ophth Soln] 1 drop BOTH EYES BID 07/27/16 12/11/16 History Fluticasone Nasal Barry [Flonase 2 spr EA NOSTRIL DAILY 10/11/16 12/11/16 History Nasal Barry] Multivitamins, Thera [Multivitamin 1 tab PO DAILY@1200 10/11/16 12/11/16 History (formulary)] Albuterol Inhaler [Ventolin Hfa 1 - 2 puff INHALATION RT-Q6H PRN 12/11/16 History Inhaler] Albuterol Nebulized [Ventolin 2.5 mg INHALATION RT-QID PRN 12/11/16 12/11/16 History Nebulized] HYDROcodone/APAP 5-325MG [[place]han 1 tab PO Q6HR PRN 12/11/16 12/11/16 History 5-325] Lisinopril [Zestril] 10 mg PO DAILY 12/11/16 12/11/16 History PARoxetine [Paxil] 20 mg PO DAILY 12/11/16 12/11/16 History Allergies Allergy/AdvReac Type Severity Reaction Status Date / Time iodine Allergy Unknown Verified 12/10/16 19:01 Physical Exam Vitals: Vital Signs Temp Pulse Pulse Resp BP Pulse Ox 12/13/16 20:39 124 H 12/13/16 20:23 115 H 12/13/16 19:00 98 20 143/94 97 12/13/16 18:00 96 18 144/81 97 12/13/16 17:00 105 H 21 158/86 98 12/13/16 16:00 99.3 F 93 20 140/89 97 12/13/16 15:55 96 21 12/13/16 15:00 101 H 21 125/79 98 12/13/16 14:00 113 H 24 135/78 97 12/13/16 13:00 86 15 131/82 100 12/13/16 12:59 78 12/13/16 12:50 91 12/13/16 12:00 98.7 F 97 93 21 127/90 98 12/13/16 11:00 101 H 21 128/83 98 12/13/16 10:00 123 H 18 124/94 96 12/13/16 09:00 105 H 18 135/85 98 12/13/16 08:00 98.2 F 98 121 H 14 140/82 98 12/13/16 07:24 98 12/13/16 07:16 104 H 12/13/16 07:00 92 15 116/78 99 12/13/16 06:00 101 H 27 H 114/79 97 12/13/16 05:00 106 H 19 139/84 97 12/13/16 04:00 109 H 121 H 21 135/76 97 12/13/16 03:00 98.7 F 112 H 17 123/79 98 12/13/16 02:00 109 H 19 135/81 98 12/13/16 01:00 148 H 19 127/82 97 12/13/16 00:00 100.2 F H 128 H 121 H 19 133/77 97 12/12/16 23:39 103 H 18 133/77 98 12/12/16 23:00 105 H 18 127/85 97 12/12/16 22:00 120 H 25 H 139/87 99 12/12/16 21:00 136 H 23 124/79 98 Intake and Output 12/13/16 12/13/16 12/13/16 06:59 14:59 22:59 Intake Total 940 2040 950 Output Total 150 400 220 Balance 790 1640 730 Intake: IV 840 960 600 Sodium Chloride 0.9% 1, 840 960 600 000 ml @ 120 mls/hr IV . Q8H20M [facility] Rx#:[id number] Intake, IV Titration 100 1000 100 Amount Levofloxacin 500Mg-D5w 100 Pmx 500 mg In Dextrose/ Water 1 100ml.bag @ 100 mls/hr IVPB Q24H [facility] Rx#: [id number] Magnesium Sulfate-D5w Pmx 300 1 gm In Dextrose/Water 1 100ml.bag @ 100 mls/hr IVPB Q1H [facility] Rx#: [id number] Sodium Phosphate 10 mmol 500 In Sodium Chloride 0.9% 250 ml @ 125 mls/hr IVPB Q2H [facility] Rx#:[id number] metroNIDAZOLE-NS PMX 500 100 100 100 mg In Saline 1 100ml.bag @ 100 mls/hr IVPB Q8HR [facility] Rx#:[id number] Oral 80 250 Output: Urine 400 220 Stool 150 Other: Voiding Method Urinal Urinal Urinal # Voids 1 Weight 78 kg PHYSICAL EXAMINATION: GENERAL: The patient is stated age, WD, WN, alert in no acute distress HEENT: Pupils are round and equally reacting to light. EOMI. No scleral icterus. No conjunctival pallor. Normocephalic, atraumatic. No pharyngeal erythema. No thyromegaly. CARDIOVASCULAR: S1 and S2 present. No murmurs, rubs, or gallops. PULMONARY: Chest is clear to auscultation, no wheezing or crackles. ABDOMEN: Soft, tenderness in the left lower quadrant, nondistended, normoactive bowel sounds. No palpable organomegaly. MUSCULOSKELETAL: No joint swelling or deformity. EXTREMITIES: No cyanosis, clubbing, or pedal edema. NEUROLOGICAL: Gross neurological examination did not reveal any focal deficits. SKIN: No rashes. Results CBC & Chem 7: 12/13/16 06:38 12/13/16 15:26 Labs: Abnormal Lab Results - Last 24 Hours (Table) 12/13/16 12/13/16 12/13/16 Range/Units 06:38 06:38 15:26 RBC 3.00 L (4.30-5.90) m/uL Hgb 9.7 L D (13.0-17.5) gm/dL Hct 29.8 L (39.0-53.0) % Plt Count 89 L (150-450) k/uL Potassium 3.4 L (3.5-5.1) mmol/L Chloride 114 H 115 H (98-107) mmol/L Carbon Dioxide 21 L (22-30) mmol/L BUN 24 H 21 H (9-20) mg/dL Glucose 125 H (74-99) mg/dL Calcium 7.9 L 8.0 L (8.4-10.2) mg/dL Phosphorus 1.5 L (2.5-4.5) mg/dL Magnesium 1.2 L (1.6-2.3) mg/dL Total Protein 4.8 L (6.3-8.2) g/dL Albumin 2.2 L (3.5-5.0) g/dL Assessment and Plan Plan: 76-year old male with GI bleeding and anemia. Likely lower GI bleed. Upper source cannot be excluded. Will allow clear liquids today. Consider EGD/colonoscopy in the next 24-48 hours based on his course.
[2016-12-13] MEDS: traMADol 50 MG TAB PO PRN (21:20)
[2016-12-13] MEDS: GABAPENTIN 300 MG CAP PO SCH (21:20)
[2016-12-14] MEDS: metroNIDAZOLE-NS PMX 500 MG in SALINE 1 100ML.BAG IVPB SCH ×3 (00:30→16:58)
[2016-12-14] MEDS: FLUTICASONE 50MCG/SPRAY NASAL 16GM EA NOSTRIL PRN ×2 (03:48→19:30)
[2016-12-14 04:53] LABS: CHCM 32.7; HCT 29.5 % (39.0-53.0); HGB 9.6 gm/dL (13.0-17.5); MCH 32.9 pg (25.0-35.0); MCHC 32.5 g/dL (31.0-37.0); MCV 101.1 fL (80.0-100.0); Macrocytosis Slight; Mean Platelet Volume 8.5; RBC 2.92 m/uL (4.30-5.90); RDW 15.5 % (11.5-15.5); WBC 8.6 k/uL (3.8-10.6)
[2016-12-14 05:08] LABS: Anion Gap 9 mmol/L; Blood Urea Nitrogen 17 mg/dL (9-20); Calcium 7.8 mg/dL (8.4-10.2); Carbon Dioxide 22 mmol/L (22-30); Chloride 112 mmol/L (98-107); Glucose 85 mg/dL (74-99); Magnesium 1.6 mg/dL (1.6-2.3); Non-African American GFR(MDRD) >60 (>60 ml/min/1.73 sqM); Phosphorous 2.8 mg/dL (2.5-4.5); Potassium 3.4 mmol/L (3.5-5.1); Sodium 143 mmol/L (137-145)
[2016-12-14] MEDS ORDERED: Magnesium Replacement Protocol 1 EACH MISC MISCELLANE PRN (05:46)
[2016-12-14] MEDS ORDERED: Potassium Replacement Protocol 1 EACH MISC MISCELLANE PRN (05:46)
[2016-12-14] MEDS: MAGNESIUM SULFATE-D5W PMX 1 GM in DEXTROSE/WATER 1 100ML.BAG IVPB SCH ×2 (06:33→08:45)
[2016-12-14] MEDS: POTASSIUM CHLORIDE ER 20 MEQ TAB.ER PO SCH ×2 (06:33→08:45)
[2016-12-14] MEDS: traMADol 50 MG TAB PO PRN ×3 (06:56→19:23)
[2016-12-14] MEDS: ALBUTEROL NEBULIZED 2.5 MG/3 ML INHALATION SCH ×3 (07:06→20:38)
[2016-12-14] MEDS: CARVEDILOL 3.125 MG TAB PO SCH ×2 (08:46→16:57)
[2016-12-14] MEDS: SODIUM CHLORIDE 0.9% 1,000 ML IV SCH ×2 (08:46→19:20)
[2016-12-14] MEDS: BRIMONIDINE TARTRATE 0.2% DROPS 5 ML BTL BOTH EYES SCH ×2 (08:47→22:57)
[2016-12-14] MEDS: HYDROCORTISONE SUPPOSITORY 25 MG SUPP RECTAL SCH ×2 (08:47→22:58)
[2016-12-14] MEDS: TIMOLOL 0.5% OPHTH DROPS 5 ML BTL BOTH EYES SCH (08:47)
[2016-12-14] MEDS: DORZOLAMIDE HCL 2% DROPS 10 ML BTL BOTH EYES SCH ×2 (08:47→22:57)
[2016-12-14] MEDS: BENZOCAINE 20% HEMORRHOIDAL OINT 28GM RECTAL SCH ×2 (08:47→22:57)
[2016-12-14] MEDS: TAMSULOSIN 0.4 MG CAP.ER.24H PO SCH (08:48)
[2016-12-14] MEDS: PARoxetine 20 MG TAB PO SCH (08:49)
[2016-12-14] MEDS: PANTOPRAZOLE 40 MG/10 ML VIAL IVP SCH ×2 (08:50→22:58)
[2016-12-14] MEDS: MULTIVITAMINS, THERA 1 EACH TAB PO SCH (13:03)
--- NOTE | 2016-12-14 15:04 | P.PN ---
Subjective A 76-year-old -[place] male patient who used to live in [place] and currently is residing in [facility]. The patient was brought into the MRSA problem yesterday. EMS as the patient was found in the gallegos in the back of his house unresponsive. He was reported to have altered mental status. Upon further inquiry it seems that the patient was doing drugs. He admits for doing heroin in the past and his urine drug screen is also positive for cocaine. He is also an alcoholic and he drinks approximately a pint of hard liquor on a daily basis. He has bronchial asthma and chronic atrial fibrillation.. He has had previous CVA 2 and he is also known to have hypertension and hyperlipidemia and chronic back pain for which she has received lumbar spine injections. The patient also reported some abdominal pain. It was hard to elicit the details of his abdominal pain based on his altered mentation. He was brought into the emergency department with a CAT scan of the brain was done and showed diffuse brain atrophy. No acute intracranial bleed or CVA. Urine drug screen was positive for opiates and cocaine. His alcohol level was less than 10. Is Tylenol level was negative. Salicylates were negative. The rest of the urine drug screen was also negative. Chest x-ray was free of any pulmonary infiltrates. The patient was admitted to the medical floor and this afternoon the patient had a large maroon colored bowel movements. He was also noted to be tachycardic and his atrial fibrillation went into rapid ventricular response. It was noted that his heart rate was as high as 146 and subsequently dropped down to 170 with fluid resuscitation. The patient is currently on normal saline infusion at the rate of 1 20 mL an hour. He is diabetic rhythm is still atrial fibrillation yet less tachycardic as mentioned. His last bowel movement was at 2 PM and this was again maroon color. His initial hemoglobin was at 14.5 and subsequently dropped down to 12.3. Coags including PT/INR are within normal limits. Abdomen is nondistended. No nausea. No vomiting. No hematemesis. No ascites. No stigmata of chronic liver failure despite his chronic alcoholism. In fact his mental status is improved and he was able to answer all my questions appropriately without any major difficulties. He denied having any chest pain. No shortness of breath. No dizziness at this point. GI has been consulted. The patient also tested positive for anti-hepatitis C IgG. On 12/13/2016 the patient is being seen in follow-up. Awake and alert. No change in mental status. No respiratory distress. No active bleeding. Gastro pathology saw the patient there are no plans for scoping this patient today. No signs of any delirium tremens. The patient is hemodynamic is stable. No respiratory distress. No aspiration. No fever. No chills no signs of septicemia. No other significant events overnight. Hemoglobin dropped down to 9.7. The patient is seen again today 12/14/2016 in follow-up in the intensive care unit. He remains awake and alert. He is oriented 3. He has not had any further GI bleeding noted. His hemoglobin is stable at 9.6. He remains hemodynamically stable. He is maintaining O2 saturations in the upper 90s on room air. Objective - Vital Signs Vital signs: Vital Signs Temp 99.2 F 12/14/16 12:00 Pulse 122 H 12/14/16 12:54 Resp 18 12/14/16 12:00 BP 148/107 12/14/16 12:00 Pulse Ox 96 12/14/16 12:00 Intake & Output 12/13/16 12/14/16 12/14/16 18:59 06:59 18:59 Intake Total 2870 480 Output Total 620 820 345 Balance 2250 -340 -345 Intake: IV 1440 480 Sodium Chloride 0.9% 1, 1440 480 000 ml @ 120 mls/hr IV . Q8H20M [facility]ATO Rx#:[id number] Intake, IV Titration 1100 Amount Levofloxacin 500Mg-D5w 100 Pmx 500 mg In Dextrose/ Water 1 100ml.bag @ 100 mls/hr IVPB Q24H [facility] Rx#: [id number] Magnesium Sulfate-D5w Pmx 300 1 gm In Dextrose/Water 1 100ml.bag @ 100 mls/hr IVPB Q1H [facility] Rx#: [id number] Sodium Phosphate 10 mmol 500 In Sodium Chloride 0.9% 250 ml @ 125 mls/hr IVPB Q2H [facility] Rx#:[id number] metroNIDAZOLE-NS PMX 500 200 mg In Saline 1 100ml.bag @ 100 mls/hr IVPB Q8HR [facility]ATO Rx#:[id number] Oral 330 Output: Urine 620 820 345 Other: Voiding Method Urinal Urinal Urinal # Voids 1 # Bowel Movements 1 - Exam Thin, frail, elderly, malnourished, nonacute distress.Head exam was generally normal. There was no scleral icterus or corneal arcus. Mucous membranes were moist. Neck is supple and there is no JVDs no goiter or neck masses. Lungs sounds are diminished bilaterally otherwise clear. Heart sounds are irregular, possible sinus and there is no significant murmurs appreciated. Abdomen is soft and nontender. There is no ascites. There is a irregular scar in the right upper quadrant area and there is a mid abdominal scar below the umbilicus related to a previous bowel resection. No direct tenderness no rebound tenderness. No guarding. No hernias felt.Examination of the extremities revealed easily palpable radial, femoral and pedal pulses. There was no cyanosis , clubbing or edema. Neurologically the patient is awake and alert and following commands and he has no focal neurological deficit at this point. - Labs CBC & Chem 7: 12/14/16 04:27 12/14/16 04:27 Labs: Abnormal Lab Results - Last 24 Hours (Table) 12/13/16 12/14/16 12/14/16 Range/Units 15:26 04:27 04:27 RBC 2.92 L (4.30-5.90) m/uL Hgb 9.6 L (13.0-17.5) gm/dL Hct 29.5 L (39.0-53.0) % MCV 101.1 H (80.0-100.0) fL Plt Count 101 L (150-450) k/uL Potassium 3.4 L (3.5-5.1) mmol/L Chloride 115 H 112 H (98-107) mmol/L BUN 21 H (9-20) mg/dL Calcium 8.0 L 7.8 L (8.4-10.2) mg/dL Assessment and Plan Plan: Assessment 1 bright red blood per rectum, rule out lower GI bleeding. Upper GI bleeding cannot be completely excluded knowing that the patient has history of alcoholism. Nevertheless, no peptic ulcer disease or any stigmata of chronic liver failure at this point. Patient has spent 48 hours in the intensive care unit. No evidence of any acute bleeding. Hemoglobin is down to 9.6. Gastroenterology evaluated the patient and a plan to endoscope this patient later stage. No further episodes of bleeding was noted. The patient is hemodynamically stable. 2 chronic atrial fibrillation. He is also on Coreg for rate control. 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 Rule out underlying drug encephalopathy. 10 thrombocytopenia, likely related to chronic alcohol ingestion 11 recent authorization for an acute kidney injury/dehydration from which the patient has recovered Plan The patient is seen again today by Dr. Reddy in the intensive care unit. He is stable from the pulmonary and critical care standpoint he could be moved out to the regular medical floor today. We'll follow with the patient on as-needed basis.
--- NOTE | 2016-12-14 17:28 | P.PN ---
Subjective 76-year-old admitted secondary to drug use and altered mental status secondary to that. Patient mental status improved yesterday morning but patient was more confused last night and was agitated. Patient has hemorrhoids, also had coffee- ground emesis last night. Patient is comparing of abdominal pain and does have tenderness in the left lower quadrant. Unfortunately I'm unable to obtain any CAT scan at this time because of his kidney function. Gastroenterology will be consulted. Patient was started on Protonix I still do not have any labs available at this point of time. Patient will be continued on IV normal saline. 12/14/2016 Patient did not have any more GI bleed. Patient is quite weak. Because of his recent GI bleed. Patient will be transferred out of ICU. Patient denied any cough, new focal weakness, fever, dysuria. Patient is more oriented now. Objective - Vital Signs Vital signs: Vital Signs Temp 98.5 F 12/14/16 16:12 Pulse 83 12/14/16 16:12 Resp 16 12/14/16 16:12 BP 135/88 12/14/16 16:12 Pulse Ox 96 12/14/16 16:12 Intake & Output 12/13/16 12/14/16 12/14/16 18:59 06:59 18:59 Intake Total 2870 480 Output Total 620 820 345 Balance 2250 -340 -345 Intake: IV 1440 480 Sodium Chloride 0.9% 1, 1440 480 000 ml @ 120 mls/hr IV . Q8H20M [facility]ATO Rx#:[id number] Intake, IV Titration 1100 Amount Levofloxacin 500Mg-D5w 100 Pmx 500 mg In Dextrose/ Water 1 100ml.bag @ 100 mls/hr IVPB Q24H [facility] Rx#: [id number] Magnesium Sulfate-D5w Pmx 300 1 gm In Dextrose/Water 1 100ml.bag @ 100 mls/hr IVPB Q1H [facility] Rx#: [id number] Sodium Phosphate 10 mmol 500 In Sodium Chloride 0.9% 250 ml @ 125 mls/hr IVPB Q2H [facility] Rx#:[id number] metroNIDAZOLE-NS PMX 500 200 mg In Saline 1 100ml.bag @ 100 mls/hr IVPB Q8HR [facility]O Rx#:[id number] Oral 330 Output: Urine 620 820 345 Other: Voiding Method Urinal Urinal Urinal # Voids 1 # Bowel Movements 1 - Exam PHYSICAL EXAMINATION: GENERAL: The patient is alert confused and oriented 2-3, not in any acute distress. Well developed, well nourished. HEENT: Pupils are round and equally reacting to light. EOMI. No scleral icterus. No conjunctival pallor. Normocephalic, atraumatic. No pharyngeal erythema. No thyromegaly. CARDIOVASCULAR: S1 and S2 present. No murmurs, rubs, or gallops. PULMONARY: Chest is clear to auscultation, no wheezing or crackles. ABDOMEN: Soft, tenderness in the left lower quadrant, nondistended, normoactive bowel sounds. No palpable organomegaly. MUSCULOSKELETAL: No joint swelling or deformity. EXTREMITIES: No cyanosis, clubbing, or pedal edema. NEUROLOGICAL: Gross neurological examination did not reveal any focal deficits. SKIN: No rashes. - Labs CBC & Chem 7: 12/14/16 04:27 12/14/16 04:27 Labs: Abnormal Lab Results - Last 24 Hours (Table) 12/14/16 12/14/16 Range/Units 04:27 04:27 RBC 2.92 L (4.30-5.90) m/uL Hgb 9.6 L (13.0-17.5) gm/dL Hct 29.5 L (39.0-53.0) % MCV 101.1 H (80.0-100.0) fL Plt Count 101 L (150-450) k/uL Potassium 3.4 L (3.5-5.1) mmol/L Chloride 112 H (98-107) mmol/L Calcium 7.8 L (8.4-10.2) mg/dL Assessment and Plan Plan: #1 altered mental status: Secondary to metabolic and toxic encephalopathy: Toxic encephalopathy is due to IV drug use. Patient is positive for hepatitis C. #2 acute renal failure: Probably prerenal azotemia although nonoliguric acute tubular necrosis cannot be ruled out. Patient's creatinine improved #3 alcohol abuse, heroine use and possible cocaine use: Counseling was provided regarding these. #4 elevated liver enzymes: Probably due to medications and drug abuse improve liver enzymes #5 CVA or TIA in the past. #6 essential hypertension #7 glaucoma #8 coffee-ground emesis and hemorrhoids: Patient was started on Protonix gastroneurology will be consulted area patient has lower GI bleed possibly a for of upper GI bleed cannot be ruled out. Patient doesn't have any more clinical bleed yesterday and today. Possibly of discharge tomorrow depending on For above-mentioned chronic medical problems patient will be continued on home medications monitor and titrate as needed.
[2016-12-14] MEDS: ONDANSETRON 4 MG/2 ML VIAL IVP PRN (19:24)
[2016-12-14] MEDS: GABAPENTIN 300 MG CAP PO SCH (22:58)
[2016-12-15] MEDS: metroNIDAZOLE-NS PMX 500 MG in SALINE 1 100ML.BAG IVPB SCH ×2 (00:53→11:50)
[2016-12-15] MEDS: POTASSIUM CHLORIDE ER 20 MEQ TAB.ER PO SCH ×2 (00:54→03:42)
[2016-12-15] MEDS: TIMOLOL 0.5% OPHTH DROPS 5 ML BTL BOTH EYES SCH ×3 (00:54→20:38)
[2016-12-15] MEDS: SODIUM CHLORIDE 0.9% 1,000 ML IV SCH ×3 (03:42→23:59)
[2016-12-15] MEDS: traMADol 50 MG TAB PO PRN ×2 (06:28→19:20)
[2016-12-15 07:35] LABS: Magnesium 1.5 mg/dL (1.6-2.3); Potassium 3.7 mmol/L (3.5-5.1)
[2016-12-15] MEDS: ALBUTEROL NEBULIZED 2.5 MG/3 ML INHALATION SCH ×3 (08:27→20:56)
[2016-12-15] MEDS: PANTOPRAZOLE 40 MG/10 ML VIAL IVP SCH (08:32)
[2016-12-15] MEDS: CARVEDILOL 3.125 MG TAB PO SCH ×2 (08:36→18:15)
[2016-12-15] MEDS: PARoxetine 20 MG TAB PO SCH (08:36)
[2016-12-15] MEDS: DORZOLAMIDE HCL 2% DROPS 10 ML BTL BOTH EYES SCH ×2 (08:37→20:38)
[2016-12-15] MEDS: HYDROCORTISONE SUPPOSITORY 25 MG SUPP RECTAL SCH ×2 (08:37→20:38)
[2016-12-15] MEDS: TAMSULOSIN 0.4 MG CAP.ER.24H PO SCH (08:37)
[2016-12-15] MEDS: BENZOCAINE 20% HEMORRHOIDAL OINT 28GM RECTAL SCH ×2 (08:38→20:37)
[2016-12-15] MEDS: BRIMONIDINE TARTRATE 0.2% DROPS 5 ML BTL BOTH EYES SCH ×2 (08:38→20:37)
[2016-12-15] MEDS: MULTIVITAMINS, THERA 1 EACH TAB PO SCH (08:39)
[2016-12-15 11:08] LABS: CH 31.9; CHCM 31.9; HCT 28.8 % (39.0-53.0); HDW 2.34; HGB 9.4 gm/dL (13.0-17.5); MCH 32.6 pg (25.0-35.0); MCHC 32.5 g/dL (31.0-37.0); MCV 100.3 fL (80.0-100.0); Macrocytosis Slight; Mean Platelet Volume 8.4; RBC 2.87 m/uL (4.30-5.90); RDW 15.2 % (11.5-15.5)
[2016-12-15 11:19] LABS: Anion Gap 8 mmol/L; Blood Urea Nitrogen 14 mg/dL (9-20); Carbon Dioxide 20 mmol/L (22-30); Chloride 111 mmol/L (98-107); Glucose 90 mg/dL (74-99); Non-African American GFR(MDRD) >60 (>60 ml/min/1.73 sqM); Sodium 139 mmol/L (137-145)
[2016-12-15] MEDS: MAGNESIUM SULFATE-D5W PMX 1 GM in DEXTROSE/WATER 1 100ML.BAG IVPB SCH ×3 (11:54→13:12)
[2016-12-15] MEDS: LEVOFLOXACIN 500MG-D5W PMX 500 MG in DEXTROSE/WATER 1 100ML.BAG IVPB SCH (13:09)
--- NOTE | 2016-12-15 13:45 | P.PN ---
Subjective A 76-year-old -Pal[place] male patient who used to live in [address] and currently is residing in [facility]. The patient was brought into the MRSA problem yesterday. EMS as the patient was found in the gallegos in the back of his house unresponsive. He was reported to have altered mental status. Upon further inquiry it seems that the patient was doing drugs. He admits for doing heroin in the past and his urine drug screen is also positive for cocaine. He is also an alcoholic and he drinks approximately a pint of hard liquor on a daily basis. He has bronchial asthma and chronic atrial fibrillation.. He has had previous CVA 2 and he is also known to have hypertension and hyperlipidemia and chronic back pain for which she has received lumbar spine injections. The patient also reported some abdominal pain. It was hard to elicit the details of his abdominal pain based on his altered mentation. He was brought into the emergency department with a CAT scan of the brain was done and showed diffuse brain atrophy. No acute intracranial bleed or CVA. Urine drug screen was positive for opiates and cocaine. His alcohol level was less than 10. Is Tylenol level was negative. Salicylates were negative. The rest of the urine drug screen was also negative. Chest x-ray was free of any pulmonary infiltrates. The patient was admitted to the medical floor and this afternoon the patient had a large maroon colored bowel movements. He was also noted to be tachycardic and his atrial fibrillation went into rapid ventricular response. It was noted that his heart rate was as high as 146 and subsequently dropped down to 170 with fluid resuscitation. The patient is currently on normal saline infusion at the rate of 1 20 mL an hour. He is diabetic rhythm is still atrial fibrillation yet less tachycardic as mentioned. His last bowel movement was at 2 PM and this was again maroon color. His initial hemoglobin was at 14.5 and subsequently dropped down to 12.3. Coags including PT/INR are within normal limits. Abdomen is nondistended. No nausea. No vomiting. No hematemesis. No ascites. No stigmata of chronic liver failure despite his chronic alcoholism. In fact his mental status is improved and he was able to answer all my questions appropriately without any major difficulties. He denied having any chest pain. No shortness of breath. No dizziness at this point. GI has been consulted. The patient also tested positive for anti-hepatitis C IgG. On 12/13/2016 the patient is being seen in follow-up. Awake and alert. No change in mental status. No respiratory distress. No active bleeding. Gastro pathology saw the patient there are no plans for scoping this patient today. No signs of any delirium tremens. The patient is hemodynamic is stable. No respiratory distress. No aspiration. No fever. No chills no signs of septicemia. No other significant events overnight. Hemoglobin dropped down to 9.7. The patient is seen again today 12/14/2016 in follow-up in the intensive care unit. He remains awake and alert. He is oriented 3. He has not had any further GI bleeding noted. His hemoglobin is stable at 9.6. He remains hemodynamically stable. He is maintaining O2 saturations in the upper 90s on room air. The patient is seen again today 12/15/2016 in follow-up on the regular medical floor. He is much more awake and alert today as compared to previous. He denies any worsening shortness of breath, cough or congestion. Maintaining good O2 saturations in the 90s on room air. He has not had any further GI bleeding noted. Hemoglobin remained stable at 9.4. Objective - Vital Signs Vital signs: Vital Signs Temp 98.7 F 12/15/16 08:02 Pulse 77 12/15/16 08:02 Resp 16 12/15/16 08:02 BP 136/76 12/15/16 08:02 Pulse Ox 97 12/15/16 08:02 Intake & Output 12/14/16 12/15/16 12/15/16 18:59 06:59 18:59 Output Total 345 Balance -345 Weight 79 kg Output: Urine 345 Other: Voiding Method Urinal Urinal Urinal # Voids 1 # Bowel Movements 1 - Exam Thin, frail, elderly, malnourished, nonacute distress.Head exam was generally normal. There was no scleral icterus or corneal arcus. Mucous membranes were moist. Neck is supple and there is no JVDs no goiter or neck masses. Lungs sounds are diminished bilaterally otherwise clear. Heart sounds are irregular, possible sinus and there is no significant murmurs appreciated. Abdomen is soft and nontender. There is no ascites. There is a irregular scar in the right upper quadrant area and there is a mid abdominal scar below the umbilicus related to a previous bowel resection. No direct tenderness no rebound tenderness. No guarding. No hernias felt.Examination of the extremities revealed easily palpable radial, femoral and pedal pulses. There was no cyanosis , clubbing or edema. Neurologically the patient is awake and alert and following commands and he has no focal neurological deficit at this point. - Labs CBC & Chem 7: 12/15/16 07:03 12/15/16 07:03 Labs: Abnormal Lab Results - Last 24 Hours (Table) 12/15/16 12/15/16 Range/Units 07:03 07:03 RBC 2.87 L (4.30-5.90) m/uL Hgb 9.4 L (13.0-17.5) gm/dL Hct 28.8 L (39.0-53.0) % MCV 100.3 H (80.0-100.0) fL Plt Count 119 L (150-450) k/uL Chloride 111 H (98-107) mmol/L Carbon Dioxide 20 L (22-30) mmol/L Calcium 8.0 L (8.4-10.2) mg/dL Magnesium 1.5 L (1.6-2.3) mg/dL Assessment and Plan Plan: Assessment 1 bright red blood per rectum, rule out lower GI bleeding. Upper GI bleeding cannot be completely excluded knowing that the patient has history of alcoholism. Nevertheless, no peptic ulcer disease or any stigmata of chronic liver failure at this point. Patient has spent 48 hours in the intensive care unit. No evidence of any acute bleeding. Hemoglobin is stable at 9.4. Gastroenterology evaluated the patient and a plan to endoscope this patient later stage. No further episodes of bleeding was noted. The patient is hemodynamically stable. 2 chronic atrial fibrillation. He is also on Coreg for rate control. 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 Rule out underlying drug encephalopathy. 10 thrombocytopenia, likely related to chronic alcohol ingestion 11 recent authorization for an acute kidney injury/dehydration from which the patient has recovered Plan The patient is seen again today by Dr. Reddy. He is stable from the pulmonary and critical care standpoint. The patient is willing to go to inpatient drug rehabilitation center in [place]. We'll see the patient on as-needed basis.
--- NOTE | 2016-12-15 17:31 | P.PN ---
Subjective 76-year-old admitted secondary to drug use and altered mental status secondary to that. Patient mental status improved yesterday morning but patient was more confused last night and was agitated. Patient has hemorrhoids, also had coffee- ground emesis last night. Patient is comparing of abdominal pain and does have tenderness in the left lower quadrant. Unfortunately I'm unable to obtain any CAT scan at this time because of his kidney function. Gastroenterology will be consulted. Patient was started on Protonix I still do not have any labs available at this point of time. Patient will be continued on IV normal saline. 12/14/2016 Patient did not have any more GI bleed. Patient is quite weak. Because of his recent GI bleed. Patient will be transferred out of ICU. 01/15/2017 Patient is quite weak will need subacute rehabilitation placement his hemoglobin remained stable without any more GI bleed. Patient denied any cough, new focal weakness, fever, dysuria. Patient is more oriented now. Objective - Vital Signs Vital signs: Vital Signs Temp 98.5 F 12/15/16 15:51 Pulse 83 12/15/16 15:51 Resp 16 12/15/16 15:51 BP 131/88 12/15/16 15:51 Pulse Ox 94 L 12/15/16 15:51 Intake & Output 12/14/16 12/15/16 12/15/16 18:59 06:59 18:59 Output Total 345 Balance -345 Weight 79 kg Output: Urine 345 Other: Voiding Method Urinal Urinal Urinal # Voids 1 1 # Bowel Movements 1 - Exam PHYSICAL EXAMINATION: GENERAL: The patient is alert confused and oriented 2-3, not in any acute distress. Well developed, well nourished. HEENT: Pupils are round and equally reacting to light. EOMI. No scleral icterus. No conjunctival pallor. Normocephalic, atraumatic. No pharyngeal erythema. No thyromegaly. CARDIOVASCULAR: S1 and S2 present. No murmurs, rubs, or gallops. PULMONARY: Chest is clear to auscultation, no wheezing or crackles. ABDOMEN: Soft, tenderness in the left lower quadrant, nondistended, normoactive bowel sounds. No palpable organomegaly. MUSCULOSKELETAL: No joint swelling or deformity. EXTREMITIES: No cyanosis, clubbing, or pedal edema. NEUROLOGICAL: Gross neurological examination did not reveal any focal deficits. SKIN: No rashes. - Labs CBC & Chem 7: 12/15/16 07:03 12/15/16 07:03 Labs: Abnormal Lab Results - Last 24 Hours (Table) 12/15/16 12/15/16 Range/Units 07:03 07:03 RBC 2.87 L (4.30-5.90) m/uL Hgb 9.4 L (13.0-17.5) gm/dL Hct 28.8 L (39.0-53.0) % MCV 100.3 H (80.0-100.0) fL Plt Count 119 L (150-450) k/uL Chloride 111 H (98-107) mmol/L Carbon Dioxide 20 L (22-30) mmol/L Calcium 8.0 L (8.4-10.2) mg/dL Magnesium 1.5 L (1.6-2.3) mg/dL Assessment and Plan Plan: #1 altered mental status: Secondary to metabolic and toxic encephalopathy: Toxic encephalopathy is due to IV drug use. Patient is positive for hepatitis C. #2 acute renal failure: Probably prerenal azotemia although nonoliguric acute tubular necrosis cannot be ruled out. Patient's creatinine improved #3 alcohol abuse, heroine use and possible cocaine use: Counseling was provided regarding these. #4 elevated liver enzymes: Probably due to medications and drug abuse improve liver enzymes #5 CVA or TIA in the past. #6 essential hypertension #7 glaucoma #8 coffee-ground emesis and hemorrhoids: Patient was started on Protonix gastroneurology will be consulted area patient has lower GI bleed possibly a for of upper GI bleed cannot be ruled out. GI bleed resolved and gastroenterology will plan on outpatient colonoscopy. #9 deconditioning: Patient will need placement to subacute rehabilitation on Saturday. For above-mentioned chronic medical problems patient will be continued on home medications monitor and titrate as needed.
[2016-12-15] MEDS: GABAPENTIN 300 MG CAP PO SCH (20:38)
[2016-12-15] MEDS: FLUTICASONE 50MCG/SPRAY NASAL 16GM EA NOSTRIL PRN (20:39)
[2016-12-16] MEDS: MULTIVITAMINS, THERA 1 EACH TAB PO SCH (07:18)
[2016-12-16] MEDS: TIMOLOL 0.5% OPHTH DROPS 5 ML BTL BOTH EYES SCH ×2 (07:18→22:38)
[2016-12-16] MEDS: TAMSULOSIN 0.4 MG CAP.ER.24H PO SCH (07:18)
[2016-12-16] MEDS: DORZOLAMIDE HCL 2% DROPS 10 ML BTL BOTH EYES SCH ×2 (07:18→22:39)
[2016-12-16] MEDS: PANTOPRAZOLE 40 MG TABLET PO SCH ×2 (07:18→17:34)
[2016-12-16] MEDS: BRIMONIDINE TARTRATE 0.2% DROPS 5 ML BTL BOTH EYES SCH ×2 (07:18→22:39)
[2016-12-16] MEDS: FLUTICASONE 50MCG/SPRAY NASAL 16GM EA NOSTRIL PRN (07:18)
[2016-12-16] MEDS: CARVEDILOL 3.125 MG TAB PO SCH ×2 (07:19→17:31)
[2016-12-16] MEDS: HYDROCORTISONE SUPPOSITORY 25 MG SUPP RECTAL SCH ×2 (07:19→22:38)
[2016-12-16] MEDS: PARoxetine 20 MG TAB PO SCH (07:19)
[2016-12-16] MEDS: BENZOCAINE 20% HEMORRHOIDAL OINT 28GM RECTAL SCH ×2 (07:25→22:40)
[2016-12-16 07:42] LABS: Basophils % (A) 0 %; CH 32.3; CHCM 32.8; Eosinophils % (A) 0 %; HDW 2.44; Luc # (Auto) 0.41; Luc % (Auto) 4; Lymphocytes # (A) 0.7 k/uL (1.0-4.8); Lymphocytes % (A) 6 %; MCH 33.1 pg (25.0-35.0); MCHC 33.4 g/dL (31.0-37.0); MCV 98.9 fL (80.0-100.0); Macrocytosis Slight; Mean Platelet Volume 7.9; Monocytes # (A) 0.9 k/uL (0-1.0); Monocytes % (A) 9 %; Neutrophils # (A) 8.5 k/uL (1.3-7.7); Neutrophils % (A) 81 %; RBC 3.03 m/uL (4.30-5.90); RDW 15.2 % (11.5-15.5); WBC 10.5 k/uL (3.8-10.6)
[2016-12-16 07:50] LABS: Anion Gap 10 mmol/L; Blood Urea Nitrogen 12 mg/dL (9-20); Calcium 7.8 mg/dL (8.4-10.2); Carbon Dioxide 19 mmol/L (22-30); Chloride 107 mmol/L (98-107); Glucose 91 mg/dL (74-99); Non-African American GFR(MDRD) >60 (>60 ml/min/1.73 sqM); Potassium 3.6 mmol/L (3.5-5.1); Sodium 136 mmol/L (137-145)
[2016-12-16] MEDS: ALBUTEROL NEBULIZED 2.5 MG/3 ML INHALATION SCH ×5 (07:50→22:03)
[2016-12-16] MEDS: SODIUM CHLORIDE 0.9% 1,000 ML IV SCH (09:33)
--- NOTE | 2016-12-16 10:30 | P.PN ---
Subjective 76-year-old admitted secondary to drug use and altered mental status secondary to that. Patient mental status improved yesterday morning but patient was more confused last night and was agitated. Patient has hemorrhoids, also had coffee- ground emesis last night. Patient is comparing of abdominal pain and does have tenderness in the left lower quadrant. Unfortunately I'm unable to obtain any CAT scan at this time because of his kidney function. Gastroenterology will be consulted. Patient was started on Protonix I still do not have any labs available at this point of time. Patient will be continued on IV normal saline. 12/14/2016 Patient did not have any more GI bleed. Patient is quite weak. Because of his recent GI bleed. Patient will be transferred out of ICU. 12/15/2016 Patient is quite weak will need subacute rehabilitation placement his hemoglobin remained stable without any more GI bleed. 12/16/2016 Patient is alert oriented 3 but it has been hallucinating since morning. Patient is not on any antipsychotics patient has some anion gap metabolic acidosis because of which I'm opting lactic acid. IV fluids will be discontinued unless lactic acid is elevated. Patient denied any cough, new focal weakness, fever, dysuria. Patient is more oriented now. Objective - Vital Signs Vital signs: Vital Signs Temp 98.3 F 12/16/16 07:00 Pulse 75 12/16/16 08:00 Resp 16 12/16/16 08:00 BP 124/86 12/16/16 07:00 Pulse Ox 97 12/16/16 07:00 Intake & Output 12/15/16 12/16/16 12/16/16 18:59 06:59 18:59 Weight 78.9 kg 78.9 kg Other: Voiding Method Urinal Urinal Urinal # Voids 1 1 - Exam PHYSICAL EXAMINATION: GENERAL: The patient is alert confused and oriented 2-3, not in any acute distress. Well developed, well nourished. HEENT: Pupils are round and equally reacting to light. EOMI. No scleral icterus. No conjunctival pallor. Normocephalic, atraumatic. No pharyngeal erythema. No thyromegaly. CARDIOVASCULAR: S1 and S2 present. No murmurs, rubs, or gallops. PULMONARY: Chest is clear to auscultation, no wheezing or crackles. ABDOMEN: Soft, tenderness in the left lower quadrant, nondistended, normoactive bowel sounds. No palpable organomegaly. MUSCULOSKELETAL: No joint swelling or deformity. EXTREMITIES: No cyanosis, clubbing, or pedal edema. NEUROLOGICAL: Gross neurological examination did not reveal any focal deficits. SKIN: No rashes. - Labs CBC & Chem 7: 12/16/16 07:19 12/16/16 07:19 Labs: Abnormal Lab Results - Last 24 Hours (Table) 12/15/16 12/15/16 12/16/16 Range/Units 07:03 07:03 07:19 RBC 2.87 L 3.03 L (4.30-5.90) m/uL Hgb 9.4 L 10.0 L (13.0-17.5) gm/dL Hct 28.8 L 30.0 L (39.0-53.0) % MCV 100.3 H (80.0-100.0) fL Plt Count 119 L 142 L (150-450) k/uL Neutrophils # 8.5 H (1.3-7.7) k/uL Lymphocytes # 0.7 L (1.0-4.8) k/uL Sodium (137-145) mmol/L Chloride 111 H (98-107) mmol/L Carbon Dioxide 20 L (22-30) mmol/L Calcium 8.0 L (8.4-10.2) mg/dL Magnesium 1.5 L (1.6-2.3) mg/dL 12/16/16 Range/Units 07:19 RBC (4.30-5.90) m/uL Hgb (13.0-17.5) gm/dL Hct (39.0-53.0) % MCV (80.0-100.0) fL Plt Count (150-450) k/uL Neutrophils # (1.3-7.7) k/uL Lymphocytes # (1.0-4.8) k/uL Sodium 136 L (137-145) mmol/L Chloride (98-107) mmol/L Carbon Dioxide 19 L (22-30) mmol/L Calcium 7.8 L (8.4-10.2) mg/dL Magnesium (1.6-2.3) mg/dL Assessment and Plan Plan: #1 altered mental status: Secondary to metabolic and toxic encephalopathy: Toxic encephalopathy is due to IV drug use. Patient is positive for hepatitis C. patient will need to follow gastric body as an outpatient for hepatitis C patient is hallucinating today. Patient does have visual hallucinations. #2 acute renal failure: Probably prerenal azotemia although nonoliguric acute tubular necrosis cannot be ruled out. Patient's creatinine improved #3 alcohol abuse, heroine use and possible cocaine use: Counseling was provided regarding these. #4 elevated liver enzymes: Probably due to medications and drug abuse improve liver enzymes number liver enzymes improved #5 CVA or TIA in the past. #6 essential hypertension #7 glaucoma #8 coffee-ground emesis and hemorrhoids: Patient was started on Protonix gastroneurology will be consulted area patient has lower GI bleed possibly a for of upper GI bleed cannot be ruled out. GI bleed resolved and gastroenterology will plan on outpatient colonoscopy. #9 deconditioning: Patient will need placement to subacute rehabilitation on Saturday. For above-mentioned chronic medical problems patient will be continued on home medications monitor and titrate as needed. probably can be discharged to subacute habitation tomorrow. Psychiatrically will be consulted for visual [place] as I cannot find any other cause. Patient does not appear to be septic at this time.
[2016-12-16 14:09] LABS: Glucose,Whole Blood 93 mg/dL (75-99)
[2016-12-16] MEDS ORDERED: SODIUM CHLORIDE 0.9% 1,000 ML IV STA (14:10)
[2016-12-16] MEDS: ACETAMINOPHEN TAB 325 MG TAB PO PRN ×2 (17:31→23:53)
[2016-12-16] MEDS: HALOPERIDOL LACTATE 5 MG/ML 1 ML VIAL IM PRN ×2 (17:57→18:37)
[2016-12-16] MEDS: GABAPENTIN 300 MG CAP PO SCH (22:37)
[2016-12-16] MEDS: QUEtiapine 25 MG TAB PO SCH (22:37)
[2016-12-17] MEDS: ALBUTEROL NEBULIZED 2.5 MG/3 ML INHALATION SCH ×3 (07:21→20:40)
[2016-12-17] MEDS: TAMSULOSIN 0.4 MG CAP.ER.24H PO SCH (07:41)
[2016-12-17] MEDS: CARVEDILOL 3.125 MG TAB PO SCH ×2 (07:41→17:28)
[2016-12-17] MEDS: DORZOLAMIDE HCL 2% DROPS 10 ML BTL BOTH EYES SCH ×2 (07:41→21:26)
[2016-12-17] MEDS: PARoxetine 20 MG TAB PO SCH (07:41)
[2016-12-17] MEDS: PANTOPRAZOLE 40 MG TABLET PO SCH ×2 (07:41→17:28)
[2016-12-17] MEDS: HYDROCORTISONE SUPPOSITORY 25 MG SUPP RECTAL SCH ×2 (07:41→21:25)
[2016-12-17] MEDS: BRIMONIDINE TARTRATE 0.2% DROPS 5 ML BTL BOTH EYES SCH ×2 (07:42→21:26)
[2016-12-17] MEDS: MULTIVITAMINS, THERA 1 EACH TAB PO SCH (07:42)
[2016-12-17] MEDS: TIMOLOL 0.5% OPHTH DROPS 5 ML BTL BOTH EYES SCH ×2 (07:42→21:26)
[2016-12-17] MEDS: BENZOCAINE 20% HEMORRHOIDAL OINT 28GM RECTAL SCH (07:46)
[2016-12-17 13:44] VITALS: BMI 22.6
[2016-12-17] MEDS: traMADol 50 MG TAB PO PRN (15:00)
[2016-12-17] MEDS: ONDANSETRON 4 MG/2 ML VIAL IVP PRN ×2 (15:04→21:39)
--- NOTE | 2016-12-17 19:07 | CONS ---
PSYCHIATRIC CONSULTATION: PURPOSE OF CONSULTATION: Evaluate for altered mental status, hallucinations and substance use issues. HISTORY OF PRESENTING ILLNESS: The patient is a 76-year-old male. He was admitted to the medical floor after he had been [place] in an altered mental state. He was disoriented. He had been using alcohol, cocaine and apparently heroin. When he was found and EMS were called they noted him to be unresponsive. He has had improvement in mental status with improved orientation. He has had some periods where he will get into a confused state. It appears that this has happened more in the evening time than other times of the day. At other periods he can be alert, he will be responsive and is generally aware of his situation and circumstances. Nursing has noted that he has had some episodes of hallucinations. He will describe seeing people in his room and says that when he gets up and goes to them they simply will disappear. He has had some episodes of agitation including getting agitated and combative yesterday in the afternoon. When I talked to the patient today he said that, in fact, he had left the hospital with some staff. He was at a remote place by his report. Someone had asked to take his cane away because they felt he might use it as a weapon. He said that he was surprised when his sister told him that that, in fact, did not happen though he still has vivid recollections of it. He notes that he may see images, mainly when he is laying in bed and possibly drifting off to sleep. He says he has had more of these issues in the evening time though nursing have been aware of problems he has had at different times of the day including later in the morning. Patient notes that he has had halfway use of alcohol. He said he had a 10 year stretch in his 40's and 50's when he was not drinking at all. Part of that related to work demands that he had. He said he felt good during that period of time. He started drinking again about 15 years ago when his . He says his general use of alcohol is about half a pint per day. He says that when he wakes up in the morning he will drink a small amount of alcohol and then throughout the day he will "sip", drinking throughout the day. He reports no use of other abusive substances other than what was found in his system. He said that a friend had given him some powder that he thought was heroin. He was unaware that he was using cocaine. He was not able to describe how he got out into the [facility]. He did not have recollection about circumstances getting him to the hospital. He reports that he has not had a past history of mood or thought disorder. He reports no current or past history of auditory hallucinations. When I asked him if he was on any psychotropic medications prior to coming into the hospital he did not believe he was though our records indicate he was on Paxil 20 mg a day and Xanax 0.25 mg three times a day p.r.n. He also had been on Neurontin, Hydrocodone and Ultram as other psychoactive medications. The patient reports that he has been sleeping fairly well at night. He understands that he is to be transferred to [facility] and has a positive attitude about going there. He had been admitted to [facility] about two months ago. He was there for 28 day program and said he maintained sobriety for about a month after that. He felt the program was helpful for him. The patient reports no awareness that he has had any past history of seizure disorder or suffered delirium tremens. He does note that when he is withdrawing from alcohol he can get quite significant tremors in his hands. MENTAL STATUS EXAM: The patient was laying in bed. He gave fair eye contact. Psychomotor activity was a little slow. Speech was monotone and soft. He answered questions with direct responses. His thoughts were clear. He was not too spontaneous though he was interactive. His affect was in a reasonable range. He smiled some. His mood was even. He did not appear to be distressed. At the end of the interview he made a joke. There was no indication of thought disorder. ASSESSMENT: This 76-year-old male is diagnosed with acute alcohol withdrawal. His psychiatric history is not fully clear, just based on the patient's own history that he provided. In regards to hallucinations, he may in fact be having hypnagogic hallucinations which may relate to both mood disorder as well as acute alcohol and substance withdrawal. In other words, the patient may be having some decreased REM latency and having a dream state prior to his being fully asleep. He may experience this as visual hallucinations. In fact, his episode of agitation yesterday may have been set off by that. Also, his experience that he left the hospital and was at a distant place may also relate to hypnagogic hallucinations. Vital signs have been stable and he has not shown signs of significant alcohol withdrawal. The hallucinations he is experiencing are not related to delirium tremens. Also, there is no clear indication that he has hallucinations relating to a primary psychiatric disorder. At this point he is doing fairly well overall. His mood seems to be stable. He has not had any difficult behavior today. My understanding is the plan is for him to be transferred possibly today or tomorrow to [facility] for further subacute substance use treatment which is appropriate. It is noted that for hypnagogic hallucinations, low dose tricyclic antidepressant such as Tofranil in the range of 12.5 mg to 50 mg may be affective. Tricyclic antidepressants have the affect of increasing REM latency which allows for improved sleep architecture with dreams occurring more appropriately in stage 4 REM sleep. He might benefit from low dose Clonidine two to three times a day which can help reduce symptoms of alcohol withdrawal. I would look to continue the patient off benzodiazepines. Currently he is prescribed Haldol 3 mg IM q4h p.r.n. It is not likely that he will need to continue use of Haldol. He would be best served to be tapered down and possibly discontinued from opioid pain medications. 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 I will continue to follow. [facility] HEALTHAdrienne
[2016-12-17] MEDS: GABAPENTIN 300 MG CAP PO SCH (21:25)
[2016-12-17] MEDS: QUEtiapine 25 MG TAB PO SCH (21:25)
[2016-12-17 22:51] VITALS: RESP 16; TEMP 98.6
--- NOTE | 2016-12-18 00:20 | P.PN ---
Subjective Principal diagnosis: Alcohol abuse 76-year-old admitted secondary to drug use and altered mental status secondary to that. Patient mental status improved yesterday morning but patient was more confused last night and was agitated. Patient has hemorrhoids, also had coffee- ground emesis last night. Patient is comparing of abdominal pain and does have tenderness in the left lower quadrant. Unfortunately I'm unable to obtain any CAT scan at this time because of his kidney function. Gastroenterology will be consulted. Patient was started on Protonix I still do not have any labs available at this point of time. Patient will be continued on IV normal saline. 12/14/2016 Patient did not have any more GI bleed. Patient is quite weak. Because of his recent GI bleed. Patient will be transferred out of ICU. 12/15/2016 Patient is quite weak will need subacute rehabilitation placement his hemoglobin remained stable without any more GI bleed. 12/16/2016 Patient is alert oriented 3 but it has been hallucinating since morning. Patient is not on any antipsychotics patient has some anion gap metabolic acidosis because of which I'm opting lactic acid. IV fluids will be discontinued unless lactic acid is elevated. 12/17/2016 Patient is more oriented today. Patient was seen was psychiatric and thought to be hypnagogic hallucinations. Otherwise patient denied any fever or chills. No overnight issues. Patient denied any cough, new focal weakness, fever, dysuria. Patient is more oriented now. Objective - Vital Signs Vital signs: Vital Signs Temp 98.6 F 12/17/16 22:51 Pulse 97 12/17/16 22:51 Resp 16 12/17/16 22:51 BP 112/61 12/17/16 22:51 Pulse Ox 97 12/17/16 22:51 Intake & Output 12/17/16 12/17/16 12/18/16 06:59 18:59 06:59 Intake Total 100 Output Total 275 1500 Balance -175 -1500 Weight 75.5 kg 75.5 kg Intake: Oral 100 Output: Urine 125 1500 Stool 150 Other: Voiding Method Urinal Toilet Urinal # Voids 1 1 - Exam GENERAL: The patient is alert confused and oriented 2-3, not in any acute distress. Well developed, well nourished. HEENT: Pupils are round and equally reacting to light. EOMI. No scleral icterus. No conjunctival pallor. Normocephalic, atraumatic. No pharyngeal erythema. No thyromegaly. CARDIOVASCULAR: S1 and S2 present. No murmurs, rubs, or gallops. PULMONARY: Chest is clear to auscultation, no wheezing or crackles. ABDOMEN: Soft, tenderness in the left lower quadrant, nondistended, normoactive bowel sounds. No palpable organomegaly. MUSCULOSKELETAL: No joint swelling or deformity. EXTREMITIES: No cyanosis, clubbing, or pedal edema. NEUROLOGICAL: Gross neurological examination did not reveal any focal deficits. - Labs CBC & Chem 7: 12/16/16 07:19 12/16/16 07:19 Assessment and Plan Plan: #1 altered mental status: Improved. Secondary to metabolic and toxic encephalopathy: Toxic encephalopathy is due to IV drug use. Patient is positive for hepatitis C. patient will need to follow gastric body as an outpatient for hepatitis C patient is hallucinating today. Patient does have visual hallucinations. #2 acute renal failure: Probably prerenal azotemia although nonoliguric acute tubular necrosis cannot be ruled out. Patient's creatinine improved #3 alcohol abuse, heroine use and possible cocaine use: Counseling was provided regarding these. Monitor for alcohol withdrawal symptoms. #4 elevated liver enzymes: Probably due to medications and drug abuse improve liver enzymes number liver enzymes improved #5 CVA or TIA in the past. #6 essential hypertension #7 glaucoma #8 coffee-ground emesis and hemorrhoids: Patient was started on Protonix gastroneurology will be consulted area patient has lower GI bleed possibly a for of upper GI bleed cannot be ruled out. GI bleed resolved and gastroenterology will plan on outpatient colonoscopy. #9 deconditioning: Patient will need placement to subacute rehabilitation on Saturday. For above-mentioned chronic medical problems patient will be continued on home medications monitor and titrate as needed. Possible transfer to rehab versus home with home care in next 24 hours. Time with Patient: Greater than 30
[2016-12-18] MEDS: BENZOCAINE 20% HEMORRHOIDAL OINT 28GM RECTAL SCH ×2 (00:46→08:17)
[2016-12-18] MEDS: traMADol 50 MG TAB PO PRN (06:04)
[2016-12-18] MEDS: ONDANSETRON 4 MG/2 ML VIAL IVP PRN (06:04)
[2016-12-18 07:49] VITALS: BP 112/69; PULSE 105
[2016-12-18] MEDS: ALBUTEROL NEBULIZED 2.5 MG/3 ML INHALATION SCH (08:06)
[2016-12-18] MEDS: TIMOLOL 0.5% OPHTH DROPS 5 ML BTL BOTH EYES SCH (08:17)
[2016-12-18] MEDS: DORZOLAMIDE HCL 2% DROPS 10 ML BTL BOTH EYES SCH (08:18)
[2016-12-18] MEDS: HYDROCORTISONE SUPPOSITORY 25 MG SUPP RECTAL SCH (08:18)
[2016-12-18] MEDS: BRIMONIDINE TARTRATE 0.2% DROPS 5 ML BTL BOTH EYES SCH (08:18)
[2016-12-18] MEDS: PARoxetine 20 MG TAB PO SCH (08:18)
[2016-12-18] MEDS: PANTOPRAZOLE 40 MG TABLET PO SCH (08:18)
[2016-12-18] MEDS: TAMSULOSIN 0.4 MG CAP.ER.24H PO SCH (08:18)
[2016-12-18] MEDS: CARVEDILOL 3.125 MG TAB PO SCH (08:18)
[2016-12-18] MEDS: MULTIVITAMINS, THERA 1 EACH TAB PO SCH (11:12)
--- NOTE | 2016-12-19 00:39 | P.DS ---
Providers Date of admission: 12/10/16 22:22 Expected date of discharge: 12/18/16 Attending physician: Joyce Reddy Consults: 12/12/16 15:31 Consult Physician Routine Consulting Provider: Lisandro Reddy Consult Reason/Comments: ICU care Do you want consulting provider notified?: Already Contacted 12/17/16 09:52 Consult Physician Urgent Consulting Provider: Zac Rebollar Consult Reason/Comments: hallucinations Do you want consulting provider notified?: Yes Primary care physician: Fernando Hernandez [facility] Course: #1 altered mental status: Improved. Secondary to metabolic and toxic encephalopathy: Toxic encephalopathy is due to IV drug use. Patient is positive for hepatitis C. patient will need to follow gastric body as an outpatient for hepatitis C patient is hallucinating today. Patient does have visual hallucinations. #2 acute renal failure: Probably prerenal azotemia although nonoliguric acute tubular necrosis cannot be ruled out. Patient's creatinine improved #3 alcohol abuse, heroine use and possible cocaine use: Counseling was provided regarding these. Monitor for alcohol withdrawal symptoms. #4 elevated liver enzymes: Probably due to medications and drug abuse improve liver enzymes number liver enzymes improved #5 CVA or TIA in the past. #6 essential hypertension #7 glaucoma #8 coffee-ground emesis and hemorrhoids: Patient was started on Protonix gastroneurology will be consulted area patient has lower GI bleed possibly a for of upper GI bleed cannot be ruled out. GI bleed resolved and gastroenterology will plan on outpatient colonoscopy. #9 deconditioning. Improved. Patient was transferred to home with family. 76-year-old admitted secondary to drug use and altered mental status secondary to that. Patient mental status improved yesterday morning but patient was more confused last night and was agitated. Patient has hemorrhoids, also had coffee- ground emesis last night. Patient is comparing of abdominal pain and does have tenderness in the left lower quadrant. Unfortunately I'm unable to obtain any CAT scan at this time because of his kidney function. Gastroenterology will be consulted. Patient was started on Protonix I still do not have any labs available at this point of time. Patient will be continued on IV normal saline. 12/14/2016 Patient did not have any more GI bleed. Patient is quite weak. Because of his recent GI bleed. Patient will be transferred out of ICU. 12/15/2016 Patient is quite weak will need subacute rehabilitation placement his hemoglobin remained stable without any more GI bleed. 12/16/2016 Patient is alert oriented 3 but it has been hallucinating since morning. Patient is not on any antipsychotics patient has some anion gap metabolic acidosis because of which I'm opting lactic acid. IV fluids will be discontinued unless lactic acid is elevated. 12/17/2016 Patient is more oriented today. Patient was seen was psychiatric and thought to be hypnagogic hallucinations. No new medications recommended. Otherwise patient denied any fever or chills. No overnight issues. [id number] Patient denied any cough, new focal weakness, fever, dysuria. Patient is more oriented now. Patient Condition at Discharge: Stable Plan - Discharge Summary New Discharge Prescriptions: New Thiamine [Vitamin B-1] 100 mg PO DAILY #14 tablet Continue Gabapentin [Neurontin] 300 mg PO HS Aspirin EC [Ecotrin Low Dose] 81 mg PO DAILY Ranitidine HCl 300 mg PO HS Pravastatin Sodium [Pravachol] 20 mg PO HS Timolol [Betimol 0.5% Ophth Soln] 1 drop BOTH EYES BID Tamsulosin HCl [Flomax] 0.4 cap PO DAILY Dorzolamide HCl [Trusopt 2%] 1 drop BOTH EYES BID Carvedilol [Coreg] 3.125 mg PO BID Brimonidine Tartrate [Alphagan P 0.2% Ophth Soln] 1 drop BOTH EYES BID Multivitamins, Thera [Multivitamin (formulary)] 1 tab PO DAILY@1200 Fluticasone Nasal Rosepine [Flonase Nasal Rosepine] 2 spr EA NOSTRIL DAILY ALPRAZolam [Xanax] 0.25 mg PO TID PRN #20 tab PRN Reason: Anxiety traMADol HCl [Ultram] 50 mg PO QID PRN #20 tab PRN Reason: Pain HYDROcodone/APAP 5-325MG [Vandiver 5-325] 1 tab PO Q6HR PRN PRN Reason: Pain PARoxetine [Paxil] 20 mg PO DAILY Albuterol Inhaler [Ventolin Hfa Inhaler] 1 - 2 puff INHALATION RT-Q6H PRN PRN Reason: Shortness Of Breath Lisinopril [Zestril] 10 mg PO DAILY Albuterol Nebulized [Ventolin Nebulized] 2.5 mg INHALATION RT-QID PRN PRN Reason: Shortness Of Breath Discharge Medication List Aspirin EC [Ecotrin Low Dose] 81 mg PO DAILY 02/13/16 [History] Gabapentin [Neurontin] 300 mg PO HS 02/13/16 [History] Pravastatin Sodium [Pravachol] 20 mg PO HS 07/26/16 [History] Ranitidine HCl 300 mg PO HS 07/26/16 [History] Brimonidine Tartrate [Alphagan P 0.2% Ophth Soln] 1 drop BOTH EYES BID 07/27/16 [History] Carvedilol [Coreg] 3.125 mg PO BID 07/27/16 [History] Dorzolamide HCl [Trusopt 2%] 1 drop BOTH EYES BID 07/27/16 [History] Tamsulosin HCl [Flomax] 0.4 cap PO DAILY 07/27/16 [History] Timolol [Betimol 0.5% Ophth Soln] 1 drop BOTH EYES BID 07/27/16 [History] Fluticasone Nasal Rose[place] [Flonase Nasal [place]] 2 spr EA NOSTRIL DAILY 10/11/16 [ History] Multivitamins, Thera [Multivitamin (formulary)] 1 tab PO DAILY@1200 10/11/16 [ History] ALPRAZolam [Xanax] 0.25 mg PO TID PRN #20 tab 10/15/16 [Rx] traMADol HCl [Ultram] 50 mg PO QID PRN #20 tab 10/16/16 [Rx] Albuterol Inhaler [Ventolin Hfa Inhaler] 1 - 2 puff INHALATION RT-Q6H PRN [History] Albuterol Nebulized [Ventolin Nebulized] 2.5 mg INHALATION RT-QID PRN 12/11/16 [ History] HYDROcodone/APAP 5-325MG [Vandiver 5-325] 1 tab PO Q6HR PRN 12/11/16 [History] Lisinopril [Zestril] 10 mg PO DAILY 12/11/16 [History] PARoxetine [Paxil] 20 mg PO DAILY 12/11/16 [History] Thiamine [Vitamin B-1] 100 mg PO DAILY #14 tablet 12/17/16 [Rx] Follow up Appointment(s)/Referral(s): Oscar Lugo MD [STAFF PHYSICIAN] - 1 Week Bebe King MD [Primary Care Provider] - 1-2 days Patient Instructions/Handouts: Acute Kidney Injury (DC), Narcotic Abuse (DC) Discharge Disposition: HOME SELF-CARE
--- NOTE | 2016-12-19 13:32 | CONS ---
DATE OF SERVICE: 12/18/2016 PURPOSE FOR CONSULTATION: Evaluate for altered mental status, hallucinations and substance use issues. INTERVAL HISTORY: The patient has been doing fairly well. He had problems with delusional thoughts, visual hallucinations, and experiences of unreality. He had some problems with agitation. Most of the issues had occurred prior to yesterday. Yesterday he was continuing to have some experiences of seeing things that were not there. He did not have any difficult behaviors. He did say that he thought the day before he had left the hospital and had gone to some place distant with some staff from the hospital. This seemed to be part of the delusional thinking that he was having. Nursing reports that today he has not had any clear indications of thinking outside of reality. He has not made any references to seeing things or believing that events happen that in fact did not. He is very much focused on being transferred for follow up care. He had a quiet night. He slept well. He maintains a good mood. He has a good outlook. When I talked to the patient he was sitting up in the chair. He was dressed and well groomed. He gave good eye contact. He smiled. His thoughts were clear. His affect was in a good range. His mood is even. He was not distressed. He was well oriented to current circumstances. ASSESSMENT: I will continue the current diagnosis. It is quite likely the patient was having dream related visions, hallucinations and experiences. It is likely that some of this was set off by the substance use issues that he had leading up to the hospitalization. He seems to be showing good clearing. At this point he does not want medications as it is not likely the experiences he was having were agustin psychotic symptoms, but more related to sleep architecture problems. My understanding is that the patient will be discharged today. He appears to be stable from a psychiatric standpoint. ABRAHAM
== END 2016-12-18 14:12 | disposition home or self-care (01) | DRG 917 ==
LOC: EC 18:54 → 5MS5E 22:22 → 6ICU 12-12 13:28 → 5MS5E 12-14 13:23
PROVIDERS: ADMIT Hospitalist; ATTEND Hospitalist
DX: T40.1X1A Poisoning by heroin, accidental (unintentional), initial encounter (principal); G92 Toxic encephalopathy; N17.0 Acute kidney failure with tubular necrosis; E87.2 Acidosis; D69.6 Thrombocytopenia, unspecified; I48.2 Chronic atrial fibrillation; N18.3 Chronic kidney disease, stage 3 (moderate); F10.239 Alcohol dependence with withdrawal, unspecified; G31.9 Degenerative disease of nervous system, unspecified; I12.9 Hypertensive chronic kidney disease with stage 1 through stage 4 chronic kidney disease, or unspecified chronic kidney disease; B19.20 Unspecified viral hepatitis C without hepatic coma; E78.5 Hyperlipidemia, unspecified; F11.10 Opioid abuse, uncomplicated; F14.10 Cocaine abuse, uncomplicated; G89.29 Other chronic pain; H40.9 Unspecified glaucoma; J45.909 Unspecified asthma, uncomplicated; K21.9 Gastro-esophageal reflux disease without esophagitis; K64.9 Unspecified hemorrhoids; N40.0 Benign prostatic hyperplasia without lower urinary tract symptoms; Z79.899 Other long term (current) drug therapy; Z80.0 Family history of malignant neoplasm of digestive organs; Z82.49 Family history of ischemic heart disease and other diseases of the circulatory system; Z86.73 Personal history of transient ischemic attack (TIA), and cerebral infarction without residual deficits; Z79.82 Long term (current) use of aspirin; Z88.3 Allergy status to other anti-infective agents
CPT/HCPCS: 36415; 70450; 71010; 74000; 80048; 80053; 80074; 80306; 80320; 81001; 82140; 82150; 83520; 83605; 83690; 83735; 84100; 84132; 84484; 85025; 85027; 85610; 93005; 94640; 96361; 96374; 96376; 99285

== ENCOUNTER 2016-12-20 17:34 | Inpatient (IN) | payer MEDICARE, OTHER ==
[2016-12-20] MEDS ORDERED: SODIUM CHLORIDE 0.9% 500 ML IV STA (18:22)
[2016-12-20] MEDS ORDERED: PANTOPRAZOLE 40 MG/10 ML VIAL IVP STA (18:22)
[2016-12-20] MEDS ORDERED: SODIUM CHLORIDE 0.9% 1,000 ML IV STA (18:22)
[2016-12-20 18:50] LABS: Basophils % (A) 0 %; CH 31.7; CHCM 32.3; Eosinophils # (A) 0.1 k/uL (0-0.7); Eosinophils % (A) 1 %; HCT 25.3 % (39.0-53.0); HDW 2.73; Hypochromasia Slight; Luc # (Auto) 0.19; Luc % (Auto) 3; Lymphocytes # (A) 0.9 k/uL (1.0-4.8); Lymphocytes % (A) 12 %; MCH 32.4 pg (25.0-35.0); MCHC 32.8 g/dL (31.0-37.0); MCV 98.8 fL (80.0-100.0); Macrocytosis Slight; Mean Platelet Volume 6.9; Monocytes # (A) 0.7 k/uL (0-1.0); Monocytes % (A) 9 %; Neutrophils # (A) 5.3 k/uL (1.3-7.7); Neutrophils % (A) 74 %; RBC 2.56 m/uL (4.30-5.90); RDW 15.7 % (11.5-15.5); WBC 7.2 k/uL (3.8-10.6)
[2016-12-20 18:53] LABS: HGB 8.3 gm/dL (13.0-17.5)
[2016-12-20 18:54] LABS: ALT 39 U/L (21-72); AST 42 U/L (17-59); Alkaline Phosphatase 94 U/L (38-126); Anion Gap 11 mmol/L; Blood Urea Nitrogen 9 mg/dL (9-20); Calcium 8.1 mg/dL (8.4-10.2); Carbon Dioxide 19 mmol/L (22-30); Chloride 108 mmol/L (98-107); Glucose 97 mg/dL (74-99); Non-African American GFR(MDRD) >60 (>60 ml/min/1.73 sqM); Potassium 3.8 mmol/L (3.5-5.1); Sodium 138 mmol/L (137-145); Total Bilirubin 0.4 mg/dL (0.2-1.3); Total Protein 5.8 g/dL (6.3-8.2)
[2016-12-20 19:04] LABS: INR 1.1 (<1.2); Partial Thromboplastin Time 23.8 sec (22.0-30.0); Prothrombin Time 10.7 sec (9.0-12.0)
[2016-12-20 19:17] LABS: Creatine Kinase 87 U/L (55-170)
[2016-12-20 19:28] LABS: Creatine Kinase MB 1.3 ng/mL (0.0-2.4); Troponin I <0.012 ng/mL (0.000-0.034)
--- NOTE | 2016-12-20 20:25 | ED ---
General Adult HPI - General Chief complaint: GI Bleed Stated complaint: dark stool Time Seen by Provider: 12/20/16 18:07 Source: patient, EMS Mode of arrival: EMS - History of Present Illness Initial comments: This 76-year-old white male presents with a complaint of weakness. He is had some very dark stools. He was just discharged from the hospital 2 days ago. He initially was admitted 5 days previously with some mental status changes which was likely due to drug use. He apparently had been utilizing IV heroin as well as cocaine. He also had multiple other medical conditions evaluated on the hospital. He apparently did have some black stools while in the hospital as well and was scheduled to have some outpatient endoscopy but has not had that as of yet. He states that the weakness is severe. He denies any chest pain or shortness of breath. He denies any further drug use or alcohol use since being home. He denies any abdominal pain, nausea, vomiting, or diarrhea. He denies any other complaints or modifying factors. - Related Data Home Medications Medication Instructions Recorded Confirmed Aspirin EC [Ecotrin Low Dose] 81 mg PO DAILY 02/13/16 12/20/16 Gabapentin [Neurontin] 300 mg PO HS 02/13/16 12/20/16 Pravastatin Sodium [Pravachol] 20 mg PO HS 07/26/16 12/20/16 Ranitidine HCl 300 mg PO HS 07/26/16 12/20/16 Brimonidine Tartrate [Alphagan P 1 drop BOTH EYES BID 07/27/16 12/20/16 0.2% Ophth Soln] Carvedilol [Coreg] 3.125 mg PO BID 07/27/16 12/20/16 Dorzolamide HCl [Trusopt 2%] 1 drop BOTH EYES BID 07/27/16 12/20/16 Tamsulosin HCl [Flomax] 0.4 cap PO DAILY 07/27/16 12/20/16 Timolol [Betimol 0.5% Ophth Soln] 1 drop BOTH EYES BID 07/27/16 12/20/16 Fluticasone Nasal [place] [Flonase 2 spr EA NOSTRIL DAILY 10/11/16 12/20/16 Nasal [place]] Multivitamins, Thera [Multivitamin 1 tab PO DAILY 10/11/16 12/20/16 (formulary)] Albuterol Inhaler [Ventolin Hfa 1 - 2 puff INHALATION RT-Q6H PRN 12/11/16 Inhaler] Albuterol Nebulized [Ventolin 2.5 mg INHALATION RT-QID PRN 12/11/16 12/20/16 Nebulized] HYDROcodone/APAP 5-325MG [[place] 1 tab PO Q6HR PRN 12/11/16 12/20/16 5-325] Lisinopril [Zestril] 10 mg PO DAILY 12/11/16 12/20/16 PARoxetine [Paxil] 20 mg PO DAILY 12/11/16 12/20/16 Previous Rx's Medication Instructions Recorded ALPRAZolam [Xanax] 0.25 mg PO TID PRN #20 tab 10/15/16 traMADol HCl [Ultram] 50 mg PO QID PRN #20 tab 10/16/16 Thiamine [Vitamin B-1] 100 mg PO DAILY #14 tablet 12/17/16 Allergies Allergy/AdvReac Type Severity Reaction Status Date / Time iodine Allergy Unknown Verified 12/10/16 19:01 Review of Systems ROS Statement: Those systems with pertinent positive or pertinent negative responses have been documented in the HPI. ROS Other: All systems not noted in ROS Statement are negative. Past Medical History Past Medical History: Atrial Fibrillation, Asthma, CVA/TIA, Eye Disorder, GERD/ Reflux, Hyperlipidemia, Hypertension, Osteoarthritis (OA), Prostate Disorder Additional Past Medical History / Comment(s): Bronchial asthma, chronic atrial fibrillation, glaucoma, alcoholism, polysubstance abuse including heroin and cocaine, hepatitis C positive, CVA/TIA 2, acid reflux, hyperlipidemia, osteoarthritis, BPH, hypertension History of Any Multi-Drug Resistant Organisms: None Reported Past Surgical History: Back Surgery, Joint Replacement, Prostate Surgery Additional Past Surgical History / Comment(s): Left total knee surgery, lower lumbar surgery, lumbar pain injections, TURP, colonoscopy, cataracts removed bilaterally. Surgery for a hernia and intra-abdominal surgery for bowel resection felt to be related to a previous bowel obstruction. Past Anesthesia/Blood Transfusion Reactions: No Reported Reaction Past Psychological History: No Psychological Hx Reported Smoking Status: Never smoker Past Drug Use History: Cocaine, Heroin - Past Family History Father Family Medical History: Cancer Additional Family Medical History / Comment(s): colon cancer Mother Family Medical History: Myocardial Infarction ([place]) Brother(s) Family Medical History: Myocardial Infarction ([place]) General Exam - General Exam Comments Initial Comments: GENERAL: The patient is well nourished and well hydrated. VITAL SIGNS: Heart rate, blood pressure, respiratory rate reviewed as recorded in nurse's notes. EYES: Pupils are round and reactive. Extraocular movements are intact. No conjunctival / lid redness or swelling. ENT: No external evidence of injury, swelling, or ecchymosis. Airway is patent. Throat is clear. NECK: Nontender. No swelling or evidence of injury. No subcutaneous emphysema. Trachea is midline. No thyroid mass. HEART: Regular rate and rhythm. Good peripheral pulses. LUNGS/CHEST: Breath sounds clear and equal bilaterally. No rales, rhonchi, or wheezes. No ecchymosis, subcutaneous emphysema, or tenderness. ABDOMEN: Abdomen soft without tenderness. No palpable masses or organomegaly. No peritoneal signs. No abdominal wall swelling or ecchymosis. EXTREMITIES: No extremity tenderness. Normal muscle tone and function. No thoracolumbar tenderness. NEUROLOGIC: Sensation is grossly intact. Cranial nerve exam reveals face is symmetrical, tongue is midline, speech is clear. SKIN: No abrasions or ecchymosis is noted. No induration or masses noted. PSYCHIATRIC: Alert and oriented. Appropriate behavior and judgment. Rectal exam: There is some dark stool noted upon digital rectal examination. There is no bright red blood identified. Good rectal tone. No external hemorrhoids noted. Course Vital Signs 12/20/16 12/20/16 12/20/16 17:40 19:31 20:20 Temperature 100.4 F H 98.8 F Pulse Rate 92 99 109 H Respiratory 19 18 18 Rate Blood Pressure 110/71 113/80 122/73 O2 Sat by Pulse 98 99 98 Oximetry 12/20/16 21:04 Temperature 97.8 F Pulse Rate 80 Respiratory 18 Rate Blood Pressure 109/73 O2 Sat by Pulse 98 Oximetry Medical Decision Making - Medical Decision Making The patient was seen and examined. All diagnostics were reviewed. The patient was placed on the veterinarian laboratory animal care no ectopy is identified. The EKG shows a normal sinus rhythm at a rate of 99. There is evidence of a right bundle- branch block. There is no acute ST-T wave changes identified. The QRS duration is 128 and the QTc interval is 500. An IV is started and the patient is hydrated. Hemoccult is completed and is sent. The patient's hemoglobin came back low at 8.3. This is decreased from previous hospital admission where it was in the 10's. He does receive some IV Protonix. It is felt as though his weakness is likely due to the anemia. It is felt as though his it weakness is related to the anemia. Case is discussed with internal medicine and they are agreeable with admission. The Hemoccult is positive. It is felt that he likely does have an upper GI bleed. The possibility of a lower GI bleed is possible as well. GI will be consulted. - Lab Data Result diagrams: 12/20/16 18:32 12/20/16 18:32 Lab Results 12/20/16 12/20/16 12/20/16 Range/Units 18:32 18:32 18:32 WBC 7.2 (3.8-10.6) k/uL RBC 2.56 L (4.30-5.90) m/uL Hgb 8.3 L D (13.0-17.5) gm/dL Hct 25.3 L (39.0-53.0) % MCV 98.8 (80.0-100.0) fL MCH 32.4 (25.0-35.0) pg MCHC 32.8 (31.0-37.0) g/dL RDW 15.7 H (11.5-15.5) % Plt Count 598 H D (150-450) k/uL Neutrophils % 74 % Lymphocytes % 12 % Monocytes % 9 % Eosinophils % 1 % Basophils % 0 % Neutrophils # 5.3 (1.3-7.7) k/uL Lymphocytes # 0.9 L (1.0-4.8) k/uL Monocytes # 0.7 (0-1.0) k/uL Eosinophils # 0.1 (0-0.7) k/uL Basophils # 0.0 (0-0.2) k/uL Hypochromasia Slight Macrocytosis Slight PT (9.0-12.0) sec INR (<1.2) APTT (22.0-30.0) sec Sodium 138 (137-145) mmol/L Potassium 3.8 (3.5-5.1) mmol/L Chloride 108 H (98-107) mmol/L Carbon Dioxide 19 L (22-30) mmol/L Anion Gap 11 mmol/L BUN 9 (9-20) mg/dL Creatinine 1.01 (0.66-1.25) mg/dL Est GFR (MDRD) Af Amer >60 (>60 ml/min/1.73 sqM) Est GFR (MDRD) Non-Af >60 (>60 ml/min/1.73 sqM) Glucose 97 (74-99) mg/dL Calcium 8.1 L (8.4-10.2) mg/dL Total Bilirubin 0.4 (0.2-1.3) mg/dL AST 42 (17-59) U/L ALT 39 (21-72) U/L Alkaline Phosphatase 94 (38-126) U/L Total Creatine Kinase 87 (55-170) U/L CK-MB (CK-2) 1.3 (0.0-2.4) ng/mL CK-MB (CK-2) Rel Index 1.5 Troponin I <0.012 (0.000-0.034) ng/mL Total Protein 5.8 L (6.3-8.2) g/dL Albumin 2.6 L (3.5-5.0) g/dL Urine Color Urine Appearance (Clear) Urine pH (5.0-8.0) Ur Specific [place] (1.001-1.035) Urine Protein (Negative) Urine Glucose (UA) (Negative) Urine Ketones (Negative) Urine Blood (Negative) Urine Nitrite (Negative) Urine Bilirubin (Negative) Urine Urobilinogen (<2.0) mg/dL Ur Leukocyte Esterase (Negative) Stool Occult Blood (Negative) Blood Type Blood Type Recheck Antibody Screen Spec Expiration Date 12/20/16 12/20/16 12/20/16 Range/Units 18:32 18:32 20:17 WBC (3.8-10.6) k/uL RBC (4.30-5.90) m/uL Hgb (13.0-17.5) gm/dL Hct (39.0-53.0) % MCV (80.0-100.0) fL MCH (25.0-35.0) pg MCHC (31.0-37.0) g/dL RDW (11.5-15.5) % Plt Count (150-450) k/uL Neutrophils % % Lymphocytes % % Monocytes % % Eosinophils % % Basophils % % Neutrophils # (1.3-7.7) k/uL Lymphocytes # (1.0-4.8) k/uL Monocytes # (0-1.0) k/uL Eosinophils # (0-0.7) k/uL Basophils # (0-0.2) k/uL Hypochromasia Macrocytosis PT 10.7 (9.0-12.0) sec INR 1.1 (<1.2) APTT 23.8 (22.0-30.0) sec Sodium (137-145) mmol/L Potassium (3.5-5.1) mmol/L Chloride (98-107) mmol/L Carbon Dioxide (22-30) mmol/L Anion Gap mmol/L BUN (9-20) mg/dL Creatinine (0.66-1.25) mg/dL Est GFR (MDRD) Af Amer (>60 ml/min/1.73 sqM) Est GFR (MDRD) Non-Af (>60 ml/min/1.73 sqM) Glucose (74-99) mg/dL Calcium (8.4-10.2) mg/dL Total Bilirubin (0.2-1.3) mg/dL AST (17-59) U/L ALT (21-72) U/L Alkaline Phosphatase (38-126) U/L Total Creatine Kinase (55-170) U/L CK-MB (CK-2) (0.0-2.4) ng/mL CK-MB (CK-2) Rel Index Troponin I (0.000-0.034) ng/mL Total Protein (6.3-8.2) g/dL Albumin (3.5-5.0) g/dL Urine Color Urine Appearance (Clear) Urine pH (5.0-8.0) Ur Specific [place] (1.001-1.035) Urine Protein (Negative) Urine Glucose (UA) (Negative) Urine Ketones (Negative) Urine Blood (Negative) Urine Nitrite (Negative) Urine Bilirubin (Negative) Urine Urobilinogen (<2.0) mg/dL Ur Leukocyte Esterase (Negative) Stool Occult Blood Positive (Negative) Blood Type O Positive Blood Type Recheck No Antibody Screen NEGATIVE Spec Expiration Date 12/23/2016 - 233112/20/16 Range/Units 20:59 WBC (3.8-10.6) k/uL RBC (4.30-5.90) m/uL Hgb (13.0-17.5) gm/dL Hct (39.0-53.0) % MCV (80.0-100.0) fL MCH (25.0-35.0) pg MCHC (31.0-37.0) g/dL RDW (11.5-15.5) % Plt Count (150-450) k/uL Neutrophils % % Lymphocytes % % Monocytes % % Eosinophils % % Basophils % % Neutrophils # (1.3-7.7) k/uL Lymphocytes # (1.0-4.8) k/uL Monocytes # (0-1.0) k/uL Eosinophils # (0-0.7) k/uL Basophils # (0-0.2) k/uL Hypochromasia Macrocytosis PT (9.0-12.0) sec INR (<1.2) APTT (22.0-30.0) sec Sodium (137-145) mmol/L Potassium (3.5-5.1) mmol/L Chloride (98-107) mmol/L Carbon Dioxide (22-30) mmol/L Anion Gap mmol/L BUN (9-20) mg/dL Creatinine (0.66-1.25) mg/dL Est GFR (MDRD) Af Amer (>60 ml/min/1.73 sqM) Est GFR (MDRD) Non-Af (>60 ml/min/1.73 sqM) Glucose (74-99) mg/dL Calcium (8.4-10.2) mg/dL Total Bilirubin (0.2-1.3) mg/dL AST (17-59) U/L ALT (21-72) U/L Alkaline Phosphatase (38-126) U/L Total Creatine Kinase (55-170) U/L CK-MB (CK-2) (0.0-2.4) ng/mL CK-MB (CK-2) Rel Index Troponin I (0.000-0.034) ng/mL Total Protein (6.3-8.2) g/dL Albumin (3.5-5.0) g/dL Urine Color Yellow Urine Appearance Clear (Clear) Urine pH 6.0 (5.0-8.0) Ur Specific [place] 1.011 (1.001-1.035) Urine Protein Negative (Negative) Urine Glucose (UA) Negative (Negative) Urine Ketones Negative (Negative) Urine Blood Negative (Negative) Urine Nitrite Negative (Negative) Urine Bilirubin Negative (Negative) Urine Urobilinogen 3.0 (<2.0) mg/dL Ur Leukocyte Esterase Negative (Negative) Stool Occult Blood (Negative) Blood Type Blood Type Recheck Antibody Screen Spec Expiration Date Disposition Clinical Impression: GI bleed, Anemia, Weakness, Melena Disposition: ADMITTED IP TO THIS [facility] Condition: Fair Time of Disposition: 21:48 Decision Date: 12/20/16 Decision Time: 21:48
--- NOTE | 2016-12-20 20:44 | XR ---
EXAMINATION TYPE: XR chest 2V DATE OF EXAM: 12/20/2016 COMPARISON: 12/10/2016 HISTORY: Weakness TECHNIQUE: Frontal and lateral views of the chest are obtained. FINDINGS: There is slight coarsening of the lung markings in the left lower lobe. There is no pulmon katy consolidation. There is no heart failure. Heart size is normal. There is no pleural effusion. The re are chest leads. Bony thorax is intact. IMPRESSION: Minimal pulmonary fibrotic changes. Normal heart. No evidence of acute lung disease. No significant change.
[2016-12-20 21:06] LABS: Appearance,Urine Clear (Clear); Bilirubin,Urine Negative (Negative); Glucose,Urine (UA) Negative (Negative); Ketones,Urine Negative (Negative); Leukocyte Esterase,Urine Negative (Negative); Nitrite,Urine Negative (Negative); Protein,Urine Negative (Negative); Specific Gravity,Urine 1.011 (1.001-1.035); UA Billing (MACRO vs. MICRO) CHEM
[2016-12-20] MEDS ORDERED: ONDANSETRON 4 MG/2 ML VIAL IVP PRN (21:49)
[2016-12-20] MEDS ORDERED: NALOXONE 0.4 MG/ML 1 ML VIAL IV PRN (21:49)
[2016-12-20] MEDS ORDERED: ACETAMINOPHEN TAB 325 MG TAB PO PRN (21:49)
[2016-12-20] MEDS ORDERED: ALPRAZolam 0.25 MG TAB PO PRN (21:52)
[2016-12-20] MEDS ORDERED: ALBUTEROL NEBULIZED 2.5 MG/3 ML INHALATION PRN ×2 (21:52)
[2016-12-20] MEDS ORDERED: traMADol 50 MG TAB PO PRN (21:52)
[2016-12-20] MEDS ORDERED: HYDROcodone/APAP 5-325MG 1 EACH TAB PO PRN (21:52)
[2016-12-21 00:22] VITALS: BMI 24.7
[2016-12-21 07:03] LABS: Anisocytosis Slight; Basophils % (A) 1 %; CH 32.6; CHCM 32.1; Eosinophils # (A) 0.1 k/uL (0-0.7); Eosinophils % (A) 1 %; HCT 26.2 % (39.0-53.0); HDW 2.65; HGB 8.1 gm/dL (13.0-17.5); Hypochromasia Slight; Luc # (Auto) 0.14; Luc % (Auto) 3; Lymphocytes # (A) 1.1 k/uL (1.0-4.8); Lymphocytes % (A) 20 %; MCH 31.4 pg (25.0-35.0); MCHC 30.9 g/dL (31.0-37.0); MCV 101.9 fL (80.0-100.0); Macrocytosis Slight; Mean Platelet Volume 7.6; Monocytes # (A) 0.6 k/uL (0-1.0); Monocytes % (A) 11 %; Neutrophils # (A) 3.5 k/uL (1.3-7.7); Neutrophils % (A) 65 %; RBC 2.57 m/uL (4.30-5.90); RDW 16.3 % (11.5-15.5); WBC 5.3 k/uL (3.8-10.6); WBC (Perox) 5.41
[2016-12-21] MEDS: LISINOPRIL 10 MG TAB PO SCH (08:29)
[2016-12-21] MEDS: THIAMINE 100 MG TAB PO SCH (08:29)
[2016-12-21] MEDS: MULTIVITAMINS, THERA 1 EACH TAB PO SCH (08:29)
[2016-12-21] MEDS: TAMSULOSIN 0.4 MG CAP.ER.24H PO SCH (08:29)
[2016-12-21] MEDS: PARoxetine 20 MG TAB PO SCH (08:29)
[2016-12-21] MEDS: PANTOPRAZOLE 40 MG/10 ML VIAL IV SCH (08:30)
[2016-12-21] MEDS: FLUTICASONE 50MCG/SPRAY NASAL 16GM EA NOSTRIL SCH (08:38)
[2016-12-21] MEDS: DORZOLAMIDE HCL 2% DROPS 10 ML BTL BOTH EYES SCH ×2 (08:38→20:43)
[2016-12-21] MEDS: TIMOLOL 0.5% OPHTH DROPS 5 ML BTL BOTH EYES SCH ×2 (08:39→20:44)
[2016-12-21] MEDS: BRIMONIDINE TARTRATE 0.2% DROPS 5 ML BTL BOTH EYES SCH ×2 (08:39→20:43)
[2016-12-21] MEDS ORDERED: CARVEDILOL 3.125 MG TAB PO SCH (09:00)
[2016-12-21] MEDS ORDERED: PROPOFOL 10 MG/ML 20 ML VIAL IV ONE (09:11)
[2016-12-21] MEDS ORDERED: PHENYLEPHRINE-0.9% NACL SYG 1 MG/10 ML SYRINGE ONE (09:11)
[2016-12-21] MEDS ORDERED: LIDOCAINE 1% INJ 10MG/ML (20 ML MDV) ONE (09:11)
--- NOTE | 2016-12-21 10:51 | P.CONS ---
History of Present Illness - Reason for Consult Consult date: 12/21/16 GI bleed anemia Requesting physician: Joyce Reddy - History of Present Illness 76-year-old gentleman with a history of atrial fibrillation, CVA, GERD, chronic kidney disease, hepatitis C reactive antibody, polysubstance heroin cocaine alcohol abuse, recently hospitalized with altered mental status 10 days ago toxic encephalopathy secondary to IV drug abuse. Patient presents with reports of black colored bowel movements but previously was passing red color bowel movements just a few weeks ago. Last colonoscopy to his memory performed in [place] about 3 years ago normal, questionable EGD evaluation in the past. Stool occult blood positive. More fatigue but denies chest pain or fever. Passing black-colored bowel movement sometimes daily for the last several days. Admission hemoglobin 8.3. MCV 98. Platelets 598. BUN 9. Creatinine 1.0. INR 1.1. Denies recent IV drug or alcohol consumption. Denies abdominal pain. Liver enzymes within normal limits. Hepatitis screen reactive hepatitis C antibody on 12/11/2016. Review of Systems Constitutional: Denies fever, chills, sweats, weight gain, or loss. HEENT: Negative for migraines, blurred vision or loss, earaches, drainage, tinnitus, oral mucosal lesions, dysphagia, or odynophagia. Cardiac: A. fib. Hyperlipidemia. Hypertension. Negative for chest pain, arrhythmias, or palpitation. Respiratory: Negative for shortness of breath, hemoptysis, cough, or sputum production. Gastrointestinal: See HPI for pertinent findings. Genitourinary: Negative for hematuria, urgency, frequency, polyuria, dysuria, or penile discharge. Musculoskeletal: Negative for muscle aches, swelling, arthritis, and arthralgias. Neurologic: CVA. Endocrine: Negative for thyroid problems. Skin: Negative for rash or itching. Psychiatric: Polysubstance abuse All systems: negative (See HPI) Past Medical History Past Medical History: Atrial Fibrillation, Asthma, CVA/TIA, Eye Disorder, GERD/ Reflux, Hyperlipidemia, Hypertension, Osteoarthritis (OA), Prostate Disorder Additional Past Medical History / Comment(s): Bronchial asthma, chronic atrial fibrillation, glaucoma, alcoholism, polysubstance abuse including heroin and cocaine, hepatitis C positive, CVA/TIA 2, acid reflux, hyperlipidemia, osteoarthritis, BPH, hypertension History of Any Multi-Drug Resistant Organisms: None Reported Past Surgical History: Back Surgery, Joint Replacement, Prostate Surgery Additional Past Surgical History / Comment(s): Left total knee surgery, lower lumbar surgery, lumbar pain injections, TURP, colonoscopy, cataracts removed bilaterally. Surgery for a hernia and intra-abdominal surgery for bowel resection felt to be related to a previous bowel obstruction. Past Anesthesia/Blood Transfusion Reactions: No Reported Reaction Past Psychological History: No Psychological Hx Reported Additional Psychological History / Comment(s): Pt lives alone. He ambulates with a cane. He states he drives. He manages his own medication. Smoking Status: Never smoker Past Alcohol Use History: Occasional Additional Past Alcohol Use History / Comment(s): Pt states he drinks 2-3 shots 3 days a week and sometimes a pint of liquor a day. Denies smoking or any other drugs-drug screen positive for cocaine 12/10/16 and positive for opiates as well. Past Drug Use History: Cocaine, Heroin Additional Drug Use History / Comment(s): Pt denies street drug use. 12/10/16 toxicology + for cocaine. - Past Family History Father Family Medical History: Cancer Additional Family Medical History / Comment(s): colon cancer Mother Family Medical History: Myocardial Infarction ([place]) Brother(s) Family Medical History: Myocardial Infarction ([place]) Medications and Allergies Home Medications Medication Instructions Recorded Confirmed Type Aspirin EC [Ecotrin Low Dose] 81 mg PO DAILY 02/13/16 12/20/16 History Gabapentin [Neurontin] 300 mg PO HS 02/13/16 12/20/16 History Pravastatin Sodium [Pravachol] 20 mg PO HS 07/26/16 12/20/16 History Ranitidine HCl 300 mg PO HS 07/26/16 12/20/16 History Brimonidine Tartrate [Alphagan P 1 drop BOTH EYES BID 07/27/16 12/20/16 History 0.2% Ophth Soln] Carvedilol [Coreg] 3.125 mg PO BID 07/27/16 12/20/16 History Dorzolamide HCl [Trusopt 2%] 1 drop BOTH EYES BID 07/27/16 12/20/16 History Tamsulosin HCl [Flomax] 0.4 cap PO DAILY 07/27/16 12/20/16 History Timolol [Betimol 0.5% Ophth Soln] 1 drop BOTH EYES BID 07/27/16 12/20/16 History Fluticasone Nasal [place] [Flonase 2 spr EA NOSTRIL DAILY 10/11/16 12/20/16 History Nasal [place]] Multivitamins, Thera [Multivitamin 1 tab PO DAILY 10/11/16 12/20/16 History (formulary)] Albuterol Inhaler [Ventolin Hfa 1 - 2 puff INHALATION RT-Q6H PRN 12/11/16 History Inhaler] Albuterol Nebulized [Ventolin 2.5 mg INHALATION RT-QID PRN 12/11/16 12/20/16 History Nebulized] HYDROcodone/APAP 5-325MG [[place] 1 tab PO Q6HR PRN 12/11/16 12/20/16 History 5-325] Lisinopril [Zestril] 10 mg PO DAILY 12/11/16 12/20/16 History PARoxetine [Paxil] 20 mg PO DAILY 12/11/16 12/20/16 History Allergies Allergy/AdvReac Type Severity Reaction Status Date / Time iodine Allergy Unknown Verified 12/10/16 19:01 Physical Exam Vitals: Vital Signs Temp Pulse Pulse Resp BP BP Pulse Ox 12/21/16 08:00 89 18 12/21/16 07:00 98.7 F 89 18 124/89 98 12/21/16 00:00 79 18 12/20/16 23:00 98.2 F 79 18 129/73 97 12/20/16 22:39 98.7 F 87 18 111/83 96 12/20/16 21:49 108 H 18 115/78 98 12/20/16 21:04 97.8 F 80 18 109/73 98 12/20/16 20:20 109 H 18 122/73 98 12/20/16 19:31 98.8 F 99 18 113/80 99 12/20/16 17:40 100.4 F H 92 19 110/71 98 Intake and Output 12/20/16 12/21/16 12/21/16 22:59 06:59 14:59 Intake Total 700 Output Total 960 Balance -260 Intake: Intake, IV Titration 700 Amount Sodium Chloride 0.9% 1, 700 000 ml @ 100 mls/hr IV . Q10H STA Rx#:[id number] Output: Urine 960 Other: Voiding Method Urinal Weight 80.6 kg 80.6 kg 80.6 kg Patient Weight 12/22/16 06:59 Weight 80.6 kg General appearance: The patient is alert, oriented, in no acute distress. HET: Head is normocephalic and atraumatic. Pupils are equal and reactive. Oropharynx is clear without lesions. Neck: Supple without lymphadenopathy. Trachea midline. Heart: S1 S2. Regular rate and rhythm. Lungs: No crackles or wheezes are heard. Abdomen: Soft, nontender, nondistended with bowel sounds. No peritoneal signs. No palpable organomegaly or masses. Extremities: Normal skin color and turgor. No cyanosis, rash, ulceration, clubbing, or edema. Radial and pedal pulses are 2/4 bilaterally. Neurological: No focal deficits. Strength and sensation are grossly intact. Results CBC & Chem 7: 12/21/16 06:36 12/20/16 18:32 Labs: Abnormal Lab Results - Last 24 Hours (Table) 12/20/16 12/20/16 12/21/16 Range/Units 18:32 18:32 06:36 RBC 2.56 L 2.57 L (4.30-5.90) m/uL Hgb 8.3 L D 8.1 L (13.0-17.5) gm/dL Hct 25.3 L 26.2 L (39.0-53.0) % MCV 101.9 H (80.0-100.0) fL MCHC 30.9 L (31.0-37.0) g/dL RDW 15.7 H 16.3 H (11.5-15.5) % Plt Count 598 H D 565 H (150-450) k/uL Lymphocytes # 0.9 L (1.0-4.8) k/uL Chloride 108 H (98-107) mmol/L Carbon Dioxide 19 L (22-30) mmol/L Calcium 8.1 L (8.4-10.2) mg/dL Total Protein 5.8 L (6.3-8.2) g/dL Albumin 2.6 L (3.5-5.0) g/dL Assessment and Plan (1) GI bleed Narrative/Plan: Reported melena as well as hematochezia less than 2 weeks ago possible upper possible lower source possible combination of both. Possible peptic ulcer disease possible esophageal varices possible diverticular bleed possible colitis. Status: Acute (2) Polysubstance abuse Status: Acute (3) ETOH abuse Status: Acute (4) Hepatitis C antibody test positive Status: Acute (5) Acute blood loss anemia Status: Acute Plan: 1. Hepatitis C quantitative measurement genotype. 2. AFP marker. 3. GI prophylaxis Protonix 40 mg IV daily. 4. Clear liquid diet. Nothing by mouth after midnight for EGD colonoscopy tomorrow. 5. CBC monitoring. 6. Alcohol polysubstance abuse abstinence strongly advised. 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 The patient has indicated understanding and acceptance of the risks and procedures discussed. Thank you for this kind referral and the opportunity to participate in the care of your patient. This consultation was discussed with Dr. Lugo. The impression and plan of care have been directed as dictated.
[2016-12-21] MEDS ORDERED: PEG 3350-NA SULF,BICARB,CL/KCL 4,000 ML BOTTLE PO ONE (15:00)
[2016-12-21] MEDS: FAMOTIDINE 20 MG TAB PO SCH (20:43)
[2016-12-21] MEDS: GABAPENTIN 300 MG CAP PO SCH (20:43)
[2016-12-21] MEDS: PRAVASTATIN SODIUM 20 MG TAB PO SCH (20:43)
[2016-12-21] MEDS: CARVEDILOL 6.25 MG TAB PO SCH (20:44)
--- NOTE | 2016-12-22 00:48 | P.HPIM ---
History of Present Illness H&P Date: 12/21/16 Chief Complaint: Dark-colored stools 76-year-old male with a history of HTN, CVA/TIA, GERD, chronic kidney disease, hepatitis C reactive antibody, polysubstance heroin cocaine alcohol abuse, recently hospitalized with altered mental status 10 days ago toxic encephalopathy secondary to IV drug abuse presents to ER with reports of black colored bowel movements for the past several days. Patient was recently discharged from the hospital and was admitted for alcohol withdrawal and IV drug abuse and metabolic and toxic encephalopathy. He states that the weakness is severe. He denies any chest pain or shortness of breath. He denies any further drug use or alcohol use since being home. He denies any abdominal pain, nausea, vomiting, or diarrhea. He denies any other complaints or modifying factors. Admission hemoglobin 8.3. MCV 98. Platelets 598. BUN 9. Creatinine 1.0. INR 1.1. Hemoglobin during last admission was 10. Chest x-ray showed no acute process Review of Systems CONSTITUTIONAL: No fever, no malaise, no fatigue. HEENT: No recent visual problems or hearing problems. Denied any sore throat. CARDIOVASCULAR: No chest pain, orthopnea, PND, no palpitations, no syncope. PULMONARY: , no hemoptysis. GASTROINTESTINAL: Patient complains of dark-colored stools No diarrhea, no nausea, no vomiting, no abdominal pain. Normoactive bowel sounds. NEUROLOGICAL: No headaches, no weakness, no numbness. HEMATOLOGICAL: Denies any bleeding or petechiae. GENITOURINARY: Denies any burning micturition, frequency, or urgency. MUSCULOSKELETAL/RHEUMATOLOGICAL: Denies any joint pain, swelling, or any muscle pain. ENDOCRINE: Denies any polyuria or polydipsia. The rest of the 14-point review of systems is negative. Past Medical History Past Medical History: Atrial Fibrillation, Asthma, CVA/TIA, Eye Disorder, GERD/ Reflux, Hyperlipidemia, Hypertension, Osteoarthritis (OA), Prostate Disorder Additional Past Medical History / Comment(s): Bronchial asthma, chronic atrial fibrillation, glaucoma, alcoholism, polysubstance abuse including heroin and cocaine, hepatitis C positive, CVA/TIA 2, acid reflux, hyperlipidemia, osteoarthritis, BPH, hypertension History of Any Multi-Drug Resistant Organisms: None Reported Past Surgical History: Back Surgery, Joint Replacement, Prostate Surgery Additional Past Surgical History / Comment(s): Left total knee surgery, lower lumbar surgery, lumbar pain injections, TURP, colonoscopy, cataracts removed bilaterally. Surgery for a hernia and intra-abdominal surgery for bowel resection felt to be related to a previous bowel obstruction. Past Anesthesia/Blood Transfusion Reactions: No Reported Reaction Past Psychological History: No Psychological Hx Reported Additional Psychological History / Comment(s): Pt lives alone. He ambulates with a cane. He states he drives. He manages his own medication. Smoking Status: Never smoker Past Alcohol Use History: Occasional Additional Past Alcohol Use History / Comment(s): Pt states he drinks 2-3 shots 3 days a week and sometimes a pint of liquor a day. Denies smoking or any other drugs-drug screen positive for cocaine 12/10/16 and positive for opiates as well. Past Drug Use History: Cocaine, Heroin Additional Drug Use History / Comment(s): Pt denies street drug use. 12/10/16 toxicology + for cocaine. - Past Family History Father Family Medical History: Cancer Additional Family Medical History / Comment(s): colon cancer Mother Family Medical History: Myocardial Infarction ([place]) Brother(s) Family Medical History: Myocardial Infarction ([place]) Medications and Allergies Home Medications Medication Instructions Recorded Confirmed Type Aspirin EC [Ecotrin Low Dose] 81 mg PO DAILY 02/13/16 12/20/16 History Gabapentin [Neurontin] 300 mg PO HS 02/13/16 12/20/16 History Pravastatin Sodium [Pravachol] 20 mg PO HS 07/26/16 12/20/16 History Ranitidine HCl 300 mg PO HS 07/26/16 12/20/16 History Brimonidine Tartrate [Alphagan P 1 drop BOTH EYES BID 07/27/16 12/20/16 History 0.2% Ophth Soln] Carvedilol [Coreg] 3.125 mg PO BID 07/27/16 12/20/16 History Dorzolamide HCl [Trusopt 2%] 1 drop BOTH EYES BID 07/27/16 12/20/16 History Tamsulosin HCl [Flomax] 0.4 cap PO DAILY 07/27/16 12/20/16 History Timolol [Betimol 0.5% Ophth Soln] 1 drop BOTH EYES BID 07/27/16 12/20/16 History Fluticasone Nasal [place] [Flonase 2 spr EA NOSTRIL DAILY 10/11/16 12/20/16 History Nasal [place]] Multivitamins, Thera [Multivitamin 1 tab PO DAILY 10/11/16 12/20/16 History (formulary)] Albuterol Inhaler [Ventolin Hfa 1 - 2 puff INHALATION RT-Q6H PRN 12/11/16 History Inhaler] Albuterol Nebulized [Ventolin 2.5 mg INHALATION RT-QID PRN 12/11/16 12/20/16 History Nebulized] HYDROcodone/APAP 5-325MG [[place] 1 tab PO Q6HR PRN 12/11/16 12/20/16 History 5-325] Lisinopril [Zestril] 10 mg PO DAILY 12/11/16 12/20/16 History PARoxetine [Paxil] 20 mg PO DAILY 12/11/16 12/20/16 History Allergies Allergy/AdvReac Type Severity Reaction Status Date / Time iodine Allergy Unknown Verified 12/10/16 19:01 Physical Exam Vitals: Vital Signs Temp Pulse Pulse Resp BP BP Pulse Ox 12/21/16 15:38 18 12/21/16 08:00 89 18 12/21/16 07:00 98.7 F 89 18 124/89 98 12/21/16 00:00 79 18 12/20/16 23:00 98.2 F 79 18 129/73 97 12/20/16 22:39 98.7 F 87 18 111/83 96 12/20/16 21:49 108 H 18 115/78 98 12/20/16 21:04 97.8 F 80 18 109/73 98 12/20/16 20:20 109 H 18 122/73 98 12/20/16 19:31 98.8 F 99 18 113/80 99 12/20/16 17:40 100.4 F H 92 19 110/71 98 Intake and Output 12/21/16 12/21/16 12/21/16 06:59 14:59 22:59 Intake Total 700 Output Total 960 825 Balance -260 820 Intake: Intake, IV Titration 700 Amount Sodium Chloride 0.9% 1, 700 000 ml @ 100 mls/hr IV . Q10H [facility] Rx#:[id number] Output: Urine 960 825 Other: Voiding Method Urinal Urinal Weight 80.6 kg 80.6 kg Patient Weight 12/22/16 06:59 Weight 80.6 kg PHYSICAL EXAMINATION: Patient is lying in the bed comfortably, no acute distress, awake alert and oriented but talks slowly HEENT: Normocephalic. Neck is supple. Pupils reactive. Nostrils clear. Oral cavity is moist. Ears reveal no drainage. Neck reveals no JVD, carotid bruits, or thyromegaly. CHEST EXAMINATION: Trachea is central. Symmetrical expansion. Lung dailey clear to auscultation and percussion. CARDIAC: Normal S1, S2 with no gallops. No murmurs ABDOMEN: Soft. Bowel sounds normal. No organomegaly. No abdominal bruits. Extremities reveal no edema. No clubbing or cyanosis Neurologically awake, alert, oriented x3 with well-coordinated movements. Skin: no rash or skin lesions Musculoskeletal: no joint swelling or deformity. Results CBC & Chem 7: 12/21/16 06:36 12/20/16 18:32 Labs: Abnormal Lab Results - Last 24 Hours (Table) 12/20/16 12/20/16 12/21/16 Range/Units 18:32 18:32 06:36 RBC 2.56 L 2.57 L (4.30-5.90) m/uL Hgb 8.3 L D 8.1 L (13.0-17.5) gm/dL Hct 25.3 L 26.2 L (39.0-53.0) % MCV 101.9 H (80.0-100.0) fL MCHC 30.9 L (31.0-37.0) g/dL RDW 15.7 H 16.3 H (11.5-15.5) % Plt Count 598 H D 565 H (150-450) k/uL Lymphocytes # 0.9 L (1.0-4.8) k/uL Chloride 108 H (98-107) mmol/L Carbon Dioxide 19 L (22-30) mmol/L Calcium 8.1 L (8.4-10.2) mg/dL Total Protein 5.8 L (6.3-8.2) g/dL Albumin 2.6 L (3.5-5.0) g/dL Thrombosis Risk Factor Assmnt - DVT/VTE Prophylaxis DVT/VTE Prophylaxis: Mechanical Prophylaxis ordered - Choose All That Apply Each Risk Factor Represents 2 Points: Age 61-74 years Other congenital or acquired thrombophilia - If yes, enter type in comment: No Thrombosis Risk Factor Assessment Total Risk Factor Score: 2 Thrombosis Risk Factor Assessment Level: Low Risk Assessment and Plan Plan: #1 acute blood loss anemia secondary to GI bleed was upper versus both #2 history of alcohol abuse and recent admission. Denied any further alcohol use after discharging home #3 hepatitis C #4 polysubstance abuse including heroine and cocaine #5 hypertension #6 history of CVA/TIA Plan: Continue to follow H&H and patient is scheduled for EGD and colonoscopy tomorrow as per GI. We will continue to monitor for alcohol withdrawal symptoms. Continue current management and further recommendations based on the clinical course.
[2016-12-22] MEDS ORDERED: IV FLUID CONTINUATION 1,000 ML IV ONE (09:11)
[2016-12-22] MEDS ORDERED: EPINEPHrine 10 ML SYRINGE (0.1 MG/ML) IM ONE (10:02)
--- NOTE | 2016-12-22 10:19 | P.PCN ---
Date of Procedure: 12/22/16 Preoperative Diagnosis: Postoperative Diagnosis: Procedure(s) Performed: Procedure: Esophagogastroduodenoscopy and injection of an acutely bleeding duodenal bulb ulcer with a total of 5 mL of 1:10,000 concentration of epinephrine. Preoperative diagnosis GI bleeding and anemia. Postoperative diagnosis: 1. Duodenal bulb ulcer, actively bleeding S/P injection with total of 5 mL of epinephrine. 2. Faby esophagitis. Preparation and sedation: Was provided by anesthesia. Brief clinical history: Patient is a 76-year-old gentleman with history of atrial fibrillation, CVA, GERD, chronic kidney disease, hepatitis C reactive antibody, polysubstance heroin/cocaine/ alcohol abuse, recently hospitalized with altered mental status 10 days ago secondary to toxic encephalopathy secondary to IV drug abuse. He patient presented with reports of black colored bowel movements. On his last admission he was passing red color bowel movements. Last colonoscopy to his memory performed in [place] about 3 years ago normal, questionable EGD evaluation in the past. The details are summarized in the history and physical and dictated consultation. The patient was scheduled for both an upper endoscopy and colonoscopy for today, however, he did not take his colon prep and based on his history I proceeded with his upper endoscopy for the likelihood that we are dealing with an upper GI source of bleeding. Procedure: With the patient on his left lateral decubitus position and after informed consent and adequate sedation, I passed the Olympus-GIF 160 video upper endoscope through the cricopharyngeus down the esophagus. The esophagus showed scattered sticky white exudates consistent with Faby esophagitis. There was no ulcers, erosions, mucosal tears or varices. There was a sliding hiatal hernia then the endoscope was advanced into the stomach. Upon entering the stomach there was fresh blood refluxing back from the duodenum. As soon as I advanced the endoscope into the duodenum we noted brisk bleeding from a duodenal bulb ulcer. The area of bleeding had the shape of a deep pseudodiverticulum with diffuse oozing of blood from its base. I took pictures of that area and then I proceeded to inject a total of 5 mL 1 in 10,000 solution of epinephrine with fair control of the bleeding. There was no visible or protruding vessel or any singular area of bleeding in the ulcer to attempt area solution clip placement. I left an NG tube for intermittent suction then the endoscope was withdrawn. The patient tolerated the procedure well and did not have any immediate complications. Plan: Will transfer to intensive care unit and obtain consult with the open developer operator. Since this is his second major bleed, consideration should be made for surgical consultation as well consideration for possible surgical intervention. Implants: Indications for Procedure: Operative Findings: Description of Procedure:
[2016-12-22] MEDS ORDERED: LACTATED RINGERS 1,000 ML IV SCH (10:34)
[2016-12-22 10:59] LABS: Glucose,Whole Blood 132 mg/dL (75-99)
[2016-12-22] MEDS: PANTOPRAZOLE 40 MG/10 ML VIAL IV SCH ×2 (11:03→21:06)
[2016-12-22] MEDS: BRIMONIDINE TARTRATE 0.2% DROPS 5 ML BTL BOTH EYES SCH ×2 (11:03→21:05)
[2016-12-22] MEDS: DORZOLAMIDE HCL 2% DROPS 10 ML BTL BOTH EYES SCH ×2 (11:04→21:05)
[2016-12-22] MEDS: FLUTICASONE 50MCG/SPRAY NASAL 16GM EA NOSTRIL SCH (11:04)
[2016-12-22] MEDS: TIMOLOL 0.5% OPHTH DROPS 5 ML BTL BOTH EYES SCH ×2 (11:05→21:05)
[2016-12-22] MEDS ORDERED: THIAMINE 100 MG/ML 2 ML VIAL IM STA (11:13)
[2016-12-22] MEDS ORDERED: LORazepam 2 MG/ML SYRINGE IV PRN ×3 (11:13)
[2016-12-22 11:44] LABS: Basophils % (A) 0 %; CH 31.2; CHCM 31.7; Eosinophils # (A) 0.1 k/uL (0-0.7); Eosinophils % (A) 1 %; HCT 21.4 % (39.0-53.0); HDW 2.76; Hypochromasia Slight; INR 1.3 (<1.2); Luc # (Auto) 0.23; Luc % (Auto) 2; Lymphocytes # (A) 0.8 k/uL (1.0-4.8); Lymphocytes % (A) 8 %; MCH 31.5 pg (25.0-35.0); MCHC 31.8 g/dL (31.0-37.0); Macrocytosis Slight; Monocytes # (A) 0.6 k/uL (0-1.0); Monocytes % (A) 6 %; Neutrophils # (A) 8.9 k/uL (1.3-7.7); Neutrophils % (A) 83 %; Partial Thromboplastin Time 22.8 sec (22.0-30.0); Prothrombin Time 12.5 sec (9.0-12.0); RBC 2.16 m/uL (4.30-5.90); RDW 15.5 % (11.5-15.5); WBC 10.7 k/uL (3.8-10.6); WBC (Perox) 11.39
[2016-12-22 11:46] LABS: HGB 6.8 gm/dL (13.0-17.5)
[2016-12-22 12:02] LABS: Anion Gap 9 mmol/L; Blood Urea Nitrogen 6 mg/dL (9-20); Calcium 6.8 mg/dL (8.4-10.2); Carbon Dioxide 18 mmol/L (22-30); Chloride 113 mmol/L (98-107); Glucose 107 mg/dL (74-99); Magnesium 1.3 mg/dL (1.6-2.3); Non-African American GFR(MDRD) >60 (>60 ml/min/1.73 sqM); Phosphorous 3.1 mg/dL (2.5-4.5); Potassium 3.4 mmol/L (3.5-5.1); Sodium 140 mmol/L (137-145)
--- NOTE | 2016-12-22 12:27 | P.CNPUL ---
History of Present Illness Consult date: 12/22/16 Requesting physician: Joyce Reddy Reason for consult: other (GI bleeding, ICU management) Chief complaint: Black-colored bowel movements History of present illness: This is a 76-year-old male with history of chronic atrial fibrillation, chronic kidney disease, hepatitis C, polysubstance abuse including heroin and cocaine and alcohol abuse, recently hospitalized for altered mental status and toxic encephalopathy secondary to IV drug abuse. Patient is also known to have history of GERD, chronic atrial fibrillation and previous CVA. Patient presented to the hospital with few weeks history of black colored stools and sometimes bright red bowel movements. Patient was also complaining of fatigue, no chest pain, no fever, no chills, no hemoptysis. Admission hemoglobin was 8.3 rest of the coagulation profile was relatively unremarkable. Patient underwent EGD today by Dr. Arriaga, and he was found to have a duodenal bulb ulcer required injection of epinephrine to control the bleeding. Postoperatively, patient was transferred to the ICU and I was asked to see him on consultation. Patient had a total of 5 ML of epinephrine injected into the bleeding ulcer. Upon my evaluation, patient was noted to be comfortable, hemodynamically stable, and in no distress. Review of Systems Constitutional: Denies fever, chills, sweats, weight gain, or loss. HEENT: Negative for migraines, blurred vision or loss, earaches, drainage, tinnitus, oral mucosal lesions, dysphagia, or odynophagia. Cardiac: A. fib. Hyperlipidemia. Hypertension. Negative for chest pain, arrhythmias, or palpitation. Respiratory: Negative for shortness of breath, hemoptysis, cough, or sputum production. Gastrointestinal: See HPI for pertinent findings. Genitourinary: Negative for hematuria, urgency, frequency, polyuria, dysuria, or penile discharge. Musculoskeletal: Negative for muscle aches, swelling, arthritis, and arthralgias. Neurologic: CVA. Endocrine: Negative for thyroid problems. Skin: Negative for rash or itching. Psychiatric: Polysubstance abuse Past Medical History Past Medical History: Atrial Fibrillation, Asthma, CVA/TIA, Eye Disorder, GERD/ Reflux, Hyperlipidemia, Hypertension, Osteoarthritis (OA), Prostate Disorder Additional Past Medical History / Comment(s): Bronchial asthma, chronic atrial fibrillation, glaucoma, alcoholism, polysubstance abuse including heroin and cocaine, hepatitis C positive, CVA/TIA 2, acid reflux, hyperlipidemia, osteoarthritis, BPH, hypertension History of Any Multi-Drug Resistant Organisms: None Reported Past Surgical History: Back Surgery, Joint Replacement, Prostate Surgery Additional Past Surgical History / Comment(s): Left total knee surgery, lower lumbar surgery, lumbar pain injections, TURP, colonoscopy, cataracts removed bilaterally. Surgery for a hernia and intra-abdominal surgery for bowel resection felt to be related to a previous bowel obstruction. Past Anesthesia/Blood Transfusion Reactions: No Reported Reaction Past Psychological History: No Psychological Hx Reported Additional Psychological History / Comment(s): Pt lives alone. He ambulates with a cane. He states he drives. He manages his own medication. Smoking Status: Never smoker Past Alcohol Use History: Occasional Additional Past Alcohol Use History / Comment(s): Pt states he drinks 2-3 shots 3 days a week and sometimes a pint of liquor a day. Denies smoking or any other drugs-drug screen positive for cocaine 12/10/16 and positive for opiates as well. Past Drug Use History: Cocaine, Heroin Additional Drug Use History / Comment(s): Pt denies street drug use. 12/10/16 toxicology + for cocaine. - Past Family History Father Family Medical History: Cancer Additional Family Medical History / Comment(s): colon cancer Mother Family Medical History: Myocardial Infarction ([place]) Brother(s) Family Medical History: Myocardial Infarction ([place]) Medications and Allergies Home Medications Medication Instructions Recorded Confirmed Type Aspirin EC [Ecotrin Low Dose] 81 mg PO DAILY 02/13/16 12/20/16 History Gabapentin [Neurontin] 300 mg PO HS 02/13/16 12/20/16 History Pravastatin Sodium [Pravachol] 20 mg PO HS 07/26/16 12/20/16 History Ranitidine HCl 300 mg PO HS 07/26/16 12/20/16 History Brimonidine Tartrate [Alphagan P 1 drop BOTH EYES BID 07/27/16 12/20/16 History 0.2% Ophth Soln] Carvedilol [Coreg] 3.125 mg PO BID 07/27/16 12/20/16 History Dorzolamide HCl [Trusopt 2%] 1 drop BOTH EYES BID 07/27/16 12/20/16 History Tamsulosin HCl [Flomax] 0.4 cap PO DAILY 07/27/16 12/20/16 History Timolol [Betimol 0.5% Ophth Soln] 1 drop BOTH EYES BID 07/27/16 12/20/16 History Fluticasone Nasal [place] [Flonase 2 spr EA NOSTRIL DAILY 10/11/16 12/20/16 History Nasal [place]] Multivitamins, Thera [Multivitamin 1 tab PO DAILY 10/11/16 12/20/16 History (formulary)] Albuterol Inhaler [Ventolin Hfa 1 - 2 puff INHALATION RT-Q6H PRN 12/11/16 History Inhaler] Albuterol Nebulized [Ventolin 2.5 mg INHALATION RT-QID PRN 12/11/16 12/20/16 History Nebulized] HYDROcodone/APAP 5-325MG [[place] 1 tab PO Q6HR PRN 12/11/16 12/20/16 History 5-325] Lisinopril [Zestril] 10 mg PO DAILY 12/11/16 12/20/16 History PARoxetine [Paxil] 20 mg PO DAILY 12/11/16 12/20/16 History Allergies Allergy/AdvReac Type Severity Reaction Status Date / Time iodine Allergy Unknown Verified 12/10/16 19:01 Physical Exam Vitals: Vital Signs Temp Pulse Pulse Resp BP BP Pulse Ox 12/22/16 11:30 95 13 123/83 98 12/22/16 11:00 98.2 F 89 20 122/88 96 12/22/16 10:54 78 15 12/22/16 10:45 66 16 120/79 97 12/22/16 10:40 71 16 112/72 97 12/22/16 10:35 72 16 118/76 97 12/22/16 10:30 77 14 107/76 93 L 12/22/16 10:24 75 14 108/72 95 12/22/16 08:00 82 16 12/22/16 07:00 98.0 F 82 16 121/80 94 L 12/21/16 23:00 98.3 F 87 16 121/74 98 12/21/16 15:38 18 12/21/16 15:00 98.1 F 84 18 113/69 99 Intake and Output 12/21/16 12/22/16 12/22/16 22:59 06:59 14:59 Intake Total 0 550 Output Total 380 Balance 0 170 Intake: IV 550 Sodium Chloride 0.9% 1, 200 000 ml @ 100 mls/hr IV . Q10H [facility] Rx#:[id number] Oral 0 Output: Urine 380 Other: Voiding Method Urinal Urinal Urinal # Voids 2 # Bowel Movements 2 General appearance: The patient is alert, oriented, in no acute distress. HET: Head is normocephalic and atraumatic. Pupils are equal and reactive. Oropharynx is clear without lesions. Neck: Supple without lymphadenopathy. Trachea midline. Heart: S1 S2. Regular rate and rhythm. Lungs: No crackles or wheezes are heard. Abdomen: Soft, nontender, nondistended with bowel sounds. No peritoneal signs. No palpable organomegaly or masses. Extremities: Normal skin color and turgor. No cyanosis, rash, ulceration, clubbing, or edema. Radial and pedal pulses are 2/4 bilaterally. Neurological: No focal deficits. Strength and sensation are grossly intact. Results - Laboratory Findings CBC and BMP: 12/22/16 11:20 12/22/16 11:20 PT/INR, D-dimer PT 12.5 sec (9.0-12.0) H 12/22/16 11:20 INR 1.3 (<1.2) H 12/22/16 11:20 Abnormal lab findings: Abnormal Labs 12/20/16 12/20/16 12/20/16 18:32 18:32 18:32 WBC RBC 2.56 L Hgb 8.3 L D Hct 25.3 L MCV MCHC RDW 15.7 H Plt Count 598 H D Neutrophils # Lymphocytes # 0.9 L PT INR Potassium Chloride 108 H Carbon Dioxide 19 L BUN Glucose POC Glucose (mg/dL) Calcium 8.1 L Magnesium Total Protein 5.8 L Albumin 2.6 L Crossmatch See Detail 12/21/16 12/22/16 12/22/16 06:36 10:56 11:20 WBC 10.7 H RBC 2.57 L 2.16 L Hgb 8.1 L 6.8 L* Hct 26.2 L 21.4 L MCV 101.9 H MCHC 30.9 L RDW 16.3 H Plt Count 565 H 641 H Neutrophils # 8.9 H Lymphocytes # 0.8 L PT INR Potassium Chloride Carbon Dioxide BUN Glucose POC Glucose (mg/dL) 132 H Calcium Magnesium Total Protein Albumin Crossmatch 12/22/16 12/22/16 11:20 11:20 WBC RBC Hgb Hct MCV MCHC RDW Plt Count Neutrophils # Lymphocytes # PT 12.5 H INR 1.3 H Potassium 3.4 L Chloride 113 H Carbon Dioxide 18 L BUN 6 L Glucose 107 H POC Glucose (mg/dL) Calcium 6.8 L Magnesium 1.3 L Total Protein Albumin Crossmatch - Diagnostic Findings Chest x-ray: image reviewed (Coarse markings of the left base were noted, possibly postinflammatory changes and fibrotic changes noted in the left lower lobe otherwise unremarkable.) Assessment and Plan Plan: Impression: 1 acute upper GI bleeding from duodenal bulb ulcer, status post epinephrine injections at the site by gastroenterology. 2 acute anemia secondary to upper GI blood loss, hemoglobin this morning is 6.8 , I have recommended transfusing at least 1 unit of packed RBCs, and we'll continue to monitor serial CBCs every 6 hours for the next 24 hours. Transfuse if necessary or if hemoglobin is below 7. 3 history of polysubstance abuse and alcohol abuse, patient will be placed on the alcohol withdrawal protocol utilizing Ativan. 4 history of hepatitis C antibody positive., Hence gastroenterology recommended hepatitis C quantitative measurement of genotype. And recommended alpha-fetoprotein markers. Recommendation: Continue present supportive treatment plan, continue to monitor in the ICU, patient is presently on Protonix, started on alcohol withdrawal protocol, will follow closely. One unit of packed RBC was already ordered. We' ll continue to follow in the intensive care unit. Time with Patient: Greater than 30
--- NOTE | 2016-12-22 12:50 | P.GSCN ---
History of Present Illness Consult date: 12/22/16 Reason for Consult: Bleeding duodenal bulb ulcer History of present illness: Thank you very much for asking us to see this patient. He is a 76-year-old -[place] male admitted with the melena weakness and for the last several days. He apparently reported some bright red blood per rectum a few weeks ago. She states she did have a colonoscopy about 3-4 years ago in the [place] area. He had EGD this morning with the injection by Dr. Parish ayala being found to have a bleeding duodenal bulb ulcer. His hemoglobin dropped from 8 g percent and admission to 6.8 g this morning. He is due to receive a unit of packed red blood cells. Past history positive for multiple medical issues. An admission for drug overdose. Has a history of prior hepatitis C hepatitis cocaine abuse ethanol abuse. Has a history of coronary artery disease atrial fibrillation, hypertension CVA. Several abdominal surgeries including bowel obstruction surgery and hernia repair. Has had had complications after his surgery with a deep furrowed wound in his mid abdomen probably from wound infection. Past history family history social history well-documented. Positive for ethanol abuse and also of prescription drug abuse as well as cocaine abuse. Does take an aspirin a day. Also Zantac 300 and bedtime. On examination the patient is well-built well-nourished weighs about 80.6 kg. Has an NG tube in place. Vitals are stable. Slightly pale. Abdomen reveals a right subcostal scar and a lower midline scar somewhat followed in deep. No abdominal tenderness. No mass or organomegaly noted. No inguinal hernias. NG output is light brownish red in color. Impression. Acute duodenal bulb ulcer bleeding. History of drug abuse. History of ethanol abuse. History of atrial fibrillation. Hypertension. History of CVA and history of hepatitis C. Recommendation. Strongly recommend the incision medical management. High risk for surgical intervention and possibly of portal hypertension. He specifically bleeding. We will monitor him closely. Past Medical History Past Medical History: Atrial Fibrillation, Asthma, CVA/TIA, Eye Disorder, GERD/ Reflux, Hyperlipidemia, Hypertension, Osteoarthritis (OA), Prostate Disorder Additional Past Medical History / Comment(s): Bronchial asthma, chronic atrial fibrillation, glaucoma, alcoholism, polysubstance abuse including heroin and cocaine, hepatitis C positive, CVA/TIA 2, acid reflux, hyperlipidemia, osteoarthritis, BPH, hypertension History of Any Multi-Drug Resistant Organisms: None Reported Past Surgical History: Back Surgery, Joint Replacement, Prostate Surgery Additional Past Surgical History / Comment(s): Left total knee surgery, lower lumbar surgery, lumbar pain injections, TURP, colonoscopy, cataracts removed bilaterally. Surgery for a hernia and intra-abdominal surgery for bowel resection felt to be related to a previous bowel obstruction. Past Anesthesia/Blood Transfusion Reactions: No Reported Reaction Past Psychological History: No Psychological Hx Reported Additional Psychological History / Comment(s): Pt lives alone. He ambulates with a cane. He states he drives. He manages his own medication. Smoking Status: Never smoker Past Alcohol Use History: Occasional Additional Past Alcohol Use History / Comment(s): Pt states he drinks 2-3 shots 3 days a week and sometimes a pint of liquor a day. Denies smoking or any other drugs-drug screen positive for cocaine 12/10/16 and positive for opiates as well. Past Drug Use History: Cocaine, Heroin Additional Drug Use History / Comment(s): Pt denies street drug use. 12/10/16 toxicology + for cocaine. - Past Family History Father Family Medical History: Cancer Additional Family Medical History / Comment(s): colon cancer Mother Family Medical History: Myocardial Infarction ([place]) Brother(s) Family Medical History: Myocardial Infarction ([place]) Medications and Allergies Home Medications Medication Instructions Recorded Confirmed Type Aspirin EC [Ecotrin Low Dose] 81 mg PO DAILY 02/13/16 12/20/16 History Gabapentin [Neurontin] 300 mg PO HS 02/13/16 12/20/16 History Pravastatin Sodium [Pravachol] 20 mg PO HS 07/26/16 12/20/16 History Ranitidine HCl 300 mg PO HS 07/26/16 12/20/16 History Brimonidine Tartrate [Alphagan P 1 drop BOTH EYES BID 07/27/16 12/20/16 History 0.2% Ophth Soln] Carvedilol [Coreg] 3.125 mg PO BID 07/27/16 12/20/16 History Dorzolamide HCl [Trusopt 2%] 1 drop BOTH EYES BID 07/27/16 12/20/16 History Tamsulosin HCl [Flomax] 0.4 cap PO DAILY 07/27/16 12/20/16 History Timolol [Betimol 0.5% Ophth Soln] 1 drop BOTH EYES BID 07/27/16 12/20/16 History Fluticasone Nasal Manson [Flonase 2 spr EA NOSTRIL DAILY 10/11/16 12/20/16 History Nasal Manson] Multivitamins, Thera [Multivitamin 1 tab PO DAILY 10/11/16 12/20/16 History (formulary)] Albuterol Inhaler [Ventolin Hfa 1 - 2 puff INHALATION RT-Q6H PRN 12/11/16 History Inhaler] Albuterol Nebulized [Ventolin 2.5 mg INHALATION RT-QID PRN 12/11/16 12/20/16 History Nebulized] HYDROcodone/APAP 5-325MG [Chester 1 tab PO Q6HR PRN 12/11/16 12/20/16 History 5-325] Lisinopril [Zestril] 10 mg PO DAILY 12/11/16 12/20/16 History PARoxetine [Paxil] 20 mg PO DAILY 12/11/16 12/20/16 History Allergies Allergy/AdvReac Type Severity Reaction Status Date / Time iodine Allergy Unknown Verified 12/10/16 19:01 Surgical - Exam Vital Signs Temp Pulse Resp BP Pulse Ox 100.4 F H 92 19 110/71 98 12/20/16 17:40 12/20/16 17:40 12/20/16 17:40 12/20/16 17:40 12/20/16 17:40 Results - Labs 12/22/16 11:20 12/22/16 11:20 Abnormal Lab Results - Last 24 Hours (Table) 12/20/16 12/22/16 12/22/16 Range/Units 18:32 10:56 11:20 WBC 10.7 H (3.8-10.6) k/uL RBC 2.16 L (4.30-5.90) m/uL Hgb 6.8 L* (13.0-17.5) gm/dL Hct 21.4 L (39.0-53.0) % Plt Count 641 H (150-450) k/uL Neutrophils # 8.9 H (1.3-7.7) k/uL Lymphocytes # 0.8 L (1.0-4.8) k/uL PT (9.0-12.0) sec INR (<1.2) Potassium (3.5-5.1) mmol/L Chloride (98-107) mmol/L Carbon Dioxide (22-30) mmol/L BUN (9-20) mg/dL Glucose (74-99) mg/dL POC Glucose (mg/dL) 132 H (75-99) mg/dL Calcium (8.4-10.2) mg/dL Magnesium (1.6-2.3) mg/dL Crossmatch See Detail 12/22/16 12/22/16 Range/Units 11:20 11:20 WBC (3.8-10.6) k/uL RBC (4.30-5.90) m/uL Hgb (13.0-17.5) gm/dL Hct (39.0-53.0) % Plt Count (150-450) k/uL Neutrophils # (1.3-7.7) k/uL Lymphocytes # (1.0-4.8) k/uL PT 12.5 H (9.0-12.0) sec INR 1.3 H (<1.2) Potassium 3.4 L (3.5-5.1) mmol/L Chloride 113 H (98-107) mmol/L Carbon Dioxide 18 L (22-30) mmol/L BUN 6 L (9-20) mg/dL Glucose 107 H (74-99) mg/dL POC Glucose (mg/dL) (75-99) mg/dL Calcium 6.8 L (8.4-10.2) mg/dL Magnesium 1.3 L (1.6-2.3) mg/dL Crossmatch Diabetes panel 12/22/16 Range/Units 11:20 Sodium 140 (137-145) mmol/L Potassium 3.4 L (3.5-5.1) mmol/L Chloride 113 H (98-107) mmol/L Carbon Dioxide 18 L (22-30) mmol/L BUN 6 L (9-20) mg/dL Creatinine 0.78 (0.66-1.25) mg/dL Glucose 107 H (74-99) mg/dL Calcium 6.8 L (8.4-10.2) mg/dL Calcium panel 12/22/16 Range/Units 11:20 Calcium 6.8 L (8.4-10.2) mg/dL Phosphorus 3.1 (2.5-4.5) mg/dL Pituitary panel 12/22/16 Range/Units 11:20 Sodium 140 (137-145) mmol/L Potassium 3.4 L (3.5-5.1) mmol/L Chloride 113 H (98-107) mmol/L Carbon Dioxide 18 L (22-30) mmol/L BUN 6 L (9-20) mg/dL Creatinine 0.78 (0.66-1.25) mg/dL Glucose 107 H (74-99) mg/dL Calcium 6.8 L (8.4-10.2) mg/dL Adrenal panel 12/22/16 Range/Units 11:20 Sodium 140 (137-145) mmol/L Potassium 3.4 L (3.5-5.1) mmol/L Chloride 113 H (98-107) mmol/L Carbon Dioxide 18 L (22-30) mmol/L BUN 6 L (9-20) mg/dL Creatinine 0.78 (0.66-1.25) mg/dL Glucose 107 H (74-99) mg/dL Calcium 6.8 L (8.4-10.2) mg/dL
[2016-12-22] MEDS ORDERED: MORPHINE SULFATE 2 MG/ML SYRINGE IVP PRN (14:58)
[2016-12-22] MEDS: CARVEDILOL 6.25 MG TAB PO SCH ×2 (15:16→16:26)
[2016-12-22] MEDS: PARoxetine 20 MG TAB PO SCH (15:16)
[2016-12-22] MEDS: LISINOPRIL 10 MG TAB PO SCH (15:16)
[2016-12-22] MEDS: MULTIVITAMINS, THERA 1 EACH TAB PO SCH (15:16)
[2016-12-22] MEDS: TAMSULOSIN 0.4 MG CAP.ER.24H PO SCH (15:17)
[2016-12-22] MEDS: SODIUM CHLORIDE 0.9% 1,000 ML IV SCH ×2 (15:17→21:06)
[2016-12-22] MEDS: THIAMINE 100 MG TAB PO SCH (16:26)
[2016-12-22 16:51] LABS: Anisocytosis Slight; Basophils # (A) 0.1 k/uL (0-0.2); Basophils % (A) 0 %; CH 32.8; CHCM 33.7; Eosinophils # (A) 0.2 k/uL (0-0.7); Eosinophils % (A) 1 %; HCT 30.7 % (39.0-53.0); Luc # (Auto) 0.23; Luc % (Auto) 2; Lymphocytes # (A) 1.2 k/uL (1.0-4.8); Lymphocytes % (A) 9 %; MCH 31.1 pg (25.0-35.0); MCHC 31.7 g/dL (31.0-37.0); MCV 97.9 fL (80.0-100.0); Macrocytosis Slight; Mean Platelet Volume 8.3; Monocytes # (A) 0.8 k/uL (0-1.0); Monocytes % (A) 6 %; Neutrophils # (A) 10.4 k/uL (1.3-7.7); Neutrophils % (A) 81 %; RBC 3.13 m/uL (4.30-5.90); RDW 16.8 % (11.5-15.5); WBC 12.9 k/uL (3.8-10.6); WBC (Perox) 13.07
[2016-12-22 16:55] LABS: HGB 9.7 gm/dL (13.0-17.5)
[2016-12-22] MEDS: HYDROmorphone 1 MG/ML 1 ML SYRINGE IVP PRN ×2 (18:03→23:16)
[2016-12-22] MEDS: GABAPENTIN 300 MG CAP PO SCH (21:06)
[2016-12-22] MEDS: PRAVASTATIN SODIUM 20 MG TAB PO SCH (21:06)
[2016-12-22] MEDS: FAMOTIDINE 20 MG TAB PO SCH (21:06)
[2016-12-22 21:33] LABS: Anisocytosis Slight; CH 32.3; CHCM 33.6; HCT 31.3 % (39.0-53.0); HDW 3.48; HGB 10.2 gm/dL (13.0-17.5); MCH 31.6 pg (25.0-35.0); MCHC 32.5 g/dL (31.0-37.0); Macrocytosis Slight; Mean Platelet Volume 7.1; Poikilocytosis Slight; RBC 3.23 m/uL (4.30-5.90); RDW 17.2 % (11.5-15.5); WBC 15.7 k/uL (3.8-10.6)
[2016-12-22] MEDS ORDERED: Potassium Replacement Protocol 1 EACH MISC MISCELLANE PRN (22:16)
[2016-12-22] MEDS ORDERED: Magnesium Replacement Protocol 1 EACH MISC MISCELLANE PRN (22:39)
[2016-12-22] MEDS: POTASSIUM CHLORIDE 10 MEQ, LIDOCAINE 2% INJ 10 MG in SODIUM CHLORIDE 0.9% 100 ML IV SCH ×2 (22:42→23:16)
[2016-12-22 23:14] LABS: Glucose,Whole Blood 104 mg/dL (75-99)
[2016-12-22] MEDS: MAGNESIUM SULFATE-D5W PMX 1 GM in DEXTROSE/WATER 1 100ML.BAG IVPB SCH (23:16)
[2016-12-23] MEDS: MAGNESIUM SULFATE-D5W PMX 1 GM in DEXTROSE/WATER 1 100ML.BAG IVPB SCH ×2 (00:25→01:55)
--- NOTE | 2016-12-23 00:52 | P.PN ---
Subjective Principal diagnosis: Acute GI bleed 76-year-old male with a history of HTN, CVA/TIA, GERD, chronic kidney disease, hepatitis C reactive antibody, polysubstance heroin cocaine alcohol abuse, recently hospitalized with altered mental status 10 days ago toxic encephalopathy secondary to IV drug abuse presents to ER with reports of black colored bowel movements for the past several days. Patient was recently discharged from the hospital and was admitted for alcohol withdrawal and IV drug abuse and metabolic and toxic encephalopathy. He states that the weakness is severe. He denies any chest pain or shortness of breath. He denies any further drug use or alcohol use since being home. He denies any abdominal pain, nausea, vomiting, or diarrhea. He denies any other complaints or modifying factors. Admission hemoglobin 8.3. MCV 98. Platelets 598. BUN 9. Creatinine 1.0. INR 1.1. Hemoglobin during last admission was 10. Chest x-ray showed no acute process 12/22/2016 Patient had EGD done today showed bleeding vessel at the duodenal bulb. Patient was given 5 mL up epinephrine. Hemoglobin 6.8 today morning Patient is hemodialysis stable. Chief complaint of abdominal pain and requesting to increase pain medications. Patient is being transfused with 1 unit of PRBC today. No fever no chills. Patient is currently being monitored in the ICU Objective - Vital Signs Vital signs: Vital Signs Temp 99.5 F 12/22/16 20:00 Pulse 100 12/22/16 21:00 Resp 12 12/22/16 21:00 BP 104/69 12/22/16 21:00 Pulse Ox 97 12/22/16 21:00 Intake & Output 12/22/16 12/22/16 12/23/16 06:59 18:59 06:59 Intake Total 0 2390 1070 Output Total 675 100 Balance 0 1715 970 Intake: IV 1150 450 Sodium Chloride 0.9% 1, 800 450 000 ml @ 150 mls/hr IV . Q6H40M [facility] Rx#:[id number] Oral 0 Blood Product 1240 620 Rc As-3 Unit 310 [id number] Rc Pheresis 2 As3 Unit 0 310 [id number] Rc Pheresis As-3 Unit 310 [id number] Output: Urine 675 100 Other: Voiding Method Urinal Indwelling Catheter Indwelling Catheter # Voids 2 # Bowel Movements 2 - Exam PHYSICAL EXAMINATION: Patient is lying in the bed comfortably, no acute distress, awake alert and oriented.. HEENT: Normocephalic. Neck is supple. Pupils reactive. Nostrils clear. Oral cavity is moist. Ears reveal no drainage. Neck reveals no JVD, carotid bruits, or thyromegaly. CHEST EXAMINATION: Trachea is central. Symmetrical expansion. Lung dailey clear to auscultation and percussion. CARDIAC: Normal S1, S2 with no gallops. No murmurs ABDOMEN: Soft. Bowel sounds normal. No organomegaly. No abdominal bruits. Abdominal tenderness mainly epigastric. no guarding no rigidity Extremities reveal no edema. No clubbing or cyanosis Neurologically awake, alert, oriented x3 with well-coordinated movements. Skin: no rash or skin lesions Musculoskeletal: no joint swelling or deformity. - Labs CBC & Chem 7: 12/22/16 21:25 12/22/16 11:20 Labs: Abnormal Lab Results - Last 24 Hours (Table) 12/20/16 12/22/16 12/22/16 Range/Units 18:32 10:56 11:20 WBC 10.7 H (3.8-10.6) k/uL RBC 2.16 L (4.30-5.90) m/uL Hgb 6.8 L* (13.0-17.5) gm/dL Hct 21.4 L (39.0-53.0) % RDW (11.5-15.5) % Plt Count 641 H (150-450) k/uL Neutrophils # 8.9 H (1.3-7.7) k/uL Lymphocytes # 0.8 L (1.0-4.8) k/uL PT (9.0-12.0) sec INR (<1.2) Potassium (3.5-5.1) mmol/L Chloride (98-107) mmol/L Carbon Dioxide (22-30) mmol/L BUN (9-20) mg/dL Glucose (74-99) mg/dL POC Glucose (mg/dL) 132 H (75-99) mg/dL Calcium (8.4-10.2) mg/dL Magnesium (1.6-2.3) mg/dL Crossmatch See Detail 12/22/16 12/22/16 12/22/16 Range/Units 11:20 11:20 16:42 WBC 12.9 H (3.8-10.6) k/uL RBC 3.13 L (4.30-5.90) m/uL Hgb 9.7 L D (13.0-17.5) gm/dL Hct 30.7 L (39.0-53.0) % RDW 16.8 H (11.5-15.5) % Plt Count 710 H (150-450) k/uL Neutrophils # 10.4 H (1.3-7.7) k/uL Lymphocytes # (1.0-4.8) k/uL PT 12.5 H (9.0-12.0) sec INR 1.3 H (<1.2) Potassium 3.4 L (3.5-5.1) mmol/L Chloride 113 H (98-107) mmol/L Carbon Dioxide 18 L (22-30) mmol/L BUN 6 L (9-20) mg/dL Glucose 107 H (74-99) mg/dL POC Glucose (mg/dL) (75-99) mg/dL Calcium 6.8 L (8.4-10.2) mg/dL Magnesium 1.3 L (1.6-2.3) mg/dL Crossmatch 12/22/16 Range/Units 21:25 WBC 15.7 H (3.8-10.6) k/uL RBC 3.23 L (4.30-5.90) m/uL Hgb 10.2 L (13.0-17.5) gm/dL Hct 31.3 L (39.0-53.0) % RDW 17.2 H (11.5-15.5) % Plt Count 560 H (150-450) k/uL Neutrophils # (1.3-7.7) k/uL Lymphocytes # (1.0-4.8) k/uL PT (9.0-12.0) sec INR (<1.2) Potassium (3.5-5.1) mmol/L Chloride (98-107) mmol/L Carbon Dioxide (22-30) mmol/L BUN (9-20) mg/dL Glucose (74-99) mg/dL POC Glucose (mg/dL) (75-99) mg/dL Calcium (8.4-10.2) mg/dL Magnesium (1.6-2.3) mg/dL Crossmatch Assessment and Plan Plan: #1 acute blood loss anemia secondary to bleeding duodenal bulb ulcers. 5 mL of epinephrine was given. Closely being monitored in the ICU. Patient was seen by general surgery and patient is high risk for surgery and is being monitored medically. We'll consider transferring to this indicated facility if he continues to bleed. Patient is being given 1 unit of PRBC today since the hemoglobin is 6.8 today AM improved to 10.2 #2 history of alcohol abuse and recent admission. Denied any further alcohol use after discharging home #3 hepatitis C #4 polysubstance abuse including heroine and cocaine #5 hypertension #6 history of CVA/TIA Plan: Continue to follow H&H and transfuse as needed. Patient had duodenal bulb ulcer. High risk for surgery. General surgery and pulmonary is following this patient. Continue to monitor in ICU. We will continue to monitor for alcohol withdrawal symptoms. Continue current management and further recommendations based on the clinical course. Time with Patient: Greater than 30
[2016-12-23] MEDS: SODIUM CHLORIDE 0.9% 1,000 ML IV SCH ×2 (03:11→09:10)
[2016-12-23] MEDS: THIAMINE 100 MG TAB PO SCH ×2 (04:18→09:12)
[2016-12-23 05:08] LABS: Anisocytosis Slight; Basophils % (A) 0 %; CH 31.3; CHCM 33.5; Eosinophils % (A) 0 %; HCT 28.6 % (39.0-53.0); HDW 3.87; HGB 9.5 gm/dL (13.0-17.5); Hypochromasia Slight; Luc # (Auto) 0.21; Luc % (Auto) 2; Lymphocytes % (A) 8 %; MCH 31.3 pg (25.0-35.0); MCHC 33.1 g/dL (31.0-37.0); MCV 94.5 fL (80.0-100.0); Mean Platelet Volume 7.4; Monocytes # (A) 0.8 k/uL (0-1.0); Monocytes % (A) 6 %; Neutrophils # (A) 10.9 k/uL (1.3-7.7); Neutrophils % (A) 84 %; Poikilocytosis Slight; RBC 3.03 m/uL (4.30-5.90); RDW 17.3 % (11.5-15.5)
[2016-12-23 05:23] LABS: Anion Gap 8 mmol/L; Blood Urea Nitrogen 21 mg/dL (9-20); Calcium 8.1 mg/dL (8.4-10.2); Carbon Dioxide 20 mmol/L (22-30); Chloride 108 mmol/L (98-107); Glucose 123 mg/dL (74-99); Magnesium 2.4 mg/dL (1.6-2.3); Non-African American GFR(MDRD) >60 (>60 ml/min/1.73 sqM); Phosphorous 3.3 mg/dL (2.5-4.5); Potassium 4.8 mmol/L (3.5-5.1); Sodium 136 mmol/L (137-145)
[2016-12-23 06:09] LABS: Glucose,Whole Blood 127 mg/dL (75-99)
[2016-12-23] MEDS ORDERED: SODIUM CHLORIDE 0.9% 1,000 ML IV SCH (09:00)
[2016-12-23] MEDS: CARVEDILOL 6.25 MG TAB PO SCH (09:09)
[2016-12-23] MEDS: PANTOPRAZOLE 40 MG/10 ML VIAL IV SCH (09:10)
[2016-12-23] MEDS: PARoxetine 20 MG TAB PO SCH (09:11)
[2016-12-23] MEDS: TAMSULOSIN 0.4 MG CAP.ER.24H PO SCH (09:11)
[2016-12-23] MEDS: TIMOLOL 0.5% OPHTH DROPS 5 ML BTL BOTH EYES SCH (09:11)
[2016-12-23] MEDS: BRIMONIDINE TARTRATE 0.2% DROPS 5 ML BTL BOTH EYES SCH (09:11)
[2016-12-23] MEDS: LISINOPRIL 10 MG TAB PO SCH (09:11)
[2016-12-23] MEDS: FLUTICASONE 50MCG/SPRAY NASAL 16GM EA NOSTRIL SCH (09:11)
[2016-12-23] MEDS: MULTIVITAMINS, THERA 1 EACH TAB PO SCH (09:11)
[2016-12-23] MEDS: DORZOLAMIDE HCL 2% DROPS 10 ML BTL BOTH EYES SCH (09:11)
[2016-12-23 10:44] VITALS: TEMP 97.9
--- NOTE | 2016-12-23 11:14 | P.PN ---
Subjective Principal diagnosis: Acute upper GI bleeding from duodenal bulb ulcer This is a 76-year-old male with history of chronic atrial fibrillation, chronic kidney disease, hepatitis C, polysubstance abuse including heroin and cocaine and alcohol abuse, recently hospitalized for altered mental status and toxic encephalopathy secondary to IV drug abuse. Patient is also known to have history of GERD, chronic atrial fibrillation and previous CVA. Patient presented to the hospital with few weeks history of black colored stools and sometimes bright red bowel movements. Patient was also complaining of fatigue, no chest pain, no fever, no chills, no hemoptysis. Admission hemoglobin was 8.3 rest of the coagulation profile was relatively unremarkable. Patient underwent EGD today by Dr. Arriaga, and he was found to have a duodenal bulb ulcer required injection of epinephrine to control the bleeding. Postoperatively, patient was transferred to the ICU and I was asked to see him on consultation. Patient had a total of 5 ML of epinephrine injected into the bleeding ulcer. Upon my evaluation, patient was noted to be comfortable, hemodynamically stable, and in no distress. Patient was reevaluated today on 12/23/2016, patient took a downhill course early this morning with significant amount of upper GI bleeding, bright red blood, and blood clots were noted. Patient became a bit hypotensive and tachycardic, responded to fluids and to further transfusions. Patient received so far 5 units of packed RBCs, and #6 is about to be transfused. Considering the worsening upper GI bleeding, gastroenterology staff was approached, and he recommended surgical intervention. However when the surgeon was approached he felt that the patient is high risk, and he should be transferred to a tertiary care center. Another surgical opinion was obtained from Dr. lopez, and he felt basically the same. Hence I called the transfer team at [facility], discussed the case with the transfer team including the ICU surgeon allocations clerk, and the patient was accepted for possible transfer today. They would arrange for a bed and able call us back. In the meantime the patient will be further stabilized for any further episodes of upper GI bleeding. And blood is ready to be transfused if needed. Hemoglobin this morning was 9.5. Basic metabolic profile is normal. WBC count is 13.0. Patient is afebrile. Temp is 97 9 pulse is ranging between 99 up to 111 blood pressure 98/73. O2 sat is 99% on 2 L nasal cannula. Objective - Vital Signs Vital signs: Vital Signs Temp 97.9 F 12/23/16 10:20 Pulse 99 12/23/16 10:45 Resp 18 12/23/16 10:45 BP 98/73 12/23/16 10:45 Pulse Ox 99 12/23/16 10:45 Intake & Output 12/22/16 12/23/16 12/23/16 18:59 06:59 18:59 Intake Total 2390 2445 3840 Output Total 675 670 565 Balance 1715 1775 3275 Weight 77.6 kg Intake: IV 1150 1425 2600 Sodium Chloride 0.9% 1, 800 1425 600 000 ml @ 150 mls/hr IV . Q6H40M [facility] Rx#:[id number] Sodium Chloride 0.9% 1, 2000 000 ml @ 999 mls/hr IV . Q1H1M [facility] Rx#:[id number] Intake, IV Titration 400 Amount Magnesium Sulfate-D5w Pmx 300 1 gm In Dextrose/Water 1 100ml.bag @ 100 mls/hr IVPB Q1H [facility] Rx#: [id number] Potassium Chloride 10 meq 100 Lidocaine 2% Inj 10 mg In Sodium Chloride 0.9% 100 ml @ 100 mls/hr IV Q1HR [facility] Rx#:[id number] Blood Product 7357 350 9677 Rc As-1 Unit 0 [id number] Rc As-1 Unit 310 [id number] Rc As-1 Unit 310 [id number] Rc As-3 Unit 310 [id number] Rc Pheresis 2 As3 Unit 0 310 [id number] Rc Pheresis As-3 Unit 310 [id number] Output: Urine 675 670 565 Other: Voiding Method Indwelling Catheter Indwelling Catheter Indwelling Catheter - Exam General appearance: The patient is alert, oriented, in no acute distress. HET: Head is normocephalic and atraumatic. Pupils are equal and reactive. Oropharynx is clear without lesions. Neck: Supple without lymphadenopathy. Trachea midline. Heart: S1 S2. Regular rate and rhythm. Lungs: No crackles or wheezes are heard. Abdomen: Soft, nontender, nondistended with bowel sounds. No peritoneal signs. No palpable organomegaly or masses. Extremities: Normal skin color and turgor. No cyanosis, rash, ulceration, clubbing, or edema. Radial and pedal pulses are 2/4 bilaterally. Neurological: No focal deficits. Strength and sensation are grossly intact. - Labs CBC & Chem 7: 12/23/16 05:00 12/23/16 05:00 Labs: Abnormal Lab Results - Last 24 Hours (Table) 12/20/16 12/22/16 12/22/16 Range/Units 18:32 11:20 11:20 WBC 10.7 H (3.8-10.6) k/uL RBC 2.16 L (4.30-5.90) m/uL Hgb 6.8 L* (13.0-17.5) gm/dL Hct 21.4 L (39.0-53.0) % RDW (11.5-15.5) % Plt Count 641 H (150-450) k/uL Neutrophils # 8.9 H (1.3-7.7) k/uL Lymphocytes # 0.8 L (1.0-4.8) k/uL PT 12.5 H (9.0-12.0) sec INR 1.3 H (<1.2) Sodium (137-145) mmol/L Potassium (3.5-5.1) mmol/L Chloride (98-107) mmol/L Carbon Dioxide (22-30) mmol/L BUN (9-20) mg/dL Glucose (74-99) mg/dL POC Glucose (mg/dL) (75-99) mg/dL Calcium (8.4-10.2) mg/dL Magnesium (1.6-2.3) mg/dL Crossmatch See Detail 12/22/16 12/22/16 12/22/16 Range/Units 11:20 16:42 21:25 WBC 12.9 H 15.7 H (3.8-10.6) k/uL RBC 3.13 L 3.23 L (4.30-5.90) m/uL Hgb 9.7 L D 10.2 L (13.0-17.5) gm/dL Hct 30.7 L 31.3 L (39.0-53.0) % RDW 16.8 H 17.2 H (11.5-15.5) % Plt Count 710 H 560 H (150-450) k/uL Neutrophils # 10.4 H (1.3-7.7) k/uL Lymphocytes # (1.0-4.8) k/uL PT (9.0-12.0) sec INR (<1.2) Sodium (137-145) mmol/L Potassium 3.4 L (3.5-5.1) mmol/L Chloride 113 H (98-107) mmol/L Carbon Dioxide 18 L (22-30) mmol/L BUN 6 L (9-20) mg/dL Glucose 107 H (74-99) mg/dL POC Glucose (mg/dL) (75-99) mg/dL Calcium 6.8 L (8.4-10.2) mg/dL Magnesium 1.3 L (1.6-2.3) mg/dL Crossmatch 12/22/16 12/23/16 12/23/16 Range/Units 23:11 05:00 05:00 WBC 13.0 H (3.8-10.6) k/uL RBC 3.03 L (4.30-5.90) m/uL Hgb 9.5 L (13.0-17.5) gm/dL Hct 28.6 L (39.0-53.0) % RDW 17.3 H (11.5-15.5) % Plt Count 539 H (150-450) k/uL Neutrophils # 10.9 H (1.3-7.7) k/uL Lymphocytes # (1.0-4.8) k/uL PT (9.0-12.0) sec INR (<1.2) Sodium 136 L (137-145) mmol/L Potassium (3.5-5.1) mmol/L Chloride 108 H (98-107) mmol/L Carbon Dioxide 20 L (22-30) mmol/L BUN 21 H (9-20) mg/dL Glucose 123 H (74-99) mg/dL POC Glucose (mg/dL) 104 H (75-99) mg/dL Calcium 8.1 L (8.4-10.2) mg/dL Magnesium 2.4 H (1.6-2.3) mg/dL Crossmatch 12/23/16 Range/Units 06:06 WBC (3.8-10.6) k/uL RBC (4.30-5.90) m/uL Hgb (13.0-17.5) gm/dL Hct (39.0-53.0) % RDW (11.5-15.5) % Plt Count (150-450) k/uL Neutrophils # (1.3-7.7) k/uL Lymphocytes # (1.0-4.8) k/uL PT (9.0-12.0) sec INR (<1.2) Sodium (137-145) mmol/L Potassium (3.5-5.1) mmol/L Chloride (98-107) mmol/L Carbon Dioxide (22-30) mmol/L BUN (9-20) mg/dL Glucose (74-99) mg/dL POC Glucose (mg/dL) 127 H (75-99) mg/dL Calcium (8.4-10.2) mg/dL Magnesium (1.6-2.3) mg/dL Crossmatch Assessment and Plan Plan: Impression: 1 acute upper GI bleeding from duodenal bulb ulcer, status post epinephrine injections at the site by gastroenterology. 2 acute anemia secondary to upper GI blood loss, hemoglobin the following morning after admission was 6.8. I patient received a total of 5 units of packed RBCs since admission. And obviously he has ongoing active bleeding going on, more blood will be required, and most likely will arrange for the patient be transferred to a tertiary care center, I discussed his condition with [facility] transfer team and staff. 3 history of polysubstance abuse and alcohol abuse, patient will be placed on the alcohol withdrawal protocol utilizing Ativan. 4 history of hepatitis C antibody positive., Hence gastroenterology recommended hepatitis C quantitative measurement of genotype. And recommended alpha-fetoprotein markers. Recommendation: Continue present supportive treatment plan, and after discussing the patient with the nursing staff, and the surgical staff, I have called the transfer team at [facility], discussed the case with them, and the patient was accepted for transfer today. The pillowcase sewer will have the transfer, I have also informed the admitting physician about the process. Prognosis remains poor and guarded. Patient is about to receive his sixth unit of packed RBC today. We'll continue to follow closely until transfer to [facility]. Critical care time is 35 minutes. Time with Patient: Greater than 30
[2016-12-23 11:56] VITALS: BP 124/86; PULSE 103; RESP 25
--- NOTE | 2016-12-23 12:25 | P.PN ---
Progress Note - Text The patient was fairly stable yesterday afternoon and through the night. However this morning he had a few more episodes of hematemesis of bright red blood with clots. Became tachycardic. Received a total of 5 units of packed cells since his admission. Hemoglobin did go up to a little over 10 g percent and the last was about 9.6 g percent. On examination he is awake alert. Complaining of some abdominal discomfort. Blood pressure is 109/68. Heart rate about 84 minute. ABDOMEN is soft with mild epigastric tenderness but no guarding or rebound or rigidity. Has a deep scar in the lower midline and the right subcostal scar. Impression acute upper GI bleed and a to duodenal bulb ulcer. Bleeding is ongoing. Multiple medical issues particularly atrial fibrillation history of CVA peripheral vascular occlusive disease COPD renal failure hepatitis C and the abuse of multiple agents including alcohol cocaine prescription drugs etc. I feel he is a very high risk for surgical intervention surgery itself will be quite challenging and difficult in view of his multiple abdominal surgeries in the past as suspected may have a element of portal hypertension which would make him even more prone to bleeding intraoperatively and postoperatively. I think the facilities at a tertiary was tertiary center might be more available especially for more aggressive endoscopic control of his bleeding or embolic in order to avoid a laparotomy..
--- NOTE | 2016-12-23 14:25 | P.GSCN ---
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 His multiple abdominal surgeries in the past and significant medical history he is currently being managed in the ICU for complex medical issues and his current GI bleed. GI recommended surgical consultation on the DrCathy Frost had recommended transfer to higher level of care because of his complexity. I'm here to evaluate for possibility of doing it here Review of Systems All systems: negative Past Medical History Past Medical History: Atrial Fibrillation, Asthma, CVA/TIA, Eye Disorder, GERD/ Reflux, Hyperlipidemia, Hypertension, Osteoarthritis (OA), Prostate Disorder Additional Past Medical History / Comment(s): Bronchial asthma, chronic atrial fibrillation, glaucoma, alcoholism, polysubstance abuse including heroin and cocaine, hepatitis C positive, CVA/TIA 2, acid reflux, hyperlipidemia, osteoarthritis, BPH, hypertension History of Any Multi-Drug Resistant Organisms: None Reported Past Surgical History: Back Surgery, Joint Replacement, Prostate Surgery Additional Past Surgical History / Comment(s): Left total knee surgery, lower lumbar surgery, lumbar pain injections, TURP, colonoscopy, cataracts removed bilaterally. Surgery for a hernia and intra-abdominal surgery for bowel resection felt to be related to a previous bowel obstruction. Past Anesthesia/Blood Transfusion Reactions: No Reported Reaction Past Psychological History: No Psychological Hx Reported Additional Psychological History / Comment(s): Pt lives alone. He ambulates with a cane. He states he drives. He manages his own medication. Smoking Status: Never smoker Past Alcohol Use History: Occasional Additional Past Alcohol Use History / Comment(s): Pt states he drinks 2-3 shots 3 days a week and sometimes a pint of liquor a day. Denies smoking or any other drugs-drug screen positive for cocaine 12/10/16 and positive for opiates as well. Past Drug Use History: Cocaine, Heroin Additional Drug Use History / Comment(s): Pt denies street drug use. 12/10/16 toxicology + for cocaine. - Past Family History Father Family Medical History: Cancer Additional Family Medical History / Comment(s): colon cancer Mother Family Medical History: Myocardial Infarction ([place]) Brother(s) Family Medical History: Myocardial Infarction ([place]) Medications and Allergies Home Medications Medication Instructions Recorded Confirmed Type Aspirin EC [Ecotrin Low Dose] 81 mg PO DAILY 02/13/16 12/20/16 History Gabapentin [Neurontin] 300 mg PO HS 02/13/16 12/20/16 History Pravastatin Sodium [Pravachol] 20 mg PO HS 07/26/16 12/20/16 History Ranitidine HCl 300 mg PO HS 07/26/16 12/20/16 History Brimonidine Tartrate [Alphagan P 1 drop BOTH EYES BID 07/27/16 12/20/16 History 0.2% Ophth Soln] Carvedilol [Coreg] 3.125 mg PO BID 07/27/16 12/20/16 History Dorzolamide HCl [Trusopt 2%] 1 drop BOTH EYES BID 07/27/16 12/20/16 History Tamsulosin HCl [Flomax] 0.4 cap PO DAILY 07/27/16 12/20/16 History Timolol [Betimol 0.5% Ophth Soln] 1 drop BOTH EYES BID 07/27/16 12/20/16 History Fluticasone Nasal [place] [Flonase 2 spr EA NOSTRIL DAILY 10/11/16 12/20/16 History Nasal [place]] Multivitamins, Thera [Multivitamin 1 tab PO DAILY 10/11/16 12/20/16 History (formulary)] Albuterol Inhaler [Ventolin Hfa 1 - 2 puff INHALATION RT-Q6H PRN 12/11/16 History Inhaler] Albuterol Nebulized [Ventolin 2.5 mg INHALATION RT-QID PRN 12/11/16 12/20/16 History Nebulized] HYDROcodone/APAP 5-325MG [[place] 1 tab PO Q6HR PRN 12/11/16 12/20/16 History 5-325] Lisinopril [Zestril] 10 mg PO DAILY 12/11/16 12/20/16 History PARoxetine [Paxil] 20 mg PO DAILY 12/11/16 12/20/16 History Allergies Allergy/AdvReac Type Severity Reaction Status Date / Time iodine Allergy Unknown Verified 12/10/16 19:01 Surgical - Exam Vital Signs Temp Pulse Resp BP Pulse Ox 100.4 F H 92 19 110/71 98 12/20/16 17:40 12/20/16 17:40 12/20/16 17:40 12/20/16 17:40 12/20/16 17:40 - General moderate distress, chronically ill - Respiratory normal respiratory effort - Cardiovascular Rhythm: regular - Abdomen Vision wound was inspected his abdomen inspected his right upper quadrant stepladder fashion incision as well as a lower midline incision with incisional hernia. He is likely that a hostile abdomen multiple previous operations Results - Labs 12/23/16 05:00 12/23/16 05:00 Abnormal Lab Results - Last 24 Hours (Table) 12/20/16 12/22/16 12/22/16 Range/Units 18:32 16:42 21:25 WBC 12.9 H 15.7 H (3.8-10.6) k/uL RBC 3.13 L 3.23 L (4.30-5.90) m/uL Hgb 9.7 L D 10.2 L (13.0-17.5) gm/dL Hct 30.7 L 31.3 L (39.0-53.0) % RDW 16.8 H 17.2 H (11.5-15.5) % Plt Count 710 H 560 H (150-450) k/uL Neutrophils # 10.4 H (1.3-7.7) k/uL Sodium (137-145) mmol/L Chloride (98-107) mmol/L Carbon Dioxide (22-30) mmol/L BUN (9-20) mg/dL Glucose (74-99) mg/dL POC Glucose (mg/dL) (75-99) mg/dL Calcium (8.4-10.2) mg/dL Magnesium (1.6-2.3) mg/dL Crossmatch See Detail 12/22/16 12/23/16 12/23/16 Range/Units 23:11 05:00 05:00 WBC 13.0 H (3.8-10.6) k/uL RBC 3.03 L (4.30-5.90) m/uL Hgb 9.5 L (13.0-17.5) gm/dL Hct 28.6 L (39.0-53.0) % RDW 17.3 H (11.5-15.5) % Plt Count 539 H (150-450) k/uL Neutrophils # 10.9 H (1.3-7.7) k/uL Sodium 136 L (137-145) mmol/L Chloride 108 H (98-107) mmol/L Carbon Dioxide 20 L (22-30) mmol/L BUN 21 H (9-20) mg/dL Glucose 123 H (74-99) mg/dL POC Glucose (mg/dL) 104 H (75-99) mg/dL Calcium 8.1 L (8.4-10.2) mg/dL Magnesium 2.4 H (1.6-2.3) mg/dL Crossmatch 12/23/16 Range/Units 06:06 WBC (3.8-10.6) k/uL RBC (4.30-5.90) m/uL Hgb (13.0-17.5) gm/dL Hct (39.0-53.0) % RDW (11.5-15.5) % Plt Count (150-450) k/uL Neutrophils # (1.3-7.7) k/uL Sodium (137-145) mmol/L Chloride (98-107) mmol/L Carbon Dioxide (22-30) mmol/L BUN (9-20) mg/dL Glucose (74-99) mg/dL POC Glucose (mg/dL) 127 H (75-99) mg/dL Calcium (8.4-10.2) mg/dL Magnesium (1.6-2.3) mg/dL Crossmatch Diabetes panel 12/23/16 Range/Units 05:00 Sodium 136 L (137-145) mmol/L Potassium 4.8 (3.5-5.1) mmol/L Chloride 108 H (98-107) mmol/L Carbon Dioxide 20 L (22-30) mmol/L BUN 21 H (9-20) mg/dL Creatinine 1.10 (0.66-1.25) mg/dL Glucose 123 H (74-99) mg/dL Calcium 8.1 L (8.4-10.2) mg/dL Calcium panel 12/23/16 Range/Units 05:00 Calcium 8.1 L (8.4-10.2) mg/dL Phosphorus 3.3 (2.5-4.5) mg/dL Pituitary panel 12/23/16 Range/Units 05:00 Sodium 136 L (137-145) mmol/L Potassium 4.8 (3.5-5.1) mmol/L Chloride 108 H (98-107) mmol/L Carbon Dioxide 20 L (22-30) mmol/L BUN 21 H (9-20) mg/dL Creatinine 1.10 (0.66-1.25) mg/dL Glucose 123 H (74-99) mg/dL Calcium 8.1 L (8.4-10.2) mg/dL Adrenal panel 12/23/16 Range/Units 05:00 Sodium 136 L (137-145) mmol/L Potassium 4.8 (3.5-5.1) mmol/L Chloride 108 H (98-107) mmol/L Carbon Dioxide 20 L (22-30) mmol/L BUN 21 H (9-20) mg/dL Creatinine 1.10 (0.66-1.25) mg/dL Glucose 123 H (74-99) mg/dL Calcium 8.1 L (8.4-10.2) mg/dL Assessment and Plan (1) Acute blood loss anemia Status: Acute (2) Altered mental status Status: Acute (3) Dehydration Status: Acute (4) ETOH abuse Status: Acute (5) GI bleed Status: Acute (6) Hepatitis C antibody test positive Status: Acute (7) Melena Status: Acute (8) Opiate abuse, continuous Status: Acute (9) Polysubstance abuse Status: Acute (10) Syncope Status: Acute (11) Weakness Status: Acute Plan: I agree with transfusing more blood because of his blood loss. The patient has multiple medical problems which are too numerous to enumerated including hepatitis C and ethanol abuse and known history of liver did have liver dysfunction and atrial fibrillation. He's had multiple abdominal surgeries. The patient is a very complex with significant amount of issues and I do agree with Dr. Frost that this patient should be transferred to a higher level of care for intervention purposes.
[2016-12-24 15:01] LABS: HCV Qualitative Result Not detected (Not detected)
--- NOTE | 2016-12-25 01:08 | P.DS ---
Providers Date of admission: 12/20/16 21:49 Expected date of discharge: 12/23/16 Attending physician: Joyce Reddy Consults: 12/20/16 21:50 Consult Physician Urgent Consulting Provider: Oscar Lugo Consult Reason/Comments: gi bleed Do you want consulting provider notified?: Yes 12/22/16 10:34 Consult Physician Urgent Consulting Provider: Agatha Sykes Consult Reason/Comments: ICU management Do you want consulting provider notified?: Yes 12/22/16 10:47 Consult Physician Urgent Consulting Provider: Cecilio Frost Consult Reason/Comments: bleeding duodenal ulcer Do you want consulting provider notified?: Yes 12/23/16 08:49 Consult Physician Stat Consulting Provider: Yamileth Ortiz Consult Reason/Comments: ugi bleeding 2nd opinion re surgery Do you want consulting provider notified?: Yes Primary care physician: Fernando Spence Hospital Course: Discharge diagnosis #1 acute blood loss anemia secondary to bleeding duodenal bulb ulcers. 5 mL of epinephrine was given. Closely being monitored in the ICU. Patient was seen by general surgery and patient is high risk for surgery and is being monitored medically. We'll consider transferring to this indicated facility if he continues to bleed. Patient is being given 1 unit of PRBC today since the hemoglobin is 6.8 today AM improved to 10.2 #2 history of alcohol abuse and recent admission. Denied any further alcohol use after discharging home #3 hepatitis C #4 polysubstance abuse including heroine and cocaine #5 hypertension #6 history of CVA/TIA Hospital course. 76-year-old male with a history of HTN, CVA/TIA, GERD, chronic kidney disease, hepatitis C reactive antibody, polysubstance heroin cocaine alcohol abuse, recently hospitalized with altered mental status 10 days ago toxic encephalopathy secondary to IV drug abuse presents to ER with reports of black colored bowel movements for the past several days. Patient was recently discharged from the hospital and was admitted for alcohol withdrawal and IV drug abuse and metabolic and toxic encephalopathy. He states that the weakness is severe. He denies any chest pain or shortness of breath. He denies any further drug use or alcohol use since being home. He denies any abdominal pain, nausea, vomiting, or diarrhea. He denies any other complaints or modifying factors. Admission hemoglobin 8.3. MCV 98. Platelets 598. BUN 9. Creatinine 1.0. INR 1.1. Hemoglobin during last admission was 10. Chest x-ray showed no acute process 12/22/2016 Patient had EGD done today showed bleeding vessel at the duodenal bulb. Patient was given 5 mL up epinephrine. Hemoglobin 6.8 today morning Patient is hemodialysis stable. Chief complaint of abdominal pain and requesting to increase pain medications. Patient is being transfused with 1 unit of PRBC today. No fever no chills. Patient is currently being monitored in the ICU 12/23/2016 Patient is awake and oriented. Patient had hypotension today and NG tube drained about 300 mL of agustin blood. Patient was given fluid bolus as well as continued on blood transfusion. Due to patient being a high risk for surgery and it was recommended to be transferred to tertiary care facility. I did discuss with intensive care unit team at [facility] and is willing to ask the patient. Patient will be transferred to [facility] via [facility]. Patient is hemodynamically stable with blood pressure 98/70 and did not require pressor support at this time. Patient was transferred to [facility] in stable condition. Time taken greater than 35 minutes including 18 minutes for counseling and coordination of care Patient Condition at Discharge: Fair Plan - Discharge Summary New Discharge Prescriptions: No Action Gabapentin [Neurontin] 300 mg PO HS Aspirin EC [Ecotrin Low Dose] 81 mg PO DAILY Ranitidine HCl 300 mg PO HS Pravastatin Sodium [Pravachol] 20 mg PO HS Timolol [Betimol 0.5% Ophth Soln] 1 drop BOTH EYES BID Tamsulosin HCl [Flomax] 0.4 cap PO DAILY Dorzolamide HCl [Trusopt 2%] 1 drop BOTH EYES BID Carvedilol [Coreg] 3.125 mg PO BID Brimonidine Tartrate [Alphagan P 0.2% Ophth Soln] 1 drop BOTH EYES BID Multivitamins, Thera [Multivitamin (formulary)] 1 tab PO DAILY Fluticasone Nasal [place] [Flonase Nasal [place]] 2 spr EA NOSTRIL DAILY ALPRAZolam [Xanax] 0.25 mg PO TID PRN #20 tab PRN Reason: Anxiety traMADol HCl [Ultram] 50 mg PO QID PRN #20 tab PRN Reason: Pain HYDROcodone/APAP 5-325MG [[place] 5-325] 1 tab PO Q6HR PRN PRN Reason: Pain PARoxetine [Paxil] 20 mg PO DAILY Albuterol Inhaler [Ventolin Hfa Inhaler] 1 - 2 puff INHALATION RT-Q6H PRN PRN Reason: Shortness Of Breath Lisinopril [Zestril] 10 mg PO DAILY Albuterol Nebulized [Ventolin Nebulized] 2.5 mg INHALATION RT-QID PRN PRN Reason: Shortness Of Breath Thiamine [Vitamin B-1] 100 mg PO DAILY #14 tablet Discharge Medication List Aspirin EC [Ecotrin Low Dose] 81 mg PO DAILY 02/13/16 [History] Gabapentin [Neurontin] 300 mg PO HS 02/13/16 [History] Pravastatin Sodium [Pravachol] 20 mg PO HS 07/26/16 [History] Ranitidine HCl 300 mg PO HS 07/26/16 [History] Brimonidine Tartrate [Alphagan P 0.2% Ophth Soln] 1 drop BOTH EYES BID 07/27/16 [History] Carvedilol [Coreg] 3.125 mg PO BID 07/27/16 [History] Dorzolamide HCl [Trusopt 2%] 1 drop BOTH EYES BID 07/27/16 [History] Tamsulosin HCl [Flomax] 0.4 cap PO DAILY 07/27/16 [History] Timolol [Betimol 0.5% Ophth Soln] 1 drop BOTH EYES BID 07/27/16 [History] Fluticasone Nasal [place] [Flonase Nasal [place]] 2 spr EA NOSTRIL DAILY 10/11/16 [ History] Multivitamins, Thera [Multivitamin (formulary)] 1 tab PO DAILY 10/11/16 [History ] ALPRAZolam [Xanax] 0.25 mg PO TID PRN #20 tab 10/15/16 [Rx] traMADol HCl [Ultram] 50 mg PO QID PRN #20 tab 10/16/16 [Rx] Albuterol Inhaler [Ventolin Hfa Inhaler] 1 - 2 puff INHALATION RT-Q6H PRN [History] Albuterol Nebulized [Ventolin Nebulized] 2.5 mg INHALATION RT-QID PRN 12/11/16 [ History] HYDROcodone/APAP 5-325MG [[place] 5-325] 1 tab PO Q6HR PRN 12/11/16 [History] Lisinopril [Zestril] 10 mg PO DAILY 12/11/16 [History] PARoxetine [Paxil] 20 mg PO DAILY 12/11/16 [History] Thiamine [Vitamin B-1] 100 mg PO DAILY #14 tablet 12/17/16 [Rx] Discharge Disposition: OTHER INSTITUTION NOT DEFINED
== END 2016-12-23 13:39 | disposition short-term general hospital (02) | DRG 378 ==
LOC: EC 17:34 → 5MS5E 21:49 → 6ICU 12-22 10:23
PROVIDERS: ADMIT Hospitalist; ATTEND Hospitalist
PROC: 30230N1 Transfusion of Nonautologous Red Blood Cells into Peripheral Vein, Open Approach (ICD-10-PCS; 2016-12-22)
PROC: 0W3P8ZZ Control Bleeding in Gastrointestinal Tract, Via Natural or Artificial Opening Endoscopic (ICD-10-PCS; principal; 2016-12-22 08:25)
PROC: 0D9670Z Drainage of Stomach with Drainage Device, Via Natural or Artificial Opening (ICD-10-PCS; 2016-12-23)
DX: K26.4 Chronic or unspecified duodenal ulcer with hemorrhage (principal); B37.81 Candidal esophagitis; E44.0 Moderate protein-calorie malnutrition; K76.6 Portal hypertension; I48.2 Chronic atrial fibrillation; J44.9 Chronic obstructive pulmonary disease, unspecified; F10.239 Alcohol dependence with withdrawal, unspecified; I12.9 Hypertensive chronic kidney disease with stage 1 through stage 4 chronic kidney disease, or unspecified chronic kidney disease; F11.10 Opioid abuse, uncomplicated; D62 Acute posthemorrhagic anemia; E86.0 Dehydration; F14.10 Cocaine abuse, uncomplicated; B19.20 Unspecified viral hepatitis C without hepatic coma; Z86.73 Personal history of transient ischemic attack (TIA), and cerebral infarction without residual deficits; K21.9 Gastro-esophageal reflux disease without esophagitis; E78.5 Hyperlipidemia, unspecified; M19.91 Primary osteoarthritis, unspecified site; H40.9 Unspecified glaucoma; N40.0 Benign prostatic hyperplasia without lower urinary tract symptoms; K44.9 Diaphragmatic hernia without obstruction or gangrene; N18.9 Chronic kidney disease, unspecified; Z79.82 Long term (current) use of aspirin; Z79.899 Other long term (current) drug therapy; I25.10 Atherosclerotic heart disease of native coronary artery without angina pectoris; Z87.11 Personal history of peptic ulcer disease; Z96.652 Presence of left artificial knee joint; Z98.42 Cataract extraction status, left eye; Z98.41 Cataract extraction status, right eye; Z91.041 Radiographic dye allergy status
CPT/HCPCS: 36415; 43255; 71020; 80048; 80053; 81003; 82105; 82272; 82550; 82553; 83735; 84100; 84484; 85025; 85027; 85610; 85730; 86850; 86900; 86901; 86920; 87522; 93005; 96361; 96374; 99285